=== PATIENT | female | born 1935 | race Caucasian/White ===

== ENCOUNTER → 2020-01-16 09:42 | Outpatient (BNVA) | payer MEDICARE, MEDICAID, SELFPAY | PROVIDERS: Visit Provider Internal Medicine Gastroenterology | DX: K74.60 Unspecified cirrhosis of liver (principal); R18.8 Other ascites; I85.00 Esophageal varices without bleeding; D69.6 Thrombocytopenia, unspecified; M06.9 Rheumatoid arthritis, unspecified; Z98.890 Other specified postprocedural states | CPT/HCPCS: 99213 ==

== ENCOUNTER 2020-01-20 11:39 | Observation (INO) | payer MEDICARE, MEDICAID, SELFPAY ==
[2020-01-20] VITALS (8 sets, daily range): BP systolic 120–180; BP diastolic 61–78; PULSE 53–73; RESP 18–20; TEMP 36.7–37.2; O2SAT 94–100; BMI 55.4
--- NOTE | 2020-01-20 | XR_ITS ---
EXAMINATION: XR KNEE, RIGHT CLINICAL INFORMATION: Right knee pain status post fall. COMPARISON: None TECHNIQUE: Four views of the right knee. FINDINGS: The femoral tibial joint spaces are unremarkable. A subcortical cyst is seen along the articular surface of the patella. There is no acute fracture or dislocation. No joint effusion is seen. The soft tissues are unremarkable. IMPRESSION: Probable degenerative subcortical cyst along the articular surface of the patella without other significant degenerative changes or acute abnormality.
--- NOTE | 2020-01-20 | CT_ITS ---
EXAMINATION: CT ANGIOGRAM NECK WITH CONTRAST CT ANGIOGRAM BRAIN WITH CONTRAST CLINICAL INFORMATION: Subarachnoid hemorrhage. COMPARISON: Head CT performed earlier the same day. TECHNIQUE: Test bolus sequences followed by intravenous administration 70 mL of Omnipaque 350. Helical imaging was performed in the axial plane from the thoracic inlet to the skull vertex. Delayed postcontrast imaging of the head was also performed. The data was processed at the senior medical technologist workstation for generation of MIP sequences. Angled MIPs and volume rendered reformatted images were also generated at an offline 3D workstation under concurrent supervision. Stenoses are assessed in accordance with NASCET criteria unless otherwise indicated. This CT examination was performed using dose optimization techniques as appropriate, variously including the following: *Automated exposure control *Adjustment of mA and/or kV according to patient size (this includes techniques or standardized protocols for targeted exams where dose is matched to indication/reason for exam; i.e. extremities or head) *Use of iterative reconstruction technique FINDINGS: BRAIN: Acute subarachnoid hemorrhage within multiple left greater than right cerebral sulci better demonstrated on the recent noncontrast CT of the head. There is no intracranial hemorrhage, hydrocephalus, extra-axial surface collection, midline shift, or other herniation pattern. Saunders to white matter differentiation is diffusely maintained without evidence of an evolved acute territorial infarct. The basilar cisterns are preserved. Near-complete opacification of the left maxillary sinus again noted. Prominent soft tissue density adjacent to the right hemimandible with adjacent reticulation, likely hematoma that should be correlated with direct visual inspection. No fractures. CERVICAL SOFT TISSUES AND LUNG APICES: Linear atelectasis versus scarring within the right upper lobe. Multilevel cervical spondylosis. NECK CTA: Left common carotid artery arises from the brachiocephalic artery, an anatomic variant. Proximal arch vessels are non-stenotic. The vertebral arteries are codominant. No significant ostial stenosis is visualized on either side. Both vertebral arteries are widely patent throughout their extracranial cervical course. Both common and internal carotid arteries are normal in course and caliber.] BRAIN CTA: [There is normal opacification of major intracranial arteries. No focal flow-limiting stenosis nor discrete proximal large artery occlusion. No aneurysm. Timing of the contrast bolus allows assessment of the major dural venous sinuses, which all opacify normally] IMPRESSION: - Acute subarachnoid hemorrhage within multiple left greater than right cerebral sulci better demonstrated on the recent noncontrast CT of the head. - No aneurysms and no high flow vascular malformations. No acute arterial occlusions and no significant arterial stenoses. - Prominent soft tissue density adjacent to the right hemimandible with adjacent reticulation, likely hematoma that should be correlated with direct visual inspection. No fractures. - Near-complete opacification of the left maxillary sinus central calcification again noted. Underlying mycetoma not excluded.
--- NOTE | 2020-01-20 | XR_ITS ---
EXAMINATION: CR X-RAY HAND AND WRIST LEFT CLINICAL INFORMATION: Left hand pain status post fall. COMPARISON: None TECHNIQUE: 4 views of the left hand and wrist were obtained. FINDINGS: There is generalized osteopenia. Mild radiocarpal degenerative joint changes are seen. A thinly corticated subcortical cyst is seen in the distal radial epiphysis measuring 0.8 cm. There is no acute fracture or dislocation. The carpal bones are normally aligned. The mild soft tissue swelling is seen in the second digit. IMPRESSION: 1. Mild radiocarpal degenerative joint changes. A subcortical cyst in the distal radius is nonspecific, but demonstrates benign features and may be degenerative in nature. 2. Mild soft tissue swelling in the second digit without acute underlying abnormality.
--- NOTE | 2020-01-20 | CT_ITS ---
EXAMINATION: CT HEAD WITHOUT CONTRAST CT CERVICAL SPINE WITHOUT CONTRAST CLINICAL INFORMATION: Status post fall. COMPARISON: Head CT report dated 01/15/2020. TECHNIQUE: Contiguous axial imaging was performed from the skullbase to vertex without intravenous administration of contrast. Multidetector helical imaging was performed through the cervical spine. Limited study with motion artifacts. This CT examination was performed using dose optimization techniques as appropriate, variously including the following: *Automated exposure control *Adjustment of mA and/or kV according to patient size (this includes techniques or standardized protocols for targeted exams where dose is matched to indication/reason for exam; i.e. extremities or head) *Use of iterative reconstruction technique DLP: 297.8, 632.6 mGy-cm. FINDINGS: HEAD: There are scattered mild amounts of subarachnoid hemorrhage in the cerebral sulci, more so on the left cerebral hemisphere. There is no evidence of acute territorial infarction. No abnormal mass effect or midline shift is seen. Saunders to white matter differentiation is well preserved. No extra-axial fluid collections are identified. The ventricles are normal in size. Mild chronic white matter microangiopathic changes. Mild right facial soft tissue swelling noted. The osseous structures are normal. Mild amount of fluid in the dependent right mastoid air cells. There is moderate mucosal thickening with areas of high density and calcification inferiorly in the left maxillary antrum. The remaining paranasal sinuses are aerated. CERVICAL SPINE: No acute fracture is identified in the cervical spine. There is significant disc space narrowing with mild endplate spurring and a retrosubluxation at C4-C5. Milder loss of disc height with degenerative endplate changes also visible at C6-C7. Multilevel facet arthropathy present, more severe on the right side at C5-C6. The atlantoaxial articulation is normally maintained. The paraspinal soft tissues are normal. There is scarring and bronchiectasis in the right upper lobe. The imaged left lung is clear. IMPRESSION: Limited study with motion artifacts. 1. Mild amount of scattered subarachnoid hemorrhage, more so on the left frontal sulci. 2. No evidence of acute cervical spine traumatic injury. Multilevel cervical spondylosis. 3. Moderate left maxillary sinus disease with calcific density in the dependent portion of the sinus. An underlying small mycetoma cannot be ruled out. Imaging findings discussed with ROBBY Earl at 2:06 PM on 01/20/2020.
--- NOTE | 2020-01-20 | XR_ITS ---
EXAMINATION: XR ELBOW, RIGHT CLINICAL INFORMATION: Right elbow pain status post fall. COMPARISON: None TECHNIQUE: AP, lateral, and oblique views of the right elbow. FINDINGS: The bones and soft tissues are normal. No fracture or joint effusion. Alignment is anatomic. Joint spaces are maintained. IMPRESSION: Unremarkable right elbow.
--- NOTE | 2020-01-20 | XR_ITS ---
EXAMINATION: CR X-RAY HAND AND WRIST RIGHT CLINICAL INFORMATION: Right hand and wrist pain. COMPARISON: None TECHNIQUE: 4 views of the right hand and wrist were obtained. FINDINGS: Mild radiocarpal degenerative joint changes are seen. The carpal bones are normally aligned. A tiny density seen distal to the ulnar styloid. The carpal bones are normally aligned. The soft tissues are unremarkable. IMPRESSION: 1. Mild radiocarpal degenerative joint changes. 2. Tiny density distal to the ulnar styloid is nonspecific, but does not appear acute and could be degenerative in nature or represent a nonunion ossification center.
--- NOTE | 2020-01-20 11:57 | PC.NURSE ---
SONS PHONE NUMBER AND NOTE OF CONCERN AURELIA MONROE [phone] CALLED, AND STATED THAT THE PATIENT HAS RECENTLY EXPERIENCED HEADACHES AND RECENTLY HAD A CT SCAN, HE JUST WANTED A PROVIDER TO KNOW OF THIS PRIOR TO TREATMENT.
--- NOTE | 2020-01-20 13:20 | PC.NURSE ---
PATIENT TRANSPORTED TO RADIOLOGY
--- NOTE | 2020-01-20 13:30 | ED.FALL ---
HPI - Fall General Chief Complaint: Fall Stated Complaint: LAC R EYE S/P TRIP&FALL @ [facility] Time Seen by Provider: 01/20/20 12:51 Source: patient Mode of arrival: EMS Limitations: language barrier (Malaysian Speaking) History of Present Illness HPI Narrative: 84yoF c PMHx of DM, HTN,breast cancer, thrombocytopenia, esophageal varices without bleeding and cirrhosis of liver with ascited presenting to the ED via EMS after she tripped and fell while walking out of [employer] witnessed by her Son c head injury no LOC reports being on aspirin otherwise no other blood thinner's c pain to R preorbital, eyebrow, chin, neck, R elbow, hand/wrist, L hand/wrist c abrasion, and R knee c abrasion. Unable to Clear C-spine due to c-spinal tenderness. Denies symptoms prior to the fall such as Dizziness, palpitations, CP/SOB or back pain. Related Data Home Medications Medication Instructions Recorded Confirmed blood sugar diagnostic #10 alycia 01/15/20 01/16/20 bumetanide 1 mg tablet 0.5 mg PO DAILY 01/15/20 01/20/20 cholecalciferol (vitamin D3) 50 50 mcg PO DAILY 01/15/20 01/20/20 mcg (2,000 unit) capsule ferrous sulfate 325 mg (65 mg 325 mg PO DAILY 01/15/20 01/20/20 iron) tablet lancets 28 gauge #100 01/15/20 01/16/20 lisinopril 5 mg tablet 5 mg PO DAILY 01/15/20 01/20/20 metformin 500 mg tablet 500 mg PO BID 01/15/20 01/20/20 oxycodone 5 mg tablet 5 mg PO BID 01/15/20 01/20/20 simvastatin 20 mg tablet 20 mg PO DAILY 01/15/20 01/20/20 syringe with needle 1 mL 27 x 1/2 #1 01/15/20 01/16/20 Allergies Allergy/AdvReac Type Severity Reaction Status Date / Time No Known Allergies* Allergy Uncoded 01/02/20 15:20 Review of Systems Review of Systems: Yes all other systems are reviewed and are negative Constitutional: Constitutional: Reports as per HPI, Denies frequent falls, Denies headache(s) and Denies weakness Eyes: Eyes: Reports as per HPI, Denies blurry vision, Denies change in vision, Denies loss of vision and Denies eye pain ENT: Reports as per HPI, Denies vertigo, Denies dizziness, Denies headache(s) and Denies disequilibrium Cardiovascular: Cardiovascular: Reports as per HPI, Denies chest pain, Denies Epigastric Pain, Denies syncope, Denies rapid heart rate, Denies pedal edema, Denies irregular heart rhythm, Denies lightheadedness, Denies radiating jaw, neck or arm pain, Denies palpitations, Denies dyspnea and Denies slow heart rate Respiratory: Respiratory: Denies dyspnea Gastrointestinal: Gastrointestinal: Denies diarrhea, Denies nausea and Denies vomiting Genitourinary: Genitourinary: Reports as per HPI Musculoskeletal: Musculoskeletal: Reports as per HPI, Denies abnormal gait, Denies back pain, Denies deformity, Denies limited range of motion, Denies numbness, Denies radiating pain into limb and Denies tingling Integumentary/Breasts: Skin/Breast: Reports as per HPI Neurologic: Reports as per HPI, Denies abnormal gait, Denies confusion, Denies vertigo, Denies dizziness, Denies syncope, Denies frequent falls, Denies headache(s), Denies lack of coordination, Denies focal weakness, Denies loss of vision, Denies memory loss, Denies numbness, Denies Sensory deficit (Neuro), Denies tingling, Denies paresthesias, Denies disequilibrium and Denies weakness Psychiatric: Psychiatric: Denies confusion and Denies memory loss Endocrine: Endocrine: Denies palpitations PMFSH Past Medical History Attestation statement: The following information was validated with the patient. 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 Osteoporosis Rheumatoid arthritis Thrombocytopenia Surgical History History of cholecystectomy (~2010) History of hemorrhoidectomy History of liver biopsy (~04/02/19) History of right mastectomy (~1985) Hx of colonoscopy Social History Social History Alcohol intake: never Smoking Status: Never smoker Use of substances other than those prescribed or required for medical reasons: No Advance Directives: No Advance Directives Information Provided: Yes Physical Exam Vital Signs and I&O and Narrative: Vital Signs and I&O: Vital Signs Temp 99.0 F 01/20/20 18:00 Pulse 66 01/20/20 18:00 Resp 18 01/20/20 18:00 BP 120/61 01/20/20 18:00 Pulse Ox 96 01/20/20 18:00 Intake & Output 01/20/20 01/20/20 01/21/20 06:59 18:59 06:59 Weight 128.7 kg Body Mass Index 55.4 Const: General: cooperative, healthy appearing, comfortable, no acute distress, well developed, alert, awake and Physically active; No confusion Orientation/consciousness: patient oriented x3 and No confusion Limitations: no limitations and language barrier (Malaysian Speaking) HENMT: Head: Yes normal to inspection, Yes No palpable skull fracture present, Yes normocephalic and Yes abrasion (above right eyebrow ) Ears: hearing grossly normal bilaterally and TM's normal bilaterally General nose exam: Normal external nose present, Normal nares present, No nasal polyps present, Normal nasal mucous membranes and turbinates present, Normal septum present, No nasal discharge present and Other nasal findings present (No septal hematoma noted ) Face and sinus: Yes normal facial exam, Yes face symmetric and Yes Facial tenderness on exam of face and sinuses (to right lower chin c contusion noted) Mouth: Normal oral and palatal mucosa present, lip normal, tongue normal, oropharynx normal and moist mucous membranes Teeth and gingiva: dentition normal, gingiva normal and other (No fractures noted to teeth or gingiva.) Throat: Yes posterior oropharynx normal, Yes tonsils normal and Yes uvula midline Eyes: General: appearance normal, both eyes and all related structures Visual Avalos: normal visual avalos by confrontation Alignment and Position: alignment normal Periorbital: periorbital findings normal Eyelids: Yes eyelids normal Conjunctivae: conjunctivae normal Sclerae: sclerae normal Corneas: corneas normal Pupils: Equal, round and reactive pupils present, Pupils normal by confrontation, Pupil accommodation reflex normal and Pupil size comments bilaterally 1 EOM: EOMs intact bilaterally Direct Ophthalmoscopy: normal light reflex, no photophobia, no papilledema, fundi normal bilaterally and anterior chamber normal Neck: Neck: Yes normal visual inspection, Yes trachea midline, Yes supple and No midline deformity Lymphatic: no lymphadenopathy noted Chest: Chest palpation & inspection: normal inspection of the chest and no tenderness Resp: Effort & Inspection: normal respiratory effort and able to speak in complete sentences Auscultation: clear to auscultation bilaterally, no crackles, no rales, no rhonchi and no wheezes Cardio: Rate: regular rate Rhythm: regular rhythm and abnormal rhythm Heart sounds: S1 normal heart sound present and S2 normal heart sound present Peripheral pulses: Peripheral pulses 2+ throughout GI: Inspection: Yes normal to inspection Palpation (GI): Soft to palpation, nontender, no guarding, not rigid and No hepatosplenomegaly present Percussion: Yes normal to percussion Auscultation: normal bowel sounds Back/Spine/Pelvis: Cervical Spine: normal cervical lordosis, cervical ROM normal, collar present, cervical muscular tenderness, Cervical spine tenderness (b/l paracervical muscular and mid-cervical) and No step off deformity Thoracic/Lumbar Spine: thoracic and lumbar spine normal to inspection, thoraco-lumbar ROM normal and straight leg raise negative bilaterally Pelvis: no pain with anterior-posterior compression Skin: General skin exam: no rashes or lesions noted, elasticity normal and turgor normal Neuro: General: patient oriented x3 and No confusion Cranial nerves: Yes CN's II-XII intact bilaterally, Yes Facial sensation intact/muscles of mastication intact, Yes Equal, round and reactive pupils present, Yes Normal accommodation reflex present, Yes Bilaterally intact EOM present, Yes Nystagmus not present, Yes Normal facial strength present, Yes Midline tongue present and Yes Normal gag reflex present Cognition (Neuro): normal cognition Motor exam (neuro): 5/5 motor strength present throughout Sensory Exam: Normal double simultaneous stimulation for sensation; No Sensory deficit (Neuro) Extrem: General: Yes normal to inspection, Yes full ROM, Yes capillary refill normal and Yes normal exam except as noted Right upper extremity: normal to inspection, full ROM, normal capillary refill, elbow/forearm Details: normal to inspection, tenderness, swelling, normal ROM, abrasion and distal pulses intact; no deformity and Extremity exam: right hand Details: normal to inspection, normal capillary refill, neuromotor exam normal, neurosensory exam normal, tendon exam normal, tenderness Location: of the palm and normal ROM of fingers Left upper extremity: normal to inspection, full ROM, normal capillary refill and hand Details: normal to inspection, normal capillary refill, neuromotor exam normal, neurosensory exam normal, tendon exam normal and tenderness Right lower extremity: normal to inspection, full ROM and normal capillary refill Left lower extremity: normal to inspection, full ROM, normal capillary refill and knee Details: normal to inspection, tenderness and abrasion Course Course Course Narrative: First evaluation of patient at 13:40PM. - 84yoF c PMHx of DM, HTN,breast cancer, thrombocytopenia, esophageal varices without bleeding and cirrhosis of liver with ascited presenting to the ED via EMS after she tripped and fell while walking out of [employer] witnessed by her Son c head injury no LOC reports being on aspirin otherwise no other blood thinner's c pain to R preorbital, eyebrow, chin, neck, R elbow, hand/wrist, L hand/wrist c abrasion, and R knee c abrasion. Unable to Clear C-spine due to c-spinal tenderness. Denies symptoms prior to the fall such as Dizziness, palpitations, CP/SOB or back pain. - Pt is A&OX3 not in any acute distress. Pt mildy Hypertensive at 180/78. All other vitals WNL. - Concern for SAH, fracture vs electrolyte abnormalities - Plan: Labs, CT scan of brain/cervical spine, Xray of r elbow, B/L hands/wrist, R knee. Provide Tylenol for pain then re-evaluate. Call received from [facility] at 14:08PM - Pt c mild SAH. Will provide 10mg of labetalol to attempt to lower the blood pressure to 140/80. Plan to Transfer at this time to [facility]. - Still awaiting labs. - Son updated at this time and now in room with Patient. Call received Back from [facility] I spoke to Neurologist at 14:50PM - I spoke to Dr. Neal at [facility] who recommends a CTA to be certain that the SAH did not occur prior to the fall or no prior aneurysms - CTA of head and neck ordered at this time. Consult c Dr. Stern who recommended CTA and if not prior aneurysm admit to our hospital for observation. - CTA head and neck revealed IMPRESSION: - Acute subarachnoid hemorrhage within multiple left greater than right cerebral sulci better demonstrated on the recent noncontrast CT of the head. - No aneurysms and no high flow vascular malformations. No acute arterial occlusions and no significant arterial stenoses. - Prominent soft tissue density adjacent to the right hemimandible with adjacent reticulation, likely hematoma that should be correlated with direct visual inspection. No fractures. - Near-complete opacification of the left maxillary sinus central calcification again noted. Underlying mycetoma not excluded. - I spoke to Dr. Stern the neurologist and he reported that she is able to be admitted here for further evaluation and treatment. Patient and son at bedside understand and agree with plan. Hospitalist understand agree plan as well. MDM - Fall Lab Data Result diagrams: 01/20/20 14:23 01/20/20 14:26 Labs: Lab Results 01/20/20 01/20/20 01/20/20 Range/Units 14:23 14:23 14:26 WBC 4.8 (4.8-10.8) X10*3/uL RBC 4.52 (4.20-5.50) X10*6/uL Hgb 12.5 (12.0-16.0) g/dl Hct 39.5 (37-47) % MCV 87.4 (80-98) fL MCH 27.7 (27.0-33.0) pg MCHC 31.6 (31.0-35.0) g/dl RDW 15.5 (11.0-16.0) % Plt Count 67 L (160-400) X10*3/uL MPV 13.9 H (9.4-12.3) fL Immature Gran % (Auto) 0.2 (0.0-0.4) % Neut % (Auto) 71.7 (45-73) % Lymph % (Auto) 21.6 (20-40) % [place] % (Auto) 5.9 (2-11) % Eos % (Auto) 0.4 (0-4) % Baso % (Auto) 0.2 (0-2) % Neut # (Auto) 3.4 (2.0-8.3) X10*3/uL Lymph # (Auto) 1.0 L (1.2-4.9) X10*3/uL [place] # (Auto) 0.3 (0.1-1.2) X10*3/uL Eos # (Auto) 0.0 (0.0-0.4) X10*3/uL Baso # (Auto) 0.0 (0.0-0.2) X10*3/uL Abs Immat Gran (auto) 0.01 (0.00-0.03) X10*3/uL Absolute Nucleated RBC 0.000 (0.0-0.012) X10*3/uL Nucleated RBC % (auto) 0.0 (0.0-0.2) /100WBC Hold Purple Top SEE NOTE Sodium 142 (135-145) mmol/L Potassium 4.5 (3.3-5.1) mmol/l Chloride 108 (96-108) mmol/L Carbon Dioxide 18 L (22-29) mmol/L Anion Gap 21 H (12-20) BUN 31 H (9-16) mg/dL Creatinine 1.05 (0.5-1.4) mg/dL Estim Creat Clear Calc 48.7 Estimated GFR 50 Random Glucose 114 (60-115) mg/dL Calcium 9.5 (8.4-10.2) mg/dL Critical Care Time Critical Care Time Critical Care Time: Yes Total Critical Care Time: 60 Attestation: I attestate my documentation Discharge Plan Discharge Clinical Impression: SAH (subarachnoid hemorrhage), Abrasion Fall Qualifiers: Encounter type: initial encounter Qualified Code(s): W19.XXXA - Unspecified fall, initial encounter Acute cervical sprain Qualifiers: Encounter type: initial encounter Qualified Code(s): S13.9XXA - Sprain of joints and ligaments of unspecified parts of neck, initial encounter Contusion Qualifiers: Encounter type: initial encounter Contusion area: head Elbow sprain Qualifiers: Encounter type: initial encounter Laterality: right Qualified Code(s): S53.401A - Unspecified sprain of right elbow, initial encounter Hand sprain Qualifiers: Encounter type: initial encounter Laterality: unspecified laterality Qualified Code(s): S63.90XA - Sprain of unspecified part of unspecified wrist and hand, initial encounter Sprain of wrist Qualifiers: Laterality: unspecified laterality Knee sprain Qualifiers: Encounter type: initial encounter Laterality: right Patient Disposition: Admitted As Inpatient Interventions: Admission Worksheet (ED) Last Done: 01/20/20 20:33 Discharge Date/Time: 01/20/20 20:34
[2020-01-20] MEDS: Acetaminophen 325 MG TABLET 650 MG PO (13:37)
--- NOTE | 2020-01-20 13:38 | PC.NURSE ---
pt return from ct scan, medicated per order
--- NOTE | 2020-01-20 14:25 | PC.NURSE ---
PT TX LINE CALLED [phone] @ [facility] REQUEST. RAKEL ANSWERS, TAKES PT INFO, CALL BACK NUMBER AND ASKS TO SPEAK WITH AMBREEN... AMBREEN TAKES OVER CALL RIGHT AWAY @ 14:14 01/20/2020
[2020-01-20] MEDS: Labetalol HCL 100 MG/20 ML VIAL 10 MG IVPUSH (14:28)
--- NOTE | 2020-01-20 14:37 | PC.NURSE ---
iv inserted, labs drawn, vehicle monitor technician applied- [id number], pt medicated per order, vss, son is at bedside per provider request, son also took patients necklace so it doesnt get lost per patient request, will continue to monitor.
[2020-01-20 14:39] LABS: Basophils Percent Auto 0.2 % (0-2); Imm Gran Abs Auto 0.01 X10*3/uL (0.00-0.03); Imm Gran Pct Auto 0.2 % (0.0-0.4); MANUAL DIFF FLAG SCAN; Monocytes Percent Auto 5.9 % (2-11); Red Cell Distribution Width 15.5 % (11.0-16.0); SCAN SMEAR FLAG 1
[2020-01-20 14:40] LABS: Eosinophils Percent Auto 0.4 % (0-4); Hematocrit 39.5 % (37-47); Hemoglobin 12.5 g/dl (12.0-16.0); Lymphocytes Percent Auto 21.6 % (20-40); Mean Corpuscular HGB Conc 31.6 g/dl (31.0-35.0); Mean Corpuscular Hemoglobin 27.7 pg (27.0-33.0); Mean Corpuscular Volume 87.4 fL (80-98); Mean Platelet Volume 13.9 fL (9.4-12.3); Monocytes Absolute Auto 0.3 X10*3/uL (0.1-1.2); Neutrophils Absolute Auto 3.4 X10*3/uL (2.0-8.3); Neutrophils Percent Auto 71.7 % (45-73); Red Blood Count 4.52 X10*6/uL (4.20-5.50); White Blood Count 4.8 X10*3/uL (4.8-10.8)
--- NOTE | 2020-01-20 14:41 | PC.NURSE ---
RETURN CALL FROM RAKEL OF THE [facility] PT TX LINE CALLS BACK TO SPEAK WITH AMBREEN CROOK TAKES CALL RIGHT AWAY @ 14:40
[2020-01-20 14:48] LABS: PLT ABN DIST 1; Platelet Count 67 X10*3/uL (160-400)
[2020-01-20 15:47] LABS: Anion Gap 21 (12-20); Blood Urea Nitrogen 31 mg/dL (9-16); Calcium 9.5 mg/dL (8.4-10.2); Carbon Dioxide 18 mmol/L (22-29); Chloride 108 mmol/L (96-108); Creatinine Clr Calc Pharmacy 48.7; Estimated Glomerular Filt Rate 50; Potassium 4.5 mmol/l (3.3-5.1); Sodium 142 mmol/L (135-145)
[2020-01-20 15:49] LABS: Glucose Random 114 mg/dL (60-115)
--- NOTE | 2020-01-20 16:10 | PC.NURSE ---
PATIENT REMAINS A&OX3, NSR 60S-70S ON JUICE WEIGHER, VSS, WILL CONTINUE TO MONITOR.
[2020-01-20] MEDS: iohexoL 350 MG/ML 100 ML INFUS..BTL IV (16:32)
--- NOTE | 2020-01-20 17:51 | PM.EVENT ---
Event Note Event Note: Admission note Patient seen and examined. Case discussed with Kathe Welsh NP. Agree with her history and physical. in brief, 84-year-old female who presented to hospital after mechanical fall. CT head showing small subarachnoid hemorrhage. Case discussed by the ER providers with Neurology who recommended observation at [facility] [place]. Remainder per H&P
--- NOTE | 2020-01-20 18:29 | PC.NURSE ---
patient a&ox3, cable tester nsr 60-70s, pt watching tv, ate dinner, vss, will continue to monitor.
--- NOTE | 2020-01-20 18:32 | PC.NURSE ---
called floor to give report, no answer by nurse when transferred
--- NOTE | 2020-01-20 18:42 | PM.IMHP ---
History of Present Illness Date of Service: 01/20/20 Chief Complaint: Fall 84-year-old Cook Islander-speaking woman presenting to the ER after a fall. Patient was accompanied by her son. Her son reported that they were at [employer] today and has never walking around the building he heard a Bang and turned around and noted that his mother had fallen. She reported that she had tripped on her foot and fell to the ground. According to the patient's son she had no loss of consciousness at any time. He called EMS immediately. Patient denies any headache, visual changes, loss of consciousness. No recent illness. She had no nausea or vomiting. She was noted to have multiple areas of bruising including to her right eyebrow. Brain CT did show subarachnoid hemorrhage to left cerebral hemisphere. No evidence of acute cervical spine injury. She also had a knee, hand, wrist and elbow x-ray all negative for any acute abnormality. Labs all within acceptable limits. Vital signs stable. In the ER, she received Tylenol, labetalol and Iohexol. She will be placed on observation for monitoring after subarachnoid hemorrhage. Review of Systems Constitutional: Constitutional: Denies frequent falls, Denies headache(s) and Denies weakness Eyes: Eyes: Denies loss of vision ENT: Denies vertigo, Denies dizziness, Denies headache(s) and Denies disequilibrium Cardiovascular: Cardiovascular: Denies syncope Respiratory: Respiratory: Reports no additional respiratory complaints Gastrointestinal: Gastrointestinal: Reports no additional gastrointestinal complaints Comments: Obese abdomen. Musculoskeletal: Musculoskeletal: Denies abnormal gait, Denies numbness and Denies tingling Neurologic: Reports as per HPI, Denies abnormal gait, Denies confusion, Denies vertigo, Denies dizziness, Denies syncope, Denies frequent falls, Denies headache(s), Denies lack of coordination, Denies focal weakness, Denies loss of vision, Denies memory loss, Denies numbness, Denies Sensory deficit (Neuro), Denies tingling, Denies paresthesias, Denies disequilibrium and Denies weakness Psychiatric: Psychiatric: Denies confusion and Denies memory loss [facility] 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 Surgical History History of cholecystectomy (~2010) History of hemorrhoidectomy History of liver biopsy (~04/02/19) History of right mastectomy (~1985) Hx of colonoscopy Social History Alcohol intake: never Smoking Status: Never smoker Use of substances other than those prescribed or required for medical reasons: No Advance Directives: No Advance Directives Information Provided: Yes Meds Allergies Allergy/AdvReac Type Severity Reaction Status Date / Time No Known Allergies* Allergy Uncoded 01/02/20 15:20 Home Medications Medication Instructions Recorded Confirmed Type blood sugar diagnostic #10 ea 01/15/20 01/16/20 History bumetanide 1 mg tablet 0.5 mg PO DAILY 01/15/20 01/20/20 History cholecalciferol (vitamin D3) 50 50 mcg PO DAILY 01/15/20 01/20/20 History mcg (2,000 unit) capsule ferrous sulfate 325 mg (65 mg 325 mg PO DAILY 01/15/20 01/20/20 History iron) tablet lancets 28 gauge #100 ea 01/15/20 01/16/20 History lisinopril 5 mg tablet 5 mg PO DAILY 01/15/20 01/20/20 History metformin 500 mg tablet 500 mg PO BID 01/15/20 01/20/20 History oxycodone 5 mg tablet 5 mg PO BID 01/15/20 01/20/20 History simvastatin 20 mg tablet 20 mg PO DAILY 01/15/20 01/20/20 History syringe with needle 1 mL 27 x 1/2 #1 ea 01/15/20 01/16/20 History Physical Exam Vital Signs and Narrative: Vital Signs: Last Vital Signs Temp 99.0 F 01/20/20 18:00 Pulse 66 01/20/20 18:00 Resp 18 01/20/20 18:00 BP 120/61 01/20/20 18:00 Pulse Ox 96 01/20/20 18:00 Body Mass Index 55.4 Appearing in no acute distress head is normocephalic , Bruise and skin tear to right eyebrow eyes pupils are PERRLA sclera is anicteric mouth throat mucous membranes are intact and moist neck is supple no lymphadenopathy, no JVD noted lung sounds are clear to auscultation heart regular rate rhythm, clear S1, S2 positive bowel sounds, abdomen is soft, nontender, obese from history of cirrhosis neuro patient is alert x3, no focal deficits Const: General: No confusion Orientation/consciousness: No confusion Neuro: General: No confusion Sensory Exam: No Sensory deficit (Neuro) Results Labs Labs: Laboratory Tests 01/20/20 01/20/20 01/20/20 14:23 14:23 14:26 WBC 4.8 RBC 4.52 Hgb 12.5 Hct 39.5 MCV 87.4 MCH 27.7 MCHC 31.6 RDW 15.5 Plt Count 67 L MPV 13.9 H Immature Gran % (Auto) 0.2 Neut % (Auto) 71.7 Lymph % (Auto) 21.6 Sioux % (Auto) 5.9 Eos % (Auto) 0.4 Baso % (Auto) 0.2 Neut # (Auto) 3.4 Lymph # (Auto) 1.0 L Sioux # (Auto) 0.3 Eos # (Auto) 0.0 Baso # (Auto) 0.0 Abs Immat Gran (auto) 0.01 Absolute Nucleated RBC 0.000 Nucleated RBC % (auto) 0.0 Hold Purple Top SEE NOTE Sodium 142 Potassium 4.5 Chloride 108 Carbon Dioxide 18 L Anion Gap 21 H BUN 31 H Creatinine 1.05 Estim Creat Clear Calc 48.7 Estimated GFR 50 Random Glucose 114 Calcium 9.5 Assessment and Plan (1) SAH (subarachnoid hemorrhage): Status: Acute (2) Fall: Qualifiers: Encounter type: initial encounter Qualified Code(s): W19.XXXA - Unspecified fall, initial encounter Status: Acute (3) Hypertension: Status: Acute (4) Diabetes mellitus: Status: Acute 84-year-old woman placed on observation after having a fall and sustaining a subarachnoid hemorrhage. She had no neuro deficits at any point in time. # Subarachnoid hemorrhage. Small area of bleed mainly to the left frontal lobe. No evidence of aneurysmal bleeding. [place] [facility] [place], neuro checks, neurology consultation, repeat brain CT in the morning. # Fall. History of frequent falls. Physical therapy consultation. Admitted with assist. # Hypertension. Stable blood pressure. Continue lisinopril, Bumex # diabetes mellitus. Sliding scale, ADA diet, continue metformin. # hyperlipidemia. Continue statin. #Anemia. Continue iron supplementation #DVT prophylaxis. No chemical prophylaxis due to subarachnoid hemorrhage. Discussed with Dr. Lam full code Quality VTE Deep Vein Thrombosis/Pulmonary Embolism Present on Admission: No Contraindication No VTE Prophylaxis: Contraindicated ( subarachnoid hemorrhage)
--- NOTE | 2020-01-20 18:54 | PC.NURSE ---
attempted to call floor to give report, special education secretary stated she would tiger text the nurse to call
--- NOTE | 2020-01-20 19:51 | PC.NURSE ---
report given to floor
[2020-01-20 21:43] LABS: Glucose, Whole Blood 109 mg/dL (60-115)
[2020-01-20] MEDS: oxyCODONE HCl Immed Release 5 MG TABLET PO (23:19)
[2020-01-21] VITALS (11 sets, daily range): BP systolic 110–134; BP diastolic 58–73; PULSE 55–66; RESP 18–20; TEMP 36.6–37.1; O2SAT 94–100
--- NOTE | 2020-01-21 | CT_ITS ---
EXAMINATION: CT HEAD WITHOUT CONTRAST CLINICAL INFORMATION: Follow-up hemorrhage COMPARISON: Previous head CT scan from yesterday TECHNIQUE: Contiguous axial imaging was performed from the skull base to vertex without intravenous administration of contrast. This CT examination was performed using dose optimization techniques as appropriate, variously including the following: *Automated exposure control *Adjustment of mA and/or kV according to patient size (this includes techniques or standardized protocols for targeted exams where dose is matched to indication/reason for exam; i.e. extremities or head) *Use of iterative reconstruction technique DLP: 696 mGy-cm FINDINGS: There is bilateral subarachnoid hemorrhage, left greater than right. Subarachnoid hemorrhage adjacent to the left frontal lobe appears increased from yesterday's exam. For example, largest area measures 1.3 x 2.3 cm axial image 56 series 4 compared to 1.1 x 1.2 cm on yesterday's exam. Small amount of subarachnoid hemorrhage in the right hemisphere appears decreased. The ventricles and extra-axial CSF spaces are slightly prominent suggestive of mild generalized atrophy. There is mild nonspecific periventricular white matter disease. No mass, mass effect or infarct is seen. There are chronic inflammatory changes in the left maxillary sinus and soft tissue opacification of the right mastoid air cells that appears unchanged. No skull fracture is seen. IMPRESSION: Slight interval increase in extra-axial subarachnoid hemorrhage adjacent to the left frontal lobe compared to yesterday's exam. Findings were communicated to Dr. Lam by telephone on 01/21/2020 at 4:45 PM.
[2020-01-21] MEDS: Ferrous Sulfate 324 MG TABLET.DR PO (08:52)
[2020-01-21] MEDS: oxyCODONE HCl Immed Release 5 MG TABLET PO ×2 (08:52→21:13)
[2020-01-21] MEDS: lisinopriL 5 MG TABLET PO (08:53)
[2020-01-21] MEDS: Atorvastatin Calcium 10 MG TABLET PO (08:53)
[2020-01-21] MEDS: metFORMIN HCl 500 MG TABLET PO ×2 (08:53→21:13)
[2020-01-21] MEDS: Bumetanide 1 MG TABLET 0.5 MG PO (08:53)
--- NOTE | 2020-01-21 13:19 | MHC.CM.PN ---
dc plan is mfor ,pt to mreturn home with her son when dcd dson would be agreeable to cvna if ordered by
--- NOTE | 2020-01-21 15:32 | PM.IMPN ---
Subjective Subjective Date of Service: 01/21/20 Interval History: seen and examined this AM with translator and interpreter services bedside pt reports some wrist and knee pain denies carrero denies n/v Review of Systems General - no fevers or chills Cardiovascular - no chest pain Respiratory - no shortness of breath or cough Abdominal- no abdominal pain, nausea, vomiting, diarrhea Physical Exam Vital Signs and I&O and Narrative: Vital Signs and I&O: Vital Signs Temp 97.9 F 01/21/20 14:00 Pulse 55 01/21/20 14:00 Resp 18 01/21/20 14:00 BP 110/58 L 01/21/20 14:00 Pulse Ox 98 01/21/20 14:00 Intake & Output 01/20/20 01/21/20 01/21/20 18:59 06:59 18:59 Intake Total 200 / 200 360 / 360 Output Total Balance 199 / 199 360 / 360 Urine Output (Aver age ml/kg/hr) 0.00 0.00 Weight 128.7 kg Intake: Intake, Oral Vani unt 200 / 200 360 / 360 Output: Output, Urine Am ount Other: Breakfast % Eate n 75% Lunch % Eaten 75% Number of Unmeas ured Voids 1 Urine Bathroom Bathroom Urine Color Summer Yellow Body Mass Index 55.4 General - no acute distress, appears comfortable Cardiovascular - regular rate and rhythm, S1-S2 Lungs - normal respiratory effort, clear to auscultation bilaterally, no wheezing Abdomen - soft, nontender, no rebound regarding Extremities - no edema bilaterally Neuro - awake and alert, no focal deficits Skin - bruising around the chin, R periorbital swelling Objective Data Current Medications Generic Name Dose Route Start Last Admin Trade Name Kevinq PRN Reason Stop Dose Admin Acetaminophen 650 mg 01/20/20 22:32 Acetaminophen 325 Mg Tablet PO Q6H PRN Fever Atorvastatin Calcium 10 mg 01/21/20 09:00 01/21/20 08:53 Atorvastatin Calcium 10 Mg Tablet PO 10 mg DAILY VY Administration Bumetanide 0.5 mg 01/21/20 09:00 01/21/20 08:53 Bumetanide 1 Mg Tablet PO 0.5 mg DAILY VY Administration Protocol Ferrous Sulfate 324 mg 01/21/20 09:00 01/21/20 08:52 Ferrous Sulfate 324 Mg Tablet. PO 324 mg DAILY VY Administration Lisinopril 5 mg 01/21/20 09:00 01/21/20 08:53 Lisinopril 5 Mg Tablet PO 5 mg DAILY VY Administration Protocol Metformin HCl 500 mg 01/20/20 22:32 01/21/20 08:53 Metformin Hcl 500 Mg Tablet PO 500 mg BID VY Administration Ondansetron HCl 4 mg 01/20/20 22:32 Ondansetron Hcl 4 Mg/2 Ml Vial IVPUSH Q8H PRN Nausea Oxycodone HCl 5 mg 01/20/20 22:32 01/21/20 08:52 Oxycodone Hcl Immed Release 5 Mg Tablet PO 5 mg BID VY Administration Pharmacy Consult 1 each 01/20/20 17:48 Consult Rx Perform Med Rec MISCELLANE ONCE PRN Consult order Vitamin D 50 mcg 01/21/20 09:00 01/21/20 08:53 Cholecalciferol (Vitamin D3) 25 Mcg Tablet PO Not Given DAILY [facility] Labs CBC & Chem 7: 01/20/20 14:23 01/20/20 14:26 Labs: Laboratory Results - last 24 hr 01/20/20 01/20/20 14:26 21:37 Anion Gap 21 H Estim Creat Clear Calc 48.7 Estimated GFR 50 POC Glucose 109 Random Glucose 114 Calcium 9.5 Progress Note: A&P (1) Fall: Status: Acute (2) SAH (subarachnoid hemorrhage): Status: Acute Assessment and Plan: This is a 84 yo F who had a mechanical fall and sustained a small SAH and is admitted for observation 1. Subarachnoid hemorrhage repeat ct order, pending neuro eval and input 2. Mechanical fall seen by PT -- home with PT 3. Hypertension BP stable continue meds 4. diabetes mellitus. ADA diet. Metformin. 5. HLD statin 6. Anemia. Continue iron supplementation mec. due to SAH Quality VTE Deep Vein Thrombosis/Pulmonary Embolism Present on Admission: No Contraindication No VTE Prophylaxis: Contraindicated ( subarachnoid hemorrhage)
[2020-01-22] VITALS (8 sets, daily range): BP systolic 102–141; BP diastolic 51–69; PULSE 58–72; RESP 16–20; TEMP 36.1–36.8; O2SAT 96–98
[2020-01-22 08:08] LABS: Glucose, Whole Blood 98 mg/dL (60-115)
[2020-01-22] MEDS: Atorvastatin Calcium 10 MG TABLET PO (10:00)
[2020-01-22] MEDS: Ferrous Sulfate 324 MG TABLET.DR PO (10:01)
[2020-01-22] MEDS: oxyCODONE HCl Immed Release 5 MG TABLET PO (10:01)
[2020-01-22] MEDS: metFORMIN HCl 500 MG TABLET PO (10:01)
[2020-01-22] MEDS: Cholecalciferol (Vitamin D3) 25 MCG TABLET 50 MCG PO (10:01)
[2020-01-22] MEDS: Bumetanide 1 MG TABLET 0.5 MG PO (10:03)
[2020-01-22 11:37] LABS: Glucose, Whole Blood 110 mg/dL (60-115)
--- NOTE | 2020-01-22 11:54 | MHC.CM.PN ---
per rounds pt likely to be dcd today with vna
--- NOTE | 2020-01-22 11:57 | P.DS_ITS ---
DS: Providers Provider Date of admission: 01/20/20 17:26 Primary care physician: Dom Maynard MD Consults: 01/20/20 22:32 Consult to Neurology Routine Consulting Provider: Radha Stern Reason for consultation: FALL, BLEED Has provider been notified: No DS: Diagnosis Discharge Diagnosis (1) Fall: Status: Acute (2) SAH (subarachnoid hemorrhage): Status: Acute DS: Summary Hospital Course Hospital Course: HPI from the admission H&P: 84-year-old Polish-speaking woman presenting to the ER after a fall. Patient was accompanied by her son. Her son reported that they were at [place] today and has never walking around the building he heard a Bang and turned around and noted that his mother had fallen. She reported that she had tripped on her foot and fell to the ground. According to the patient's son she had no loss of consciousness at any time. He called EMS immediately. Patient denies any headache, visual changes, loss of consciousness. No recent illness. She had no nausea or vomiting. She was noted to have multiple areas of bruising including to her right eyebrow. Brain CT did show subarachnoid hemorrhage to left cerebral hemisphere. No evidence of acute cervical spine injury. She also had a knee, hand, wrist and elbow x-ray all negative for any acute abnormality. Labs all within acceptable limits. Vital signs stable. In the ER, she receiv ed Tylenol, labetalol and Iohexol. She will be placed on observation for monitoring after subarachnoid hemorrhage. patient was observed in the hospital for 2 nights. She remained neurologically stable without any focal deficits. She underwent a repeat CT brain which showed slight increase in her subarachnoid hemorrhage. She was seen by neurology and cleared for discharge. There did recommend a repeat CT scan in about 4-[address] scan has been ordered 5 weeks from discharge. She and her son have been informed not to take any blood thinners until told to to do so by her [facility] doctors. For her fall, she was evaluated by Physical therapy who recommend home with PT at home. Time Spent with Patient Time attestation: Total time spent providing and/or coordinating discharge services: Quality: VTE Contraindication No VTE Prophylaxis: Contraindicated ( subarachnoid hemorrhage) Deep Vein Thrombosis/Pulmonary Embolism Present on Admission: No Physical Exam Vital Signs and I&O and Narrative: Vital Signs and I&O: Vital Signs Temp 98 F 01/22/20 10:00 Pulse 72 01/22/20 10:00 Resp 20 01/22/20 10:00 BP 102/66 01/22/20 11:18 Pulse Ox 97 01/22/20 10:00 Intake & Output 01/21/20 01/22/20 01/22/20 18:59 06:59 18:59 Intake Total 540 / 980 440 / 980 440 / 440 Output Total 300 / 300 Balance 540 / 680 140 / 680 439 / 439 Urine Output (Aver age ml/kg/hr) 0.19 0.00 Intake: Intake, Oral Vani unt 540 / 980 440 / 980 220 / 220 Intake, Oral Sup plement Amount 220 / 220 Output: Output, Urine Am ount 300 / 300 Other: Breakfast % Eate n 75% 100% Lunch % Eaten 75% Dinner % Eaten 75% Number of Unmeas ured Voids 1 1 150 Number of Bowel Movements 1 Urine Bathroom Bathroom Bathroom Urine Color Yellow Yellow Yellow Last Bowel Movem ent 01/22/20 Stool Bathroom Stool Color Brown Stool Consistenc y Pasty Body Mass Index 55.4 DS: Data Data Completed and Pending Labs on day of discharge: Labs from last 24 hours 01/22/20 01/22/20 11:28 08:05 POC Glucose 110 98 Discharge Plan Discharge Patient Disposition: Home Health Service Referrals: Dom Maynard MD [Primary Care Provider] - Discharge Medications: Continued oxycodone 5 mg tablet 5 mg PO BID RF: 0 lisinopril 5 mg tablet 5 mg PO DAILY RF: 0 ferrous sulfate 325 mg (65 mg iron) tablet 325 mg PO DAILY RF: 0 simvastatin 20 mg tablet 20 mg PO DAILY RF: 0 metformin 500 mg tablet 500 mg PO BID RF: 0 (DME) lancets 28 gauge misc See Rx Instructions ea Not Applicable DAILY Qty: 100 RF: 0 (DME) blood sugar diagnostic Strip See Rx Instructions ea Not Applicable DAILY Qty: 10 RF: 0 (DME) syringe with needle 1 mL 27 x 1/2 syringe See Rx Instructions ml subcut QWEEK Qty: 1 RF: 0 bumetanide 1 mg tablet 0.5 mg PO DAILY RF: 0 cholecalciferol (vitamin D3) [Vitamin D3] 50 mcg (2,000 unit) capsule 50 mcg PO DAILY RF: 0 Discharge Orders: Discharge Order (Routine); Ordered 01/22/20 Ordered By: Pelon Lam Diet: advance to your usual diet Activity on Discharge: As tolerated Other Ambulatory Orders: CT head/brain wo con (Routine) Timeframe: 5 Weeks Facility: [facility] - Location: CT Scan Ordered By: Pelon Lam Visit Report Forms: Patient Portal Discharge page Care Plan Goals: Do not take any blood thinners such as aspirin Follow-up with your primary care doctor Repeat a CT scan of the brain in about 5 weeks Health Concerns: Subarachnoid hemorrhage Plan of Treatment: no aspirin and repeat CT scan in about 5 weeks
--- NOTE | 2020-01-22 12:00 | W.MHC.F2F ---
Service Date Service Date: 01/22/20 Encounter Date of encounter: 01/22/20 Reasons for Services Signs and symptoms assessed: Neurological assessment Reason for nursing home: neurological assessment Reason for physical therapy: home safety and mobility and therapeutic exercises overseeing care: Dr. Be Homebound: Leaving the home is medically contraindicated at this time without the asist of a device and/or another person due th the listed conditions above and below. Certification: Based on the above findings, I certify that this patient is confined to the home and needs intermittent nursing home care, physical therapy and/or speech therapy, or continues to need occupational therapy. The patient is under my care, and I have initiated the establishment of the plan of care. The patient will be followed by a physician who will periodically review the plan of care.
--- NOTE | 2020-01-22 15:55 | CONS_ITS ---
DATE OF SERVICE: 01/21/2020 HISTORY OF PRESENT ILLNESS: This is an 84-year-old woman, who was at [place] yesterday and tripped and fell forward, landing on the right side of her face and her right wrist, which had badly bruised. There was no loss of consciousness. She generally has good balance and does not fall. She has no previous history of stroke or TIA. She has no dizziness or headache. She has had x-rays, which are apparently unremarkable. PHYSICAL EXAMINATION: On examination, she is alert and oriented with normal intellectual functions. Cranial nerves II through XII are normal. Muscle tone and strength are normal in all 4 extremities. Deep tendon reflex was symmetrical, 2+. Plantar responses are flexor. Large ecchymosis in the right lower jaw and the left wrist. Ct shows small traumatic SAH IMPRESSION: Head trauma after trip and fall injury. Traumatic subarachnoid hemorrhage. RECOMMENDATION: Observation. No further intervention is necessary. Thank you for allowing me to participate in her care. MD RADHA Durbin/TORIBIO / [phone] MTDGiuliano
== END 2020-01-22 13:49 | disposition home health service (06) ==
LOC: HO.ED 17:22 → HO.IMC 01-21 07:17
PROVIDERS: Physician Assistant Medical; Admitting Provider Nurse Practitioner Acute Care; Emergency Provider Internal Medicine; Visit Provider Family Medicine
DX: S06.6X0A Traumatic subarachnoid hemorrhage without loss of consciousness, initial encounter (principal); S05.31XA Ocular laceration without prolapse or loss of intraocular tissue, right eye, initial encounter; W01.0XXA Fall on same level from slipping, tripping and stumbling without subsequent striking against object, initial encounter; Y93.89 Activity, other specified; Y92.511 Restaurant or cafe as the place of occurrence of the external cause; Y99.8 Other external cause status; M25.561 Pain in right knee; M25.531 Pain in right wrist; M79.641 Pain in right hand; M79.642 Pain in left hand; M25.521 Pain in right elbow; E11.9 Type 2 diabetes mellitus without complications; I10 Essential (primary) hypertension; E78.5 Hyperlipidemia, unspecified; D64.9 Anemia, unspecified; K74.60 Unspecified cirrhosis of liver; I85.10 Secondary esophageal varices without bleeding; Z79.84 Long term (current) use of oral hypoglycemic drugs; Z79.899 Other long term (current) drug therapy
CPT/HCPCS: 36415; 70450; 70496; 70498; 72125; 73080; 73110; 73130; 73564; 80048; 82947; 85025; 96374; 96375; 97110; 97116; 97162; 99219; 99284; 99285; 99291

== ENCOUNTER 2020-01-26 09:39 | Emergency (ER) | payer MEDICARE, MEDICAID, SELFPAY ==
[2020-01-26 09:48] VITALS: BP 136/72; PULSE 64; PULSE 70; RESP 18; TEMP 37.1; O2SAT 100; O2SAT 98; BMI 30.2
--- NOTE | 2020-01-26 10:12 | CT_ITS ---
EXAMINATION: CT HEAD W/O IV CONTRAST CT CERVICAL SPINE W/O IV CONTRAST CLINICAL INFORMATION: History of fall and episode of right arm tremors. COMPARISON: Head CT from 01/20/2020 and 01/21/2020. TECHNIQUE: Head - Contiguous axial imaging of the head was performed from the skull base to the vertex without the administration of intravenous contrast, and axial images are reconstructed at 2 mm and 5 mm slice thickness. Cervical spine - A volumetric, helical CT acquisition of the cervical spine was obtained without contrast; in addition to the standard set of axial images, multiplanar reformatted images were provided in the coronal and sagittal imaging planes. This CT examination was performed using dose optimization techniques as appropriate, variously including the following: *Automated exposure control *Adjustment of mA and/or kV according to patient size (this includes techniques or standardized protocols for targeted exams where dose is matched to indication/reason for exam; i.e. extremities or head) *Use of iterative reconstruction technique DLP: 589 mGy-cm for the head 352 mGy-cm for the cervical spine FINDINGS: HEAD: Interval improvement compared to 01/21/2020 as manifest by significant decreased amount of hyperdense subarachnoid hemorrhage overlying the left frontal lobe. 1.7 x 1.3 x 1.4 cm focus of hyperdense intraparenchymal hemorrhage with surrounding vasogenic edema in the left frontal lobe is stable in size compared to 01/21/2020. No new sites of hemorrhage. No significant mass effect around the intraparenchymal hematoma. No midline shift or other herniation pattern. The ventricles have normal size and configuration; no hydrocephalus. The brainstem and cerebellar hemispheres are unremarkable. The cerebellar tonsils are in normal position. No evidence of calvarial fracture. Mucosal thickening of the partially visualized left maxillary sinus. No air-fluid levels within the visualized paranasal sinuses. Again noted is fluid/opacification of some of the right mastoid air cells. No mastoid fracture. No fracture or malalignment at either temporomandibular joint. Lenses are extracted from the globes of each orbit. CERVICAL SPINE: No acute abnormalities compared to 01/20/2020. The craniocervical junction is normal. The occipital condyles, dens and atlantodental articulation are intact. The vertebral body heights are normal. Again noted is discovertebral degenerative change and minimal retrolisthesis at C4-C5. Mild degenerative disc space narrowing at C6-C7. Multilevel facet osteoarthritis, worst on the right at C5-C6. Facet osteoarthritis at C7-T1 is associated with chronic, 0.2 cm subluxation of C7 on T1. No significant narrowing of the central spinal canal. No fractures in the anterior or posterior elements. No prevertebral soft tissue swelling. Thyroid gland is unremarkable. Again noted is linear opacity of scarring and traction bronchiectasis at right lung apex. No apical pneumothorax. IMPRESSION: * Interval improvement compared to 01/21/2020 as manifest by decreased amount of subarachnoid hemorrhage overlying the left frontal lobe. * A hyperdense intraparenchymal hematoma with surrounding vasogenic edema in the left frontal lobe is stable in size compared to 01/21/2020. No significant mass effect. No new sites of bleeding. * No fractures within the degenerated cervical spine.
--- NOTE | 2020-01-26 10:12 | XR_ITS ---
EXAMINATION: XR CHEST CLINICAL INFORMATION: Right chest wall pain after fall. COMPARISON: None TECHNIQUE: 2 views of the chest were obtained. FINDINGS: Lungs are well expanded and clear. No consolidation, pleural effusion or pneumothorax. Cardiac silhouette is normal in size. The descending thoracic aorta is tortuous. The hilar contours are normal. The visualized bones are intact. No rib fractures are identified on these standard 2 views of the chest. No pneumoperitoneum. IMPRESSION: No acute pulmonary disease.
[2020-01-26 10:28] VITALS: BP 123/61; PULSE 58; RESP 16; O2SAT 98
[2020-01-26 10:40] LABS: Basophils Percent Auto 0.4 % (0-2); Hemoglobin 10.9 g/dl (12.0-16.0); MANUAL DIFF FLAG SCAN; Mean Corpuscular Volume 86.7 fL (80-98); Monocytes Absolute Auto 0.5 X10*3/uL (0.1-1.2); PLT CLUMP 1; Red Cell Distribution Width 15.4 % (11.0-16.0); SCAN SMEAR FLAG 1
[2020-01-26 10:42] LABS: Eosinophils Percent Auto 0.4 % (0-4); Hematocrit 33.9 % (37-47); Imm Gran Abs Auto 0.02 X10*3/uL (0.00-0.03); Imm Gran Pct Auto 0.4 % (0.0-0.4); Lymphocytes Percent Auto 21.3 % (20-40); Mean Corpuscular HGB Conc 32.2 g/dl (31.0-35.0); Mean Corpuscular Hemoglobin 27.9 pg (27.0-33.0); Mean Platelet Volume 11.7 fL (9.4-12.3); Monocytes Percent Auto 9.7 % (2-11); Neutrophils Absolute Auto 3.1 X10*3/uL (2.0-8.3); Neutrophils Percent Auto 67.8 % (45-73); Red Blood Count 3.91 X10*6/uL (4.20-5.50); White Blood Count 4.6 X10*3/uL (4.8-10.8)
[2020-01-26 10:43] LABS: Platelet Count 86 X10*3/uL (160-400)
[2020-01-26 10:44] LABS: SLIDE REVIEW VERIFIED
[2020-01-26 10:48] LABS: INTERNATIONAL NORM RATIO 1.2 (0.9-1.1)
--- NOTE | 2020-01-26 10:54 | ED.GENADULT ---
HPI - General Adult General Chief complaint: General Medical Time Seen by Provider: 01/26/20 09:54 Source: patient, family and EMS Mode of arrival: EMS Limitations: no limitations History of Present Illness HPI narrative: patient brought to the ED for evaluation for resolved right arm tremor. Son noticed while patient was brushing her hair her right arm was tremulous for 5minutes. Patient also states similar story. Patient denies ever losing consciousness. 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 Patient states every episode, she did not lose any consciousness. Patient denies any urinary /bowel incontinence. patient also states right-sided chest pain since she fell last week. Related Data Home Medications Medication Instructions Recorded Confirmed blood sugar diagnostic #10 ea 01/15/20 01/21/20 bumetanide 1 mg tablet 0.5 mg PO DAILY 01/15/20 01/20/20 cholecalciferol (vitamin D3) 50 50 mcg PO DAILY 01/15/20 01/20/20 mcg (2,000 unit) capsule ferrous sulfate 325 mg (65 mg 325 mg PO DAILY 01/15/20 01/20/20 iron) tablet lancets 28 gauge #100 ea 01/15/20 01/21/20 lisinopril 5 mg tablet 5 mg PO DAILY 01/15/20 01/20/20 metformin 500 mg tablet 500 mg PO BID 01/15/20 01/20/20 oxycodone 5 mg tablet 5 mg PO BID 01/15/20 01/20/20 simvastatin 20 mg tablet 20 mg PO DAILY 01/15/20 01/20/20 syringe with needle 1 mL 27 x 1/2 #1 ea 01/15/20 01/21/20 Allergies Allergy/AdvReac Type Severity Reaction Status Date / Time No Known Allergies* Allergy Uncoded 01/02/20 15:20 Review of Systems Review of Systems: Yes all other systems are reviewed and are negative Eyes: Eyes: Reports as per HPI and Reports no additional eye complaints ENT: Reports system reviewed and no additional complaints, except as documented Cardiovascular: Cardiovascular: Reports as per HPI and Reports no additional cardiovascular complaints Respiratory: Respiratory: Reports as per HPI and Reports no additional respiratory complaints Gastrointestinal: Gastrointestinal: Reports as per HPI and Reports no additional gastrointestinal complaints Musculoskeletal: Musculoskeletal: Reports no additional musculoskeletal complaints and Reports as per HPI Neurologic: Reports system reviewed and no additional complaints, except as documented and Reports as per HPI Psychiatric: Psychiatric: Reports no additional psychiatric complaints and Reports as per HPI [facility] Past Medical History Medical History (Updated 01/26/20 @ 14:48 by ROBBY Chang) Abrasion Acute cervical sprain Breast cancer Cirrhosis of liver with ascites Contusion Diabetes mellitus Elbow sprain Esophageal varices without bleeding Hand sprain Hx of breast cancer Hx of hemorrhoids Hypercholesterolemia Hypertension Knee sprain 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 Osteoporosis Rheumatoid arthritis Sprain of wrist Thrombocytopenia Surgical History History of cholecystectomy (~2010) History of hemorrhoidectomy History of liver biopsy (~04/02/19) History of right mastectomy (~1985) Hx of colonoscopy Social History Social History Household Members: Children Alcohol intake: never Smoking Status: Never smoker Use of substances other than those prescribed or required for medical reasons: No Advance Directives: No Advance Directives Information Provided: No service: No Physical Exam Vital Signs: Vital Signs: Vital Signs Temp Pulse Resp BP Pulse Ox 01/26/20 15:10 71 16 132/71 100 01/26/20 12:58 98.3 F 64 18 123/72 01/26/20 10:28 58 16 123/61 98 01/26/20 09:48 98.8 F 64 18 100 Body Mass Index 30.2 Const: General: cooperative and healthy appearing Orientation/consciousness: oriented to person, oriented to place, oriented to time and patient oriented x3 Eyes: General: appearance normal, both eyes and all related structures Neck: Neck: Yes normal visual inspection and Yes full ROM Chest: Chest palpation & inspection: normal inspection of the chest and tenderness ( positive for right upper chest wall tenderness on palpation) Resp: Effort & Inspection: normal respiratory effort, able to speak in complete sentences, normal respiratory pattern, no audible wheezes and no cough Auscultation: clear to auscultation bilaterally Cardio: Jugular venous distension: no JVD Palpation: normal PMI Rhythm: regular rhythm Heart sounds: S1 normal heart sound present GI: Inspection: Yes normal to inspection, No abdominal wall ecchymosis, No Abdominal wall edema, No distended and No incision Palpation (GI): not firm, nontender, no guarding and not rigid Percussion: Yes normal to percussion Auscultation: normal bowel sounds : General: No CVA tenderness and Yes no CVA tenderness Back/Spine/Pelvis: Back: no CVA tenderness, No CVA tenderness, No ecchymosis and No back tenderness Skin: General skin exam: ecchymosis ( positive for ecchymosis of chest wall, right side of face, and jawline. ) Neuro: Other: motor, neuro, and vascular exam of all extremities are intact General: oriented to person, oriented to place, oriented to time, patient oriented x3, gait normal and CN's II-XI intact bilaterally Cranial nerves: Yes CN's II-XII intact bilaterally Extrem: General: Yes normal to inspection Psych: Appearance: grossly normal and well kempt Course Course Course Narrative: Patient to have basic labs including electrolytes such as magnesium and calcium to make sure does not cause of right upper extremity tremors. Patient will also have repeat head CT to make sure bleed has not worsened. Patient also have urine to rule out infection. Patient also have chest x-ray to make sure there is no rib fractures or pneumonia. Reevaluation(s) Reevaluation #1: Patient labs came back normal. Head CT shows improvement of brain bleed. Patient neuro exam is intact. Time: 14:35 Reevaluation #2: Spoke Dr. Faulkner of neurology for concerning of possible new partial seizure. he was informed of patient's history, physical exam, and diagnostics. He states probably patient might have partial seizure, but he recommend patient to be discharged and follow-up at his office for outpatient EEG. Presently he does not recommend any seizure medications. Time: 14:42 Medical Decision Making MDM Narrative Medical decision making narrative: possibly patient might have partial seizure, but as per neurology medication should not be started. Patient is safe for discharge. Patient labs are normal. Patient son Clair was informed of patient's history, physical exam, and diagnostics. He was informed of of the neurologists informing that his mother should follow up outpatient for EEG and presently no seizure meds indicated. Lab Data Result diagrams: 01/26/20 10:35 01/26/20 10:34 Labs: Lab Results 01/26/20 01/26/20 01/26/20 Range/Units 10:34 10:34 10:35 WBC 4.6 L (4.8-10.8) X10*3/uL RBC 3.91 L (4.20-5.50) X10*6/uL Hgb 10.9 L (12.0-16.0) g/dl Hct 33.9 L (37-47) % MCV 86.7 (80-98) fL MCH 27.9 (27.0-33.0) pg MCHC 32.2 (31.0-35.0) g/dl RDW 15.4 (11.0-16.0) % Plt Count 86 L D (160-400) X10*3/uL MPV 11.7 (9.4-12.3) fL Immature Gran % (Auto) 0.4 (0.0-0.4) % Neut % (Auto) 67.8 (45-73) % Lymph % (Auto) 21.3 (20-40) % [place] % (Auto) 9.7 (2-11) % Eos % (Auto) 0.4 (0-4) % Baso % (Auto) 0.4 (0-2) % Lymph # (Auto) 1.0 L (1.2-4.9) X10*3/uL [place] # (Auto) 0.5 (0.1-1.2) X10*3/uL Eos # (Auto) 0.0 (0.0-0.4) X10*3/uL Baso # (Auto) 0.0 (0.0-0.2) X10*3/uL Abs Immat Gran (auto) 0.02 (0.00-0.03) X10*3/uL Absolute Neuts (auto) 3.1 (2.0-8.3) X10*3/uL Absolute Nucleated RBC 0.000 (0.0-0.012) X10*3/uL Nucleated RBC % (auto) 0.0 (0.0-0.2) /100WBC Smear Tech's Comments VERIFIED PT 14.0 H (10.8-13.0) SEC INR 1.2 H (0.9-1.1) APTT 32.0 (24.1-38.0) SEC Sodium 141 (135-145) mmol/L Potassium 4.6 (3.3-5.1) mmol/l Chloride 108 (96-108) mmol/L Carbon Dioxide 24 (22-29) mmol/L Anion Gap 14 (12-20) BUN 28 H (9-16) mg/dL Creatinine 1.17 (0.5-1.4) mg/dL Estim Creat Clear Calc 21.9 Estimated GFR 44 Random Glucose 105 (60-115) mg/dL Calcium 8.8 (8.4-10.2) mg/dL Magnesium 2.0 (1.6-2.6) mg/dL Total Bilirubin 1.2 H (0.0-1.0) mg/dL AST 42 H (5-31) U/L ALT 42 H (0-31) U/L Alkaline Phosphatase 106 (39-117) U/L Total Protein 6.7 (6.5-8.0) g/dL Albumin 3.5 (3.5-5.0) g/dL Urine Color Urine Appearance Urine pH (5.0-8.0) Ur Specific [place] (1.005-1.025) Urine Protein (NEG-TRACE) MG/DL Urine Glucose (UA) (NEG) MG/DL Urine Ketones (NEG) MG/DL Urine Blood (NEG) Urine Nitrite (NEG) Ur Leukocyte Esterase (NEG) 01/26/20 Range/Units 11:05 WBC (4.8-10.8) X10*3/uL RBC (4.20-5.50) X10*6/uL Hgb (12.0-16.0) g/dl Hct (37-47) % MCV (80-98) fL MCH (27.0-33.0) pg MCHC (31.0-35.0) g/dl RDW (11.0-16.0) % Plt Count (160-400) X10*3/uL MPV (9.4-12.3) fL Immature Gran % (Auto) (0.0-0.4) % Neut % (Auto) (45-73) % Lymph % (Auto) (20-40) % [place] % (Auto) (2-11) % Eos % (Auto) (0-4) % Baso % (Auto) (0-2) % Lymph # (Auto) (1.2-4.9) X10*3/uL [place] # (Auto) (0.1-1.2) X10*3/uL Eos # (Auto) (0.0-0.4) X10*3/uL Baso # (Auto) (0.0-0.2) X10*3/uL Abs Immat Gran (auto) (0.00-0.03) X10*3/uL Absolute Neuts (auto) (2.0-8.3) X10*3/uL Absolute Nucleated RBC (0.0-0.012) X10*3/uL Nucleated RBC % (auto) (0.0-0.2) /100WBC Smear Tech's Comments PT (10.8-13.0) SEC INR (0.9-1.1) APTT (24.1-38.0) SEC Sodium (135-145) mmol/L Potassium (3.3-5.1) mmol/l Chloride (96-108) mmol/L Carbon Dioxide (22-29) mmol/L Anion Gap (12-20) BUN (9-16) mg/dL Creatinine (0.5-1.4) mg/dL Estim Creat Clear Calc Estimated GFR Random Glucose (60-115) mg/dL Calcium (8.4-10.2) mg/dL Magnesium (1.6-2.6) mg/dL Total Bilirubin (0.0-1.0) mg/dL AST (5-31) U/L ALT (0-31) U/L Alkaline Phosphatase (39-117) U/L Total Protein (6.5-8.0) g/dL Albumin (3.5-5.0) g/dL Urine Color YELLOW Urine Appearance CLEAR Urine pH 5.5 (5.0-8.0) Ur Specific [place] 1.015 (1.005-1.025) Urine Protein NEG (NEG-TRACE) MG/DL Urine Glucose (UA) NEG (NEG) MG/DL Urine Ketones NEG (NEG) MG/DL Urine Blood NEG (NEG) Urine Nitrite NEG (NEG) Ur Leukocyte Esterase NEG (NEG) Imaging Data CT scan - head: Attestation: I personally reviewed and interpreted this imaging study as follows: Radiologist's impression: FINDINGS: HEAD: Interval improvement compared to 01/21/2020 as manifest by significant decreased amount of hyperdense subarachnoid hemorrhage overlying the left frontal lobe. 1.7 x 1.3 x 1.4 cm focus of hyperdense intraparenchymal hemorrhage with surrounding vasogenic edema in the left frontal lobe is stable in size compared to 01/21/2020. No new sites of hemorrhage. No significant mass effect around the intraparenchymal hematoma. No midline shift or other herniation pattern. The ventricles have normal size and configuration; no hydrocephalus. The brainstem and cerebellar hemispheres are unremarkable. The cerebellar tonsils are in normal position. No evidence of calvarial fracture. Mucosal thickening of the partially visualized left maxillary sinus. No air-fluid levels within the visualized paranasal sinuses. Again noted is fluid/opacification of some of the right mastoid air cells. No mastoid fracture. No fracture or malalignment at either temporomandibular joint. Lenses are extracted from the globes of each orbit. CERVICAL SPINE: No acute abnormalities compared to 01/20/2020. The craniocervical junction is normal. The occipital condyles, dens and atlantodental articulation are intact. The vertebral body heights are normal. Again noted is discovertebral degenerative change and minimal retrolisthesis at C4-C5. Mild degenerative disc space narrowing at C6-C7. Multilevel facet osteoarthritis, worst on the right at C5-C6. Facet osteoarthritis at C7-T1 is associated with chronic, 0.2 cm subluxation of C7 on T1. No significant narrowing of the central spinal canal. No fractures in the anterior or posterior elements. No prevertebral soft tissue swelling. Thyroid gland is unremarkable. Again noted is linear opacity of scarring and traction bronchiectasis at right lung apex. No apical pneumothorax. IMPRESSION: * Interval improvement compared to 01/21/2020 as manifest by decreased amount of subarachnoid hemorrhage overlying the left frontal lobe. * A hyperdense intraparenchymal hematoma with surrounding vasogenic edema in the left frontal lobe is stable in size compared to 01/21/2020. No significant mass effect. No new sites of bleeding. * No fractures within the degenerated cervical spine. Chest x-ray: Attestation: I personally reviewed and interpreted this imaging study as follows: Radiologist's impression: FINDINGS: Lungs are well expanded and clear. No consolidation, pleural effusion or pneumothorax. Cardiac silhouette is normal in size. The descending thoracic aorta is tortuous. The hilar contours are normal. The visualized bones are intact. No rib fractures are identified on these standard 2 views of the chest. No pneumoperitoneum. IMPRESSION: No acute pulmonary disease. Discharge Plan Discharge Clinical Impression: Tremor of right hand, Partial seizure, Chest wall contusion Patient Disposition: Home, Self-Care Instructions: Contusion in Adults (ED), New-Onset Seizure in Adults (ED), Tremors (ED), Seizures After Traumatic Brain Injury (ED) Additional Instructions: return to the ED immediately for any altered mental status, for headache, dizziness, shaking of the whole body, urinary/ bowel incontinence, slurred speech, weakness, chest pain, shortness of breath, or any other concerning symptoms. Prescriptions: No Action oxycodone 5 mg tablet 5 mg PO BID RF: 0 lisinopril 5 mg tablet 5 mg PO DAILY RF: 0 ferrous sulfate 325 mg (65 mg iron) tablet 325 mg PO DAILY RF: 0 simvastatin 20 mg tablet 20 mg PO DAILY RF: 0 metformin 500 mg tablet 500 mg PO BID RF: 0 (DME) lancets 28 gauge misc See Rx Instructions ea Not Applicable DAILY Qty: 100 RF: 0 (DME) blood sugar diagnostic Strip See Rx Instructions ea Not Applicable DAILY Qty: 10 RF: 0 (DME) syringe with needle 1 mL 27 x 1/2 syringe See Rx Instructions ml subcut QWEEK Qty: 1 RF: 0 bumetanide 1 mg tablet 0.5 mg PO DAILY RF: 0 cholecalciferol (vitamin D3) [Vitamin D3] 50 mcg (2,000 unit) capsule 50 mcg PO DAILY RF: 0 Referrals: Julisa Faulkner MD [Physician] - 2 days ( right upper extremity tremors. Possible new onset partial seizure after traumatic brain injury that occurred a week ago) Interventions: ED Discharge Assessment Last Done: 01/26/20 15:04 Print Language: Sudanese
[2020-01-26 11:04] LABS: Alanine Aminotransferase 42 U/L (0-31); Albumin Level 3.5 g/dL (3.5-5.0); Alkaline Phosphatase 106 U/L (39-117); Anion Gap 14 (12-20); Aspartate Amino Transferase 42 U/L (5-31); Bilirubin Total 1.2 mg/dL (0.0-1.0); Blood Urea Nitrogen 28 mg/dL (9-16); Calcium 8.8 mg/dL (8.4-10.2); Carbon Dioxide 24 mmol/L (22-29); Chloride 108 mmol/L (96-108); Creatinine Clr Calc Pharmacy 21.9; Estimated Glomerular Filt Rate 44; Glucose Random 105 mg/dL (60-115); Potassium 4.6 mmol/l (3.3-5.1); Sodium 141 mmol/L (135-145); Total Protein 6.7 g/dL (6.5-8.0)
[2020-01-26 11:13] LABS: Glucose Urine UA NEG (NEG); Leukocyte Esterase Urine NEG (NEG); Nitrite Urine NEG (NEG); PH 5.5 (5.0-8.0); Specific Gravity - Urine 1.015 (1.005-1.025); Urine Blood NEG (NEG); Urine Ketones NEG (NEG); Urine Protein NEG (NEG-TRACE)
[2020-01-26 11:15] LABS: Appearance Urine CLEAR; Color Urine YELLOW
--- NOTE | 2020-01-26 12:47 | PC.NURSE ---
pt ambulated with steady gait to the bathroom
[2020-01-26 12:58] VITALS: BP 123/72; PULSE 64; RESP 18; TEMP 36.8
[2020-01-26 15:10] VITALS: BP 132/71; PULSE 71; RESP 16; O2SAT 100
== END 2020-01-26 15:15 | disposition home or self-care (01) ==
PROVIDERS: Physician Assistant; Emergency Provider Emergency Medicine
DX: S20.219A Contusion of unspecified front wall of thorax, initial encounter (principal); G40.109 Localization-related (focal) (partial) symptomatic epilepsy and epileptic syndromes with simple partial seizures, not intractable, without status epilepticus; R25.1 Tremor, unspecified; X58.XXXA Exposure to other specified factors, initial encounter; Y93.9 Activity, unspecified; Y92.9 Unspecified place or not applicable; Y99.9 Unspecified external cause status; Z79.899 Other long term (current) drug therapy
CPT/HCPCS: 36415; 70450; 71046; 72125; 80053; 81003; 83735; 85025; 85610; 85730; 99284

== ENCOUNTER 2020-01-27 22:46 | Inpatient (IN) | payer MEDICARE, MEDICAID, SELFPAY ==
[2020-01-27 22:52] VITALS: BP 136/86; BP 137/86; PULSE 65; PULSE 69; RESP 20; TEMP 36.9; O2SAT 99; BMI 22.6
--- NOTE | 2020-01-27 23:02 | CT_ITS ---
EXAMINATION: CT HEAD WITHOUT CONTRAST (STROKE PROTOCOL) CLINICAL INFORMATION: Stroke protocol. Slurred speech for 3 hours COMPARISON: None TECHNIQUE: Contiguous axial imaging was performed from the skull base to vertex without intravenous administration of contrast. This CT examination was performed using dose optimization techniques as appropriate, variously including the following: *Automated exposure control *Adjustment of mA and/or kV according to patient size (this includes techniques or standardized protocols for targeted exams where dose is matched to indication/reason for exam; i.e. extremities or head) *Use of iterative reconstruction technique DLP: 627 mGy-cm FINDINGS: There is a region of hyperattenuation consistent with acute intraparenchymal hemorrhage in the left frontal lobe measuring up to approximately 2.8 cm in diameter. There is a thin rim of surrounding edema, without significant mass effect or midline shift. No acute territorial infarct identified. No extra-axial collection is seen. The ventricles are normal in size without hydrocephalus. The yin-white matter differentiation appears symmetric. The calvarium appears intact. There is no pneumocephalus or orbital emphysema. The visualized sinuses and middle ears and mastoid air cells show no significant mucosal thickening. There are no air-fluid levels. IMPRESSION: Region of acute intraparenchymal hemorrhage in the left frontal lobe measuring up to approximately 2.8 cm, with a thin rim of surrounding edema. Underlying mass may be present, and this would be better assessed with MRI. This critical result was discussed with Dr. Easley on 01/27/2020 11:19 PM, and it was ascertained that the content and urgency of the report was understood at the time of direct communication.
--- NOTE | 2020-01-27 23:02 | PC.NURSE ---
Assessment during triage. Pt has deep bruising at neck, right side of face, left wrist, right shoulder. states she tripped and fell 1 month ago. pt is unsure if she's on thinners speech is clear. no unilat neuro deficits noted during triage.
--- NOTE | 2020-01-27 23:13 | ECG_ITS ---
Test Reason : WEAKNESS Blood Pressure : / mmHG Vent. Rate : 063 BPM Atrial Rate : 063 BPM P-R Int : 130 ms QRS Dur : 076 ms QT Int : 442 ms P-R-T Axes : 046 064 124 degrees QTc Int : 452 ms Normal sinus rhythm ST & T wave abnormality, consider anterolateral ischemia Abnormal ECG When compared with ECG of 25-FEB-2019 10:11, T wave inversion less evident in Lateral leads Referred By: Mariah Capellan Electronically Signed By:PHIL CERDA MD
[2020-01-27 23:26] LABS: Prothrombin Time Whole Bld POC 13.5 sec (11.1-13.5); ~PT, ~INR - Anti Coag Clinic 1.1 (0.9-1.1)
[2020-01-27 23:26] LABS: Glucose, Whole Blood 98 mg/dL (60-115)
[2020-01-27 23:29] LABS: MANUAL DIFF FLAG NO
[2020-01-27 23:30] LABS: Basophils Percent Auto 0.3 % (0-2); Eosinophils Absolute Auto 0.1 X10*3/uL (0.0-0.4); Hematocrit 34.5 % (37-47); Imm Gran Abs Auto 0.02 X10*3/uL (0.00-0.03); Imm Gran Pct Auto 0.3 % (0.0-0.4); Lymphocytes Absolute Auto 1.2 X10*3/uL (1.2-4.9); Lymphocytes Percent Auto 20.4 % (20-40); Mean Corpuscular HGB Conc 31.9 g/dl (31.0-35.0); Mean Corpuscular Hemoglobin 27.6 pg (27.0-33.0); Mean Corpuscular Volume 86.7 fL (80-98); Mean Platelet Volume 12.4 fL (9.4-12.3); Monocytes Absolute Auto 0.6 X10*3/uL (0.1-1.2); Monocytes Percent Auto 10.2 % (2-11); Neutrophils Percent Auto 67.8 % (45-73); Platelet Count 111 X10*3/uL (160-400); Red Blood Count 3.98 X10*6/uL (4.20-5.50); Red Cell Distribution Width 15.1 % (11.0-16.0)
[2020-01-27 23:35] LABS: INTERNATIONAL NORM RATIO 1.1 (0.9-1.1); Prothrombin Time 13.6 SEC (10.8-13.0)
[2020-01-27 23:57] LABS: Anion Gap 16 (12-20); Blood Urea Nitrogen 29 mg/dL (9-16); Calcium 8.7 mg/dL (8.4-10.2); Carbon Dioxide 24 mmol/L (22-29); Chloride 104 mmol/L (96-108); Creatinine Clr Calc Pharmacy 33.2; Estimated Glomerular Filt Rate 49; Glucose Random 106 mg/dL (60-115); Potassium 4.5 mmol/l (3.3-5.1); Sodium 139 mmol/L (135-145)
[2020-01-28] VITALS (13 sets, daily range): BP systolic 109–146; BP diastolic 54–74; PULSE 52–64; RESP 12–20; TEMP 35.9–37; O2SAT 96–100
--- NOTE | 2020-01-28 | MR_ITS ---
EXAMINATION: MR BRAIN WITHOUT AND WITH CONTRAST CLINICAL INFORMATION: Transient ischemic attack. Subarachnoid hemorrhage. COMPARISON: CT head from 01/27/2020 and 01/26/2020. CTA head from 01/20/2020. TECHNIQUE: MRI of the brain was obtained using routine sequences without and with contrast following the administration of 6 mL of Gadavist intravenous contrast. FINDINGS: There is inherently T1 shortening an susceptibility artifact associated with a 1.7 cm region of intraparenchymal hemorrhagic products in the high left frontal lobe. Similarly, there is a small volume of subarachnoid hemorrhagic products largely demonstrated along the left frontal lobe but also to a lesser extent along the left occipitotemporal lobes. Small left hemispheric subdural hematoma along the left occipital parietal lobes, measuring up to 0.2 cm in depth. Associated mild smooth left hemispheric pachymeningeal thickening/enhancement. No definitively demonstrated masslike enhancement. No focal restricted diffusion is demonstrated to suggest acute or subacute cerebral ischemia. Mild vasogenic edema surrounding the intraparenchymal hemorrhagic products in the left frontal lobe. Otherwise, scattered periventricular and deep white matter T2 FLAIR hyperintensities consistent with mild underlying microangiopathy. The ventricles are normal in morphology and size. No transtentorial/uncal herniation. No midline shift. Normal appearance of the pituitary gland. No abnormalities of the posterior fossa with normal appearance of the brainstem and cerebellum. Normal arterial and venous vascular flow voids are present. No abnormal contrast enhancement. Normal, homogeneous marrow signal. The previously demonstrated soft tissue edema along the right hemimandible has largely resolved. Bilateral lens extractions. Moderate mucosal thickening of the paranasal sinuses. Moderate right-sided mastoid effusion. No signal abnormalities within the left-sided mastoid. IMPRESSION: Redemonstrated left frontal lobe intraparenchymal hemorrhage, small volume subarachnoid hemorrhage, and small volume left hemispheric subdural hematoma. Inherent T1 shortening of the intraparenchymal hemorrhagic products partially limits evaluation; however, there is no demonstrated evidence of masslike enhancement in this region to strongly suggest an underlying lesion. No additional abnormal intracranial enhancement.
--- NOTE | 2020-01-28 00:03 | ED.NEUROSD ---
HPI - Neuro Symptoms/Deficit General Chief Complaint: Weakness Stated Complaint: SLURRED SPEECH Time Seen by Provider: 01/27/20 23:01 Source: patient, family ( son son) and EMS Mode of arrival: EMS Limitations: language barrier History of Present Illness HPI Narrative: patient comes to the emergency room complaining of slurry speech and weakness in her right upper extremity. Patient states that this moment she has full strength in her extremities, and her speech is much better than earlier today. I spoke with the patient's son, patient was seen here on December 20 for a fall, she was diagnosed with a subarachnoid hemorrhage, she was in the hospital for 3 days and then discharged home. Yesterday, patient was brought back to the emergency room because she was having trouble brushing her hair, had weakness in her right hand her right leg and had trouble walking, symptoms resolved patient was discharged home. Today Around 20:00, patient had the same symptoms in yesterday. Patient states she feels well, denies headache, no shortness of breath no chest pain, states her speech feels a bit heavy but is much better than earlier today. Onset (ago): hour(s) Time: 20:00 Last Observed Normal: 20:00 Timing confirmed by: family member Location: other ( slurry speech) History of same: Yes Severity: moderate Quality: weak and intermittent On Anticoagulants: No Associated symptoms: denies other symptoms Treatments Prior to Arrival: none Related Data Home Medications Medication Instructions Recorded Confirmed cholecalciferol (vitamin D3) 50 50 mcg PO DAILY 01/15/20 01/28/20 mcg (2,000 unit) capsule ferrous sulfate 325 mg (65 mg 325 mg PO DAILY 01/15/20 01/28/20 iron) tablet lisinopril 5 mg tablet 5 mg PO DAILY 01/15/20 01/28/20 metformin 500 mg tablet 500 mg PO BID 01/15/20 01/28/20 oxycodone 5 mg tablet 5 mg PO BID 01/15/20 01/28/20 simvastatin 20 mg tablet 20 mg PO DAILY 01/15/20 01/28/20 alendronate 35 mg PO QWEEK 01/28/20 01/28/20 [id number]-[id number] 1 tab PO Q6H PRN 01/28/20 01/28/20 folic acid 1 mg PO DAILY 01/28/20 01/28/20 Allergies Allergy/AdvReac Type Severity Reaction Status Date / Time No Known Allergies Allergy Verified 01/28/20 00:35 Review of Systems Review of Systems: Constitutional: No Weight loss, No Fever, No Chills, No Night Sweats, No Fatigue, No Malaise ENT/Mouth: No Hearing loss, No Ear Pain, No Nasal Congestion, No Sinus Pain, No Hoarseness, No sore throat, No Rhinorrhea, No Swallowing Difficulty Eyes: No Eye Pain, No Swelling, No Redness, No Foreign Body, No Discharge, No Vision Changes Cardiovascular: No Chest Pain, No SOB, No Dyspnea on Exertion, No Orthopnea, No Edema, No Palpitations Respiratory: No Cough, No Sputum, No Wheezing, No Smoke Exposure, No Dyspnea Gastrointestinal: No Nausea, No Vomiting, No Diarrhea, No Constipation, No abdominal Pain, No Hematochezia, No Melena Genitourinary: no irregular bleeding, No Dysuria, No Urinary Frequency, No Hematuria, No Urinary Incontinence, No Urgency, No Flank Pain, No Urinary Flow Changes, No Hesitancy Musculoskeletal: No joint pain, No Myalgias, No Joint Swelling Skin: No Skin Lesions, No rash Neuro: early today weakness in right upper extremity and slurry speech which has improved,No Paresthesias, No Loss of Consciousness, No Dizziness, No Headache Psych: No Anxiety/Panic, No Depression, No SI/HI/AH/VH, No Social Issues, Heme/Lymph: No Bruising, No Bleeding,No Lymphadenopathy Endocrine: No Polyuria, No Polydipsia, No Temperature Intolerance PMFSH Past Medical History Medical History Abrasion Acute cervical sprain Breast cancer Cirrhosis of liver with ascites Contusion Diabetes mellitus Elbow sprain Esophageal varices without bleeding Hand sprain Hx of breast cancer Hx of hemorrhoids Hypercholesterolemia Hypertension Knee sprain 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 Osteoporosis Rheumatoid arthritis Sprain of wrist Thrombocytopenia Surgical History History of cholecystectomy (~2010) History of hemorrhoidectomy History of liver biopsy (~04/02/19) History of right mastectomy (~1985) Hx of colonoscopy Social History Social History Household Members: Children Alcohol intake: never Smoking Status: Never smoker Use of substances other than those prescribed or required for medical reasons: No Advance Directives: No Advance Directives Information Provided: No service: No Physical Exam Vital Signs: Vital Signs: Vital Signs Temp Pulse Resp BP Pulse Ox 01/28/20 00:00 98.6 F 64 16 133/61 99 01/27/20 22:52 98.4 F 69 20 137/86 99 Body Mass Index 22.6 Appearance: Alert. Oriented X3. No acute distress. Eyes: Pupils equal, round and reactive to light. ENT: Pharynx normal. Neck: Normal inspection. Neck supple. No lymph nodes noted. No crepitus CVS: Normal heart rate and rhythm. Pulses normal. Normal S1 and S2 Respiratory: No respiratory distress. Breath sounds normal. No Wheezing. No rales Abdomen: Soft and nontender. No rigidity. No distention. good BS x4 Skin: Skin warm and dry. patient has multiple ecchymoses in face, neck, chest, right upper extremity, consistent with a fall from approximately 1 week Extremities: No lower extremity edema. No lower extremity edema. No Lacerations. No Rash Neuro: Oriented X 3. patient speaking in full sentences, no slurred speech noted, however patient states it is slurred, NIH score of 1 for mild slurry speech. Course Reevaluation(s) Reevaluation #1: patient remains stable, no changes since patient arrived, patient able to speak in full sentences, states her speech is improved since she got to the emergency room re-evaluation #2 Done at 01:19. Patient states she feels much better, states her strength is within normal limits, her speech returned to normal. Patient was asked to walk without a walker as she does at home, patient was able to do so at baseline. Time: 00:15 MDM - Neuro Symptoms/Deficit MDM Narrative Medical decision making narrative: Patient's CT scan did not show any new changes, the subarachnoid hemorrhage is stable. Patient's symptoms resolved. However, this is the 2nd day in a row that patient has intermittent TIA like symptoms. Patient will be admitted. Discussed the above-mentioned with the patient's son Differential Diagnosis Differential diagnosis: Likely subarachnoid hemorrhage, cerebrovascular accident and transient cerebral ischemia Medical Records Attestation: I reviewed the patient's medical records. Lab Data Attestation: I reviewed the patient's lab results. Result diagrams: 01/27/20 23:24 01/27/20 23:24 Labs: Lab Results 01/27/20 01/27/20 01/27/20 Range/Units 23:22 23:23 23:24 WBC 6.0 (4.8-10.8) X10*3/uL RBC 3.98 L (4.20-5.50) X10*6/uL Hgb 11.0 L (12.0-16.0) g/dl Hct 34.5 L (37-47) % MCV 86.7 (80-98) fL MCH 27.6 (27.0-33.0) pg MCHC 31.9 (31.0-35.0) g/dl RDW 15.1 (11.0-16.0) % Plt Count 111 L (160-400) X10*3/uL MPV 12.4 H (9.4-12.3) fL Immature Gran % (Auto) 0.3 (0.0-0.4) % Neut % (Auto) 67.8 (45-73) % Lymph % (Auto) 20.4 (20-40) % [place] % (Auto) 10.2 (2-11) % Eos % (Auto) 1.0 (0-4) % Baso % (Auto) 0.3 (0-2) % Lymph # (Auto) 1.2 (1.2-4.9) X10*3/uL [place] # (Auto) 0.6 (0.1-1.2) X10*3/uL Eos # (Auto) 0.1 (0.0-0.4) X10*3/uL Baso # (Auto) 0.0 (0.0-0.2) X10*3/uL Abs Immat Gran (auto) 0.02 (0.00-0.03) X10*3/uL Absolute Neuts (auto) 4.0 (2.0-8.3) X10*3/uL Absolute Nucleated RBC 0.000 (0.0-0.012) X10*3/uL Nucleated RBC % (auto) 0.0 (0.0-0.2) /100WBC PT (10.8-13.0) SEC Whole Blood PT 13.5 (11.1-13.5) sec INR (0.9-1.1) Whole Blood INR 1.1 (0.9-1.1) Sodium (135-145) mmol/L Potassium (3.3-5.1) mmol/l Chloride (96-108) mmol/L Carbon Dioxide (22-29) mmol/L Anion Gap (12-20) BUN (9-16) mg/dL Creatinine (0.5-1.4) mg/dL Estim Creat Clear Calc Estimated GFR POC Glucose 98 (60-115) mg/dL Random Glucose (60-115) mg/dL Calcium (8.4-10.2) mg/dL Urine Color Urine Appearance Urine pH (5.0-8.0) Ur Specific [place] (1.005-1.025) Urine Protein (NEG-TRACE) MG/DL Urine Glucose (UA) (NEG) MG/DL Urine Ketones (NEG) MG/DL Urine Blood (NEG) Urine Nitrite (NEG) Ur Leukocyte Esterase (NEG) Urine RBC (0) /HPF Urine WBC (0-4) /HPF Ur Squamous Epith Cells /LPF Urine Bacteria /LPF Urine Mucus /LPF 01/27/20 01/27/20 01/28/20 Range/Units 23:24 23:24 00:30 WBC (4.8-10.8) X10*3/uL RBC (4.20-5.50) X10*6/uL Hgb (12.0-16.0) g/dl Hct (37-47) % MCV (80-98) fL MCH (27.0-33.0) pg MCHC (31.0-35.0) g/dl RDW (11.0-16.0) % Plt Count (160-400) X10*3/uL MPV (9.4-12.3) fL Immature Gran % (Auto) (0.0-0.4) % Neut % (Auto) (45-73) % Lymph % (Auto) (20-40) % [place] % (Auto) (2-11) % Eos % (Auto) (0-4) % Baso % (Auto) (0-2) % Lymph # (Auto) (1.2-4.9) X10*3/uL [place] # (Auto) (0.1-1.2) X10*3/uL Eos # (Auto) (0.0-0.4) X10*3/uL Baso # (Auto) (0.0-0.2) X10*3/uL Abs Immat Gran (auto) (0.00-0.03) X10*3/uL Absolute Neuts (auto) (2.0-8.3) X10*3/uL Absolute Nucleated RBC (0.0-0.012) X10*3/uL Nucleated RBC % (auto) (0.0-0.2) /100WBC PT 13.6 H (10.8-13.0) SEC Whole Blood PT (11.1-13.5) sec INR 1.1 (0.9-1.1) Whole Blood INR (0.9-1.1) Sodium 139 (135-145) mmol/L Potassium 4.5 (3.3-5.1) mmol/l Chloride 104 (96-108) mmol/L Carbon Dioxide 24 (22-29) mmol/L Anion Gap 16 (12-20) BUN 29 H (9-16) mg/dL Creatinine 1.07 (0.5-1.4) mg/dL Estim Creat Clear Calc 33.2 Estimated GFR 49 POC Glucose (60-115) mg/dL Random Glucose 106 (60-115) mg/dL Calcium 8.7 (8.4-10.2) mg/dL Urine Color YELLOW Urine Appearance CLEAR Urine pH 5.5 (5.0-8.0) Ur Specific [place] 1.010 (1.005-1.025) Urine Protein NEG (NEG-TRACE) MG/DL Urine Glucose (UA) NEG (NEG) MG/DL Urine Ketones NEG (NEG) MG/DL Urine Blood NEG (NEG) Urine Nitrite NEG (NEG) Ur Leukocyte Esterase 1+ H (NEG) Urine RBC 0 (0) /HPF Urine WBC 1-4 (0-4) /HPF Ur Squamous Epith Cells 2+ /LPF Urine Bacteria NONE /LPF Urine Mucus 1+ /LPF ECG Data Attestation: I personally reviewed and interpreted this ECG as follows: ( heart rate 63, QTC 452, sinus rhythm, old T-wave inversions V2 through V6, no EKG changes since February 2019) ECG interpretation date: 01/28/20 ECG interpretation time: 00:28 Prior ECG tracings: available for review Ischemic changes: non-specific ST-T wave changes and t wave inversions NIH Stroke Scale Internal: Initial- Upon Arrival Level of Consciousness: Alert Level of Consciousness Questions: Answers both questions correctly Level of Consciousness Commands: Performs both tasks correctly Best Gaze: Normal Visual: No visual loss Facial Palsy: Normal Motor Arm (Right): No drift Motor Arm (Left): No drift Motor Leg (Right): No drift Motor Leg (Left): No drift Limb Ataxia: Absent Sensory: Normal Dysarthia: Mild to moderate dysarthria Extinction and Inattention: No abnormality Discharge Plan Discharge Clinical Impression: SAH (subarachnoid hemorrhage), Brain TIA Patient Disposition: Admitted As Inpatient Prescriptions: No Action folic acid 1 mg tablet 1 mg PO DAILY RF: 0 wrlhidalgs-ndnnouvmzhtxq-cybh 50-325-40 mg tablet 1 tab PO Q6H PRN (Reason: Headache) RF: 0 alendronate 35 mg tablet 35 mg PO QWEEK RF: 0 oxycodone 5 mg tablet 5 mg PO BID RF: 0 lisinopril 5 mg tablet 5 mg PO DAILY RF: 0 ferrous sulfate 325 mg (65 mg iron) tablet 325 mg PO DAILY RF: 0 simvastatin 20 mg tablet 20 mg PO DAILY RF: 0 metformin 500 mg tablet 500 mg PO BID RF: 0 cholecalciferol (vitamin D3) [Vitamin D3] 50 mcg (2,000 unit) capsule 50 mcg PO DAILY RF: 0
[2020-01-28 00:40] LABS: Glucose Urine UA NEG (NEG); Leukocyte Esterase Urine 1+ (NEG); Nitrite Urine NEG (NEG); PH 5.5 (5.0-8.0); Urine Blood NEG (NEG); Urine Ketones NEG (NEG); Urine Protein NEG (NEG-TRACE)
[2020-01-28 00:46] LABS: Appearance Urine CLEAR; Color Urine YELLOW
[2020-01-28 00:58] LABS: Mucus Urine 1+ /LPF; RBC Urine 0 /HPF (0); Squamous Epithelial Cell Urine 2+ /LPF
[2020-01-28 03:35] LABS: Glucose, Whole Blood 87 mg/dL (60-115)
--- NOTE | 2020-01-28 03:44 | PM.IMHP ---
History of Present Illness Date of Service: 01/28/20 Chief Complaint: right sided weakness, numbness and slurred speech This is a Korean-speaking 84-year-old female with extensive past medical history who presents to the hospital with complaints of right upper extremity numbness and tingling in lower extremity weakness as well as slurred speech. Of note patient developed a subarachnoid hemorrhage following a mechanical fall on December 30. at that time no intervention was recommended, she also presented to the hospital on and with complaints of right upper extremity tremors, thought to possibly secondary to seizures, after consultation within the and she patient was sent home. She returns today stating that her right upper extremity is numb and tingling. her son also noted that she had difficulty ambulating with her walker. But had no fall. She otherwise denies any change in her vision, no blurred or double vision, no headache, and by the time she arrived to the ED patient was back to her baseline. She has no chest pain, shortness of breath, abdominal pain, nausea vomiting no diarrhea constipation, no urinary symptoms and no lower extremity edema on arrival to the ED patient hemodynamically stable with no significant abnormal vitals labs with no significant abnormality CT of the head shows region of acute intraparenchymal hemorrhage in the left frontal lobe measuring up to approximately 2.8 cm with a thin rim of surrounding edema patient will be admitted for TIA workup Review of Systems Review of Systems: Yes all other systems are reviewed and are negative [facility] Medical History Abrasion Acute cervical sprain Breast cancer Cirrhosis of liver with ascites Contusion Diabetes mellitus Elbow sprain Esophageal varices without bleeding Hand sprain Hx of breast cancer Hx of hemorrhoids Hypercholesterolemia Hypertension Knee sprain 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 Osteoporosis Rheumatoid arthritis Sprain of wrist Thrombocytopenia Surgical History History of cholecystectomy (~2010) History of hemorrhoidectomy History of liver biopsy (~04/02/19) History of right mastectomy (~1985) Hx of colonoscopy Social History Household Members: Children Alcohol intake: never Smoking Status: Never smoker Use of substances other than those prescribed or required for medical reasons: No Currently Displaying Signs/Symptoms of Drug Intoxication Withdrawal: No Advance Directives: No Advance Directives Information Provided: No Do you have thoughts of harming others: None service: No Meds Allergies Allergy/AdvReac Type Severity Reaction Status Date / Time No Known Allergies Allergy Verified 01/28/20 00:35 Home Medications Medication Instructions Recorded Confirmed Type cholecalciferol (vitamin D3) 50 50 mcg PO DAILY 01/15/20 01/28/20 History mcg (2,000 unit) capsule ferrous sulfate 325 mg (65 mg 325 mg PO DAILY 01/15/20 01/28/20 History iron) tablet lisinopril 5 mg tablet 5 mg PO DAILY 01/15/20 01/28/20 History metformin 500 mg tablet 500 mg PO BID 01/15/20 01/28/20 History oxycodone 5 mg tablet 5 mg PO BID 01/15/20 01/28/20 History simvastatin 20 mg tablet 20 mg PO DAILY 01/15/20 01/28/20 History alendronate 35 mg PO QWEEK 01/28/20 01/28/20 History petjmlszlv-oshuvcimjutrs-ewgj 1 tab PO Q6H PRN 01/28/20 01/28/20 History folic acid 1 mg PO DAILY 01/28/20 01/28/20 History Physical Exam Vital Signs and Narrative: Vital Signs: Last Vital Signs Temp 97.4 F 01/28/20 03:33 Pulse 64 01/28/20 03:33 Resp 16 01/28/20 03:33 BP 146/68 H 01/28/20 03:33 Pulse Ox 99 01/28/20 03:33 Body Mass Index 22.6 Appearance: Alert. Oriented X3. No acute distress. Eyes: Pupils equal, round and reactive to light. ENT: Pharynx normal. Neck: Normal inspection. Neck supple. No lymph nodes noted. No crepitus CVS: Normal heart rate and rhythm. Pulses normal. Normal S1 and S2 Respiratory: No respiratory distress. Breath sounds normal. No Wheezing. No rales Abdomen: Soft and nontender. No rigidity. No distention. good BS x4 Skin: Skin warm and dry. patient has multiple ecchymoses in face, neck, chest, right upper extremity, consistent with a fall from approximately 1 week Extremities: No lower extremity edema. No lower extremity edema. No Lacerations. No Rash Neuro: Oriented X 3. patient speaking in full sentences, no slurred speech noted Results Labs Labs: Laboratory Tests 01/27/20 01/27/20 01/27/20 23:22 23:23 23:24 WBC 6.0 RBC 3.98 L Hgb 11.0 L Hct 34.5 L MCV 86.7 MCH 27.6 MCHC 31.9 RDW 15.1 Plt Count 111 L MPV 12.4 H Immature Gran % (Auto) 0.3 Neut % (Auto) 67.8 Lymph % (Auto) 20.4 [place] % (Auto) 10.2 Eos % (Auto) 1.0 Baso % (Auto) 0.3 Lymph # (Auto) 1.2 [place] # (Auto) 0.6 Eos # (Auto) 0.1 Baso # (Auto) 0.0 Abs Immat Gran (auto) 0.02 Absolute Neuts (auto) 4.0 Absolute Nucleated RBC 0.000 Nucleated RBC % (auto) 0.0 PT Whole Blood PT 13.5 INR Whole Blood INR 1.1 Sodium Potassium Chloride Carbon Dioxide Anion Gap BUN Creatinine Estim Creat Clear Calc Estimated GFR POC Glucose 98 Random Glucose Calcium Urine Color Urine Appearance Urine pH Ur Specific [place] Urine Protein Urine Glucose (UA) Urine Ketones Urine Blood Urine Nitrite Ur Leukocyte Esterase Urine RBC Urine WBC Ur Squamous Epith Cells Urine Bacteria Urine Mucus 01/27/20 01/27/20 01/28/20 23:24 23:24 00:30 WBC RBC Hgb Hct MCV MCH MCHC RDW Plt Count MPV Immature Gran % (Auto) Neut % (Auto) Lymph % (Auto) [place] % (Auto) Eos % (Auto) Baso % (Auto) Lymph # (Auto) [place] # (Auto) Eos # (Auto) Baso # (Auto) Abs Immat Gran (auto) Absolute Neuts (auto) Absolute Nucleated RBC Nucleated RBC % (auto) PT 13.6 H Whole Blood PT INR 1.1 Whole Blood INR Sodium 139 Potassium 4.5 Chloride 104 Carbon Dioxide 24 Anion Gap 16 BUN 29 H Creatinine 1.07 Estim Creat Clear Calc 33.2 Estimated GFR 49 POC Glucose Random Glucose 106 Calcium 8.7 Urine Color YELLOW Urine Appearance CLEAR Urine pH 5.5 Ur Specific [place] 1.010 Urine Protein NEG Urine Glucose (UA) NEG Urine Ketones NEG Urine Blood NEG Urine Nitrite NEG Ur Leukocyte Esterase 1+ H Urine RBC 0 Urine WBC 1-4 Ur Squamous Epith Cells 2+ Urine Bacteria NONE Urine Mucus 1+ 01/28/20 03:31 WBC RBC Hgb Hct MCV MCH MCHC RDW Plt Count MPV Immature Gran % (Auto) Neut % (Auto) Lymph % (Auto) [place] % (Auto) Eos % (Auto) Baso % (Auto) Lymph # (Auto) [place] # (Auto) Eos # (Auto) Baso # (Auto) Abs Immat Gran (auto) Absolute Neuts (auto) Absolute Nucleated RBC Nucleated RBC % (auto) PT Whole Blood PT INR Whole Blood INR Sodium Potassium Chloride Carbon Dioxide Anion Gap BUN Creatinine Estim Creat Clear Calc Estimated GFR POC Glucose 87 Random Glucose Calcium Urine Color Urine Appearance Urine pH Ur Specific [place] Urine Protein Urine Glucose (UA) Urine Ketones Urine Blood Urine Nitrite Ur Leukocyte Esterase Urine RBC Urine WBC Ur Squamous Epith Cells Urine Bacteria Urine Mucus Imaging CT scan - head: Radiologist's impression: Region of acute intraparenchymal hemorrhage in the left frontal lobe measuring up to approximately 2.8 cm, with a thin rim of surrounding edema. Underlying mass may be present, and this would be better assessed with MRI. This critical result was discussed with Dr. Easley on 01/27/2020 11:19 PM, and it was ascertained that the content and urgency of the report was understood at the time of direct communication. Assessment and Plan (1) Brain TIA: Status: Acute (2) SAH (subarachnoid hemorrhage): Status: Acute (3) Cirrhosis of liver with ascites: Qualifiers: Hepatic cirrhosis type: unspecified hepatic cirrhosis Qualified Code(s): K74.60 - Unspecified cirrhosis of liver; R18.8 - Other ascites Status: Acute (4) Esophageal varices without bleeding: Status: Acute (5) Thrombocytopenia: Status: Acute this is a an 84-year-old female with past medical history of SAH who presents to the hospital with TIA like symptoms # TIA - right-sided weakness numbness and slurred speech noted by her family as well - patient with recent subarachnoid hemorrhage, CT is showing acute subarachnoid hemorrhage with surrounding edema similar in size to previous CT images plan: - MRI of the brain - echocardiogram - consult neurology # subarachnoid hemorrhage - CT images as above - neurology consult - MRI # hypertension - stable - continue lisinopril and Bumex # diabetes - low-dose sliding scale is - diabetic diet # hyperlipidemia - continue high-dose statin # chronic anemia DVT prophylaxis: SCDs date of service 01/28/2020
[2020-01-28 05:50] LABS: MANUAL DIFF FLAG NO
[2020-01-28 05:57] LABS: Basophils Percent Auto 0.5 % (0-2); Eosinophils Absolute Auto 0.1 X10*3/uL (0.0-0.4); Eosinophils Percent Auto 1.2 % (0-4); Hematocrit 31.8 % (37-47); Imm Gran Abs Auto 0.01 X10*3/uL (0.00-0.03); Imm Gran Pct Auto 0.2 % (0.0-0.4); Lymphocytes Absolute Auto 0.9 X10*3/uL (1.2-4.9); Lymphocytes Percent Auto 21.7 % (20-40); Mean Corpuscular HGB Conc 31.4 g/dl (31.0-35.0); Mean Corpuscular Hemoglobin 27.6 pg (27.0-33.0); Mean Corpuscular Volume 87.8 fL (80-98); Mean Platelet Volume 12.3 fL (9.4-12.3); Monocytes Absolute Auto 0.4 X10*3/uL (0.1-1.2); Monocytes Percent Auto 9.7 % (2-11); Neutrophils Absolute Auto 2.7 X10*3/uL (2.0-8.3); Neutrophils Percent Auto 66.7 % (45-73); Platelet Count 103 X10*3/uL (160-400); Red Blood Count 3.62 X10*6/uL (4.20-5.50); Red Cell Distribution Width 15.4 % (11.0-16.0); White Blood Count 4.1 X10*3/uL (4.8-10.8)
[2020-01-28 06:34] LABS: Anion Gap 12 (12-20); Blood Urea Nitrogen 26 mg/dL (9-16); Calcium 8.3 mg/dL (8.4-10.2); Carbon Dioxide 26 mmol/L (22-29); Chloride 105 mmol/L (96-108); Creatinine Clr Calc Pharmacy 30.9; Estimated Glomerular Filt Rate 45; Glucose Random 188 mg/dL (60-115); Potassium 3.7 mmol/l (3.3-5.1); Sodium 139 mmol/L (135-145)
[2020-01-28 07:30] LABS: Glucose, Whole Blood 76 mg/dL (60-115)
[2020-01-28 09:48] LABS: INTERNATIONAL NORM RATIO 1.1 (0.9-1.1); Prothrombin Time 13.6 SEC (10.8-13.0)
[2020-01-28] MEDS: Cholecalciferol (Vitamin D3) 25 MCG TABLET 50 MCG PO (09:52)
[2020-01-28] MEDS: lisinopriL 5 MG TABLET PO (09:52)
[2020-01-28] MEDS: oxyCODONE HCl Immed Release 5 MG TABLET PO ×2 (09:53→22:06)
[2020-01-28] MEDS: Atorvastatin Calcium 80 MG TABLET PO (09:53)
[2020-01-28] MEDS: Folic Acid 1 MG TABLET PO (09:56)
[2020-01-28 11:47] LABS: Glucose, Whole Blood 126 mg/dL (60-115)
--- NOTE | 2020-01-28 12:02 | MHC.CM.PN ---
talked with pts son norma who will transport pt home when dcd he is also a caregiver for pt pt has vna servceis thru ne
--- NOTE | 2020-01-28 15:35 | PM.IMPN ---
Subjective Subjective Date of Service: 01/28/20 Interval History: [Patient interviewed in [place]. Son also present.] No further speech difficulties. No further RUE weakness/numbness. No tremors though legs are restless. Constitutional Constitutional: Denies headache(s) and Denies weakness ENT Ears, Nose, Mouth, and Throat: Denies headache(s) Cardiovascular Cardiovascular: Denies chest pain Musculoskeletal Musculoskeletal: Denies tingling Neurologic Neurologic: Denies Abnormal speech present, Denies headache(s), Denies seizure-like activity, Denies tingling and Denies weakness Physical Exam Vital Signs: Vital Signs: Vital Signs Temp Pulse Resp BP Pulse Ox 01/28/20 14:00 96.9 F 56 18 121/63 99 01/28/20 11:34 97.4 F 55 18 131/74 99 01/28/20 09:52 64 138/61 01/28/20 09:50 96.7 F L 16 138/61 96 01/28/20 09:24 62 125/62 99 01/28/20 07:11 97.7 F 62 18 125/62 99 01/28/20 03:33 97.4 F 64 16 146/68 H 99 01/28/20 01:38 58 12 109/57 L 98 01/28/20 00:00 98.6 F 64 16 133/61 99 01/27/20 22:52 98.4 F 69 20 137/86 99 Body Mass Index 22.6 Const: General: no acute distress Eyes: Pupils: Equal, round and reactive pupils present Resp: Effort & Inspection: normal respiratory effort Auscultation: clear to auscultation bilaterally Cardio: Rate: regular rate Rhythm: regular rhythm Neuro: General: moves all extremities Cranial nerves: Yes Equal, round and reactive pupils present Speech: No Abnormal speech present Motor exam (neuro): 5/5 motor strength present throughout and Motor abnormalites present (restless legs) Psych: Appearance: grossly normal Objective Data Current Medications Generic Name Dose Route Start Last Admin Trade Name Freq PRN Reason Stop Dose Admin Acetaminophen/Butalbital/Caffeine 1 tab 01/28/20 03:06 Butalb/Acetamin/Caff 50/325/40 1 Tab Tablet PO Q6H PRN Headache Atorvastatin Calcium 80 mg 01/28/20 09:00 01/28/20 09:53 Atorvastatin Calcium 80 Mg Tablet PO 80 mg DAILY VY Administration Docusate Sodium 100 mg 01/28/20 03:06 Docusate Sodium 100 Mg Capsule PO DAILY PRN Constipation Folic Acid 1 mg 01/28/20 09:00 01/28/20 09:56 Folic Acid 1 Mg Tablet PO 1 mg DAILY VY Administration Insulin Human Lispro 0 unit 01/28/20 07:30 01/28/20 12:13 Insulin Lispro 100 Unit/Ml 3 Ml Vial SUBCUT Not Given QIDACHS [facility] Protocol Lisinopril 5 mg 01/28/20 09:00 01/28/20 09:52 Lisinopril 5 Mg Tablet PO 5 mg DAILY VY Administration Protocol Ondansetron HCl 4 mg 01/28/20 03:06 Ondansetron Hcl 4 Mg/2 Ml Vial IVPUSH Q8H PRN Nausea and Vomiting Oxycodone HCl 5 mg 01/28/20 09:00 01/28/20 09:53 Oxycodone Hcl Immed Release 5 Mg Tablet PO 5 mg BID VY Administration Vitamin D 50 mcg 01/28/20 09:00 01/28/20 09:52 Cholecalciferol (Vitamin D3) 25 Mcg Tablet PO 50 mcg DAILY VY Administration Labs CBC & Chem 7: 01/28/20 04:37 01/28/20 04:37 Labs: Laboratory Results - last 24 hr 01/27/20 01/27/20 01/27/20 23:22 23:23 23:24 MCV 86.7 MCH 27.6 MCHC 31.9 RDW 15.1 Plt Count 111 L MPV 12.4 H Immature Gran % (Auto) 0.3 Neut % (Auto) 67.8 Lymph % (Auto) 20.4 [place] % (Auto) 10.2 Eos % (Auto) 1.0 Baso % (Auto) 0.3 Lymph # (Auto) 1.2 [place] # (Auto) 0.6 Eos # (Auto) 0.1 Baso # (Auto) 0.0 Abs Immat Gran (auto) 0.02 Absolute Neuts (auto) 4.0 Absolute Nucleated RBC 0.000 Nucleated RBC % (auto) 0.0 PT Whole Blood PT 13.5 INR Whole Blood INR 1.1 Anion Gap Estim Creat Clear Calc Estimated GFR POC Glucose 98 Random Glucose Calcium Urine Color Urine Appearance Urine pH Ur Specific [place] Urine Protein Urine Glucose (UA) Urine Ketones Urine Blood Urine Nitrite Ur Leukocyte Esterase Urine RBC Urine WBC Ur Squamous Epith Cells Urine Bacteria Urine Mucus 01/27/20 01/27/20 01/28/20 23:24 23:24 00:30 MCV MCH MCHC RDW Plt Count MPV Immature Gran % (Auto) Neut % (Auto) Lymph % (Auto) [place] % (Auto) Eos % (Auto) Baso % (Auto) Lymph # (Auto) [place] # (Auto) Eos # (Auto) Baso # (Auto) Abs Immat Gran (auto) Absolute Neuts (auto) Absolute Nucleated RBC Nucleated RBC % (auto) PT 13.6 H Whole Blood PT INR 1.1 Whole Blood INR Anion Gap 16 Estim Creat Clear Calc 33.2 Estimated GFR 49 POC Glucose Random Glucose 106 Calcium 8.7 Urine Color YELLOW Urine Appearance CLEAR Urine pH 5.5 Ur Specific [place] 1.010 Urine Protein NEG Urine Glucose (UA) NEG Urine Ketones NEG Urine Blood NEG Urine Nitrite NEG Ur Leukocyte Esterase 1+ H Urine RBC 0 Urine WBC 1-4 Ur Squamous Epith Cells 2+ Urine Bacteria NONE Urine Mucus 1+ 01/28/20 01/28/20 01/28/20 03:31 04:37 04:37 MCV 87.8 MCH 27.6 MCHC 31.4 RDW 15.4 Plt Count 103 L MPV 12.3 Immature Gran % (Auto) 0.2 Neut % (Auto) 66.7 Lymph % (Auto) 21.7 [place] % (Auto) 9.7 Eos % (Auto) 1.2 Baso % (Auto) 0.5 Lymph # (Auto) 0.9 L [place] # (Auto) 0.4 Eos # (Auto) 0.1 Baso # (Auto) 0.0 Abs Immat Gran (auto) 0.01 Absolute Neuts (auto) 2.7 Absolute Nucleated RBC 0.000 Nucleated RBC % (auto) 0.0 PT Whole Blood PT INR Whole Blood INR Anion Gap 12 Estim Creat Clear Calc 30.9 Estimated GFR 45 POC Glucose 87 Random Glucose 188 H D Calcium 8.3 L Urine Color Urine Appearance Urine pH Ur Specific [place] Urine Protein Urine Glucose (UA) Urine Ketones Urine Blood Urine Nitrite Ur Leukocyte Esterase Urine RBC Urine WBC Ur Squamous Epith Cells Urine Bacteria Urine Mucus 01/28/20 01/28/20 01/28/20 07:26 09:08 11:31 MCV MCH MCHC RDW Plt Count MPV Immature Gran % (Auto) Neut % (Auto) Lymph % (Auto) [place] % (Auto) Eos % (Auto) Baso % (Auto) Lymph # (Auto) [place] # (Auto) Eos # (Auto) Baso # (Auto) Abs Immat Gran (auto) Absolute Neuts (auto) Absolute Nucleated RBC Nucleated RBC % (auto) PT 13.6 H Whole Blood PT INR 1.1 Whole Blood INR Anion Gap Estim Creat Clear Calc Estimated GFR POC Glucose 76 126 H Random Glucose Calcium Urine Color Urine Appearance Urine pH Ur Specific [place] Urine Protein Urine Glucose (UA) Urine Ketones Urine Blood Urine Nitrite Ur Leukocyte Esterase Urine RBC Urine WBC Ur Squamous Epith Cells Urine Bacteria Urine Mucus MRI brain W/WO contrast: Redemonstrated left frontal lobe intraparenchymal hemorrhage, small volume subarachnoid hemorrhage, and small volume left hemispheric subdural hematoma. Inherent T1 shortening of the intraparenchymal hemorrhagic products partially limits evaluation; however, there is no demonstrated evidence of masslike enhancement in this region to strongly suggest an underlying lesion. No additional abnormal intracranial enhancement. Progress Note: A&P (1) Intracranial hemorrhage: Status: Acute Assessment and Plan: hospital d#1 84yo F who developed small SAH after fall 01/20/20, admitted here 01/19-01/22/20 presented with slurred speech + RUE weakness/numbness which have resolved 1. TIA 2. subarachnoid hemorrhage 3. subdural hematoma 4. intraparenchymal hemorrhage - Neurology consultation - avoid ASA + heparin 5. cirrhosis with history esophageal varices - monitor for GI bleeding 6. 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 HTN - continue lisinopril 8. dyslipidemia - continue statin 9. DM2 - A1c only 5.8 on 08/27/19 10. VTE ppx - SCDs
[2020-01-28 16:16] LABS: Glucose, Whole Blood 138 mg/dL (60-115)
--- NOTE | 2020-01-28 17:40 | PM.NEUROCN ---
History of Present Illness Data of Consult Primary Care Provider: Dom Maynard MD HPI Reason for consult: Speech problem, transient right-sided numbness and one episode of shaking This is a 84-year-old woman who fell a couple weeks ago sustaining large area of ecchymosis in her wrist and right jaw and a CT scan showing predominantly a left sub-subarachnoid hemorrhage in the frontal region with a small amount of intraparenchymal blood. She was discharged in good condition and presented to the ER on the with a transient episode of shaking of the right hand that sounded like a focal seizure. Followup CAT scan showed no significant change and she was discharged and she now comes in because of an episode of trouble speaking and some right-sided numbness. CAT scan and MRI show that there is a intraparenchymal hematoma in the left frontal region and the subarachnoid blood is still present. There is a slight increase in size of the intraparenchymal hemorrhage. The patient remains fairly stable at this time does not have any headache and her speech is back to normal and she is using her right hand normally. Review of Systems Constitutional: Constitutional: Denies headache(s) and Denies weakness Eyes: Eyes: Reports no additional eye complaints ENT: Reports Normal hearing present and Denies headache(s) Cardiovascular: Cardiovascular: Reports no additional cardiovascular complaints Respiratory: Respiratory: Reports no additional respiratory complaints Gastrointestinal: Gastrointestinal: Reports no additional gastrointestinal complaints Musculoskeletal: Musculoskeletal: Denies tingling Integumentary/Breasts: Skin/Breast: Reports system reviewed and no additional complaints, except as docu Neurologic: Reports Normal hearing present, Denies Abnormal speech present, Denies headache(s), Denies seizure-like activity, Denies tingling and Denies weakness Psychiatric: Psychiatric: Reports as per HPI Endocrine: Endocrine: Reports no additional endocrine complaints Hematologic/Lymphatic: Hematologic/Lymphatic: Reports no additional hematologic/lymphatic complaints Allergic/Immunologic: Allergic/Immunologic: Reports no additional allergic/immunologic complaints [facility] Past Medical History Medical History (Updated 01/28/20 @ 17:42 by Julisa Faulkner MD) Abrasion Acute cervical sprain Breast cancer Cirrhosis of liver with ascites Contusion Diabetes mellitus Elbow sprain Esophageal varices without bleeding Hand sprain Hx of breast cancer Hx of hemorrhoids Hypercholesterolemia Hypertension Intracranial hemorrhage Knee sprain 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 Osteoporosis Rheumatoid arthritis Sprain of wrist Thrombocytopenia Surgical History Surgical History (System 01/28/20 @ 14:57 by Bryce Hernandez) History of cholecystectomy (~2010) History of hemorrhoidectomy History of liver biopsy (~04/02/19) History of right mastectomy (~1985) Hx of colonoscopy Social History Social History (System 01/28/20 @ 14:57 by Bryce Hernandez) Household Members: Children Housing: Unknown / Unable to assess Do you presently have visiting nurse or other home services: No Alcohol intake: never Smoking Status: Never smoker Smoked in Last 30 Days: No Patient Interested in Nicotine Replacement: No Patient Given Instructions on How to Stop Smoking: No Second Hand Smoke Exposure: No Use of substances other than those prescribed or required for medical reasons: No Currently Displaying Signs/Symptoms of Drug Intoxication Withdrawal: No Have you been hit, kicked, punched, or otherwise hurt by someone within the past year? If so, by whom?: No Do you feel safe in your current relationship?: No Is there a partner from a previous relationship who is making you feel unsafe now?: No Are you made to feel afraid or neglected: No Advance Directives: No Advance Directives Information Provided: No Do you have thoughts of harming others: None Do you have a plan to hurt others: No Plan Recently lost weight without trying: No service: No Meds Allergies Allergy/AdvReac Type Severity Reaction Status Date / Time No Known Allergies Allergy Verified 01/28/20 14:57 Home Medications Medication Instructions Recorded Confirmed Type cholecalciferol (vitamin D3) 50 50 mcg PO DAILY 01/15/20 01/28/20 History mcg (2,000 unit) capsule ferrous sulfate 325 mg (65 mg 325 mg PO DAILY 01/15/20 01/28/20 History iron) tablet lisinopril 5 mg tablet 5 mg PO DAILY 01/15/20 01/28/20 History metformin 500 mg tablet 500 mg PO BID 01/15/20 01/28/20 History oxycodone 5 mg tablet 5 mg PO BID 01/15/20 01/28/20 History simvastatin 20 mg tablet 20 mg PO DAILY 01/15/20 01/28/20 History alendronate 35 mg PO QWEEK 01/28/20 01/28/20 History [id number] 1 tab PO Q6H PRN 01/28/20 01/28/20 History folic acid 1 mg PO DAILY 01/28/20 01/28/20 History Physical Exam Vital Signs: Vital Signs: Vital Signs Temp Pulse Resp BP Pulse Ox 01/28/20 16:00 97 F 59 18 111/57 L 100 01/28/20 14:00 96.9 F 56 18 121/63 99 01/28/20 11:34 97.4 F 55 18 131/74 99 01/28/20 09:52 64 138/61 01/28/20 09:50 96.7 F L 16 138/61 96 01/28/20 09:24 62 125/62 99 01/28/20 07:11 97.7 F 62 18 125/62 99 01/28/20 03:33 97.4 F 64 16 146/68 H 99 01/28/20 01:38 58 12 109/57 L 98 01/28/20 00:00 98.6 F 64 16 133/61 99 01/27/20 22:52 98.4 F 69 20 137/86 99 Body Mass Index 22.6 Const: General: cooperative, comfortable, no acute distress, well developed, alert and awake Nutritional Appearance: well nourished Orientation/consciousness: oriented to person, oriented to place and oriented to time Limitations: no limitations HENMT: Head: Yes normal to inspection, Yes normocephalic and Yes atraumatic Ears: hearing grossly normal bilaterally General nose exam: Normal external nose present Face and sinus: Yes normal facial exam Mouth: Normal oral and palatal mucosa present Eyes: General: appearance normal, both eyes and all related structures Visual Avalos: normal visual avalos by confrontation Alignment and Position: alignment normal Periorbital: periorbital findings normal Eyelids: Yes eyelids normal Conjunctivae: conjunctivae normal Sclerae: sclerae normal Corneas: corneas normal Pupils: Equal, round and reactive pupils present and Pupil accommodation reflex normal EOM: EOMs intact bilaterally Direct Ophthalmoscopy: normal light reflex Neck: Neck: Yes normal visual inspection, Yes full ROM and Yes no meningeal signs Thyroid: Thyroid normal Carotids: normal carotid upstroke and bounding pulses Chest: Chest palpation & inspection: normal inspection of the chest Resp: Effort & Inspection: normal respiratory effort Auscultation: clear to auscultation bilaterally Cardio: Rate: regular rate Rhythm: regular rhythm Heart sounds: S1 normal heart sound present and S2 normal heart sound present Peripheral pulses: Peripheral pulses 2+ throughout GI: Inspection: Yes normal to inspection Percussion: Yes normal to percussion Auscultation: normal bowel sounds Rectal Exam - Female: deferred Back/Spine/Pelvis: Cervical Spine: normal cervical lordosis and cervical ROM normal Thoracic/Lumbar Spine: thoracic and lumbar spine normal to inspection Skin: General skin exam: no rashes or lesions noted Neuro: General: oriented to person, oriented to place, oriented to time, gait normal, tone normal, moves all extremities, Normal light touch and pain sensation, no meningeal signs, no focal motor deficits, CN's II-XI intact bilaterally, normal sensation to monofilament and deep tendon reflexes 2+ bilaterally Cranial nerves: Yes CN's II-XII intact bilaterally, Yes Equal, round and reactive pupils present, Yes Bilaterally intact EOM present, Yes Nystagmus not present, Yes Normal facial strength present, Yes Midline tongue present, Yes Normal gag reflex present, Yes Symmetric palate elevation present, Yes Normal hearing present and Yes Ability to bilaterally rotate head present Cognition (Neuro): normal cognition Speech: No Abnormal speech present Gait exam (Neuro): Normal gait present Motor exam (neuro): 5/5 motor strength present throughout, Pronator motor function not present, no tremor noted, no asterixis, Motor fasciculations not present, Normal motor muscle tone present throughout and Motor abnormalities not present Sensory Exam: Bilaterally intact graphesthesia Deep tendon reflexes (DTR's): Right triceps reflex intensity grade: 2+, Left triceps reflex intensity grade: 2+, Rt Biceps (C5, C6): 2+, Left biceps reflex intensity grade: 2+, Right brachioradialis reflex intensity grade: 2+, Left brachioradialis reflex intensity grade: 2+, Right patellar reflex intensity grade: 2+, Left patellar reflex intensity grade: 2+, Right ankle reflex intensity grade: 2+ and Left ankle reflex intensity grade: 2+ Plantar Reflex Responses: downgoing: right, left and bilateral Coordination: [id number] test normal, [id number] test normal, tandem gait normal and Romberg test negative Pupils: Normal pupillary reactivity/response: bilateral Extrem: General: Yes normal to inspection, Yes normal exam except as noted and Yes no pedal edema Psych: Appearance: grossly normal Mental Status: mental status grossly normal Speech and movement: Normal speech and movement present and Clear speech present Affect: normal affect Attitude: cooperative Thought process: Normal thought process present Results Labs CBC & Chem 7: 01/28/20 04:37 01/28/20 04:37 Labs: Short CBC 01/27/20 01/28/20 Range/Units 23:24 04:37 WBC 6.0 4.1 L (4.8-10.8) X10*3/uL Hgb 11.0 L 10.0 L (12.0-16.0) g/dl Hct 34.5 L 31.8 L (37-47) % Plt Count 111 L 103 L (160-400) X10*3/uL BMP 01/27/20 01/28/20 23:24 04:37 Sodium 139 139 Potassium 4.5 3.7 Chloride 104 105 Carbon Dioxide 24 26 BUN 29 H 26 H Creatinine 1.07 1.15 Calcium 8.7 8.3 L Urine 01/28/20 Range/Units 00:30 Urine Color YELLOW Urine Appearance CLEAR Urine pH 5.5 (5.0-8.0) Ur Specific [place] 1.010 (1.005-1.025) Urine Protein NEG (NEG-TRACE) MG/DL Urine Glucose (UA) NEG (NEG) MG/DL Assessment and Plan (1) Intracranial hemorrhage: Problem details: Traumatic left frontal intracerebral hemorrhage along with subarachnoid hemorrhage adjacent area Status: Acute Conservative management. No surgical intervention indicated. Expect the blood to resorb by itself over the next 8 weeks. (2) SAH (subarachnoid hemorrhage): Status: Acute Will resolve spontaneously over the next couple of weeks. There is potential for seizures and therefore I recommend starting her on Keppra 500 mg twice a day (3) Cirrhosis of liver with ascites: Qualifiers: Hepatic cirrhosis type: unspecified hepatic cirrhosis Qualified Code(s): K74.60 - Unspecified cirrhosis of liver; R18.8 - Other ascites Status: Acute (4) Esophageal varices without bleeding: Status: Acute (5) Thrombocytopenia: Status: Acute
[2020-01-28 21:25] LABS: Glucose, Whole Blood 121 mg/dL (60-115)
[2020-01-28] MEDS: levETIRAcetam 500 MG TABLET PO (22:06)
[2020-01-29 03:39] VITALS: BP 112/56; PULSE 55; RESP 18; TEMP 36.7; O2SAT 99
[2020-01-29 06:51] LABS: Basophils Percent Auto 0.5 % (0-2); Hematocrit 31.1 % (37-47); Imm Gran Abs Auto 0.01 X10*3/uL (0.00-0.03); Imm Gran Pct Auto 0.3 % (0.0-0.4); Monocytes Absolute Auto 0.4 X10*3/uL (0.1-1.2)
[2020-01-29 06:53] LABS: Eosinophils Absolute Auto 0.1 X10*3/uL (0.0-0.4); Eosinophils Percent Auto 1.3 % (0-4); Hemoglobin 9.9 g/dl (12.0-16.0); Lymphocytes Percent Auto 24.8 % (20-40); Mean Corpuscular HGB Conc 31.8 g/dl (31.0-35.0); Mean Corpuscular Hemoglobin 27.8 pg (27.0-33.0); Mean Corpuscular Volume 87.4 fL (80-98); Mean Platelet Volume 11.8 fL (9.4-12.3); Monocytes Percent Auto 9.8 % (2-11); Neutrophils Absolute Auto 2.5 X10*3/uL (2.0-8.3); Neutrophils Percent Auto 63.3 % (45-73); Red Blood Count 3.56 X10*6/uL (4.20-5.50); Red Cell Distribution Width 15.1 % (11.0-16.0); White Blood Count 3.9 X10*3/uL (4.8-10.8)
[2020-01-29 06:55] LABS: Platelet Count 97 X10*3/uL (160-400)
[2020-01-29 06:56] LABS: MANUAL DIFF FLAG MP; PLT CLUMP MP
[2020-01-29 07:01] LABS: INTERNATIONAL NORM RATIO 1.2 (0.9-1.1); Prothrombin Time 14.6 SEC (10.8-13.0)
[2020-01-29 07:06] VITALS: BP 139/63; PULSE 61; RESP 18; TEMP 36.3; O2SAT 99
[2020-01-29 07:10] LABS: Anion Gap 10 (12-20); Blood Urea Nitrogen 24 mg/dL (9-16); Calcium 8.1 mg/dL (8.4-10.2); Carbon Dioxide 26 mmol/L (22-29); Chloride 109 mmol/L (96-108); Creatinine Clr Calc Pharmacy 34.8; Estimated Glomerular Filt Rate 52; Glucose Random 103 mg/dL (60-115); Potassium 3.9 mmol/l (3.3-5.1); Sodium 141 mmol/L (135-145)
[2020-01-29 07:25] LABS: Glucose, Whole Blood 96 mg/dL (60-115)
[2020-01-29] MEDS: Cholecalciferol (Vitamin D3) 25 MCG TABLET 50 MCG PO (09:00)
[2020-01-29] MEDS: levETIRAcetam 500 MG TABLET PO (09:00)
[2020-01-29 09:01] VITALS: BP 139/63; PULSE 61
[2020-01-29] MEDS: lisinopriL 5 MG TABLET PO (09:01)
[2020-01-29] MEDS: Atorvastatin Calcium 80 MG TABLET PO (09:01)
[2020-01-29] MEDS: Folic Acid 1 MG TABLET PO (09:01)
[2020-01-29] MEDS: oxyCODONE HCl Immed Release 5 MG TABLET PO (09:01)
[2020-01-29 10:33] VITALS: BP 139/63; PULSE 61
--- NOTE | 2020-01-29 11:00 | CA_ITS ---
Transthoracic Echocardiogram Patient (Last, First, Middle): Duyen Matos L Gender: Female Date of : 1935 Age: 84 Procedure Date: 01/29/2020 Procedure Type: Transthoracic Echocardiogram [place] [facility] [place]: 162.56 cm Weight: 60.33 kg BSA: 1.64 m2 Heart Rate: bpm BP: 137 / 63 mmHg Quarantine Inspector: DSG Referring MD: Malathi Mccann MD Symptoms: TIA like symptoms Study Quality: Fair ECG Rhythm: Sinus Conclusions: - The left ventricular systolic function is normal. The visually estimated ejection fraction is between 55-60%. - Possible hypokinesis in the basal inferior and inferolateral views. - No obvious valvular pathology seen on this study. Findings Left Ventricle Normal left ventricular cavity size. There is normal left ventricular wall thickness. The left ventricular systolic function is normal. The visually estimated ejection fraction is between 55-60%. E/E prime ratio is between 8 and 15 consistent with indeterminate filling pressures. Evidence suggests grade I (mild) diastolic dysfunction. Possible hypokinesis in the basal inferior and inferolateral views. Right Ventricle Normal right ventricular cavity size. There is low normal right ventricular systolic function. Atria The left atrium is normal in size. The right atrium is normal in size. Aortic Valve There is a normal trileaflet aortic valve. There is mild calcification of the aortic valve. There is no aortic valve stenosis. There is no aortic valve regurgitation. Mitral Valve The mitral valve appears normal. There is mild mitral annular calcification. There is trace mitral valve regurgitation. There is no mitral valve stenosis. Pulmonic Valve The pulmonic valve was not well visualized. Tricuspid Valve Normal tricuspid valve structure. There is trace tricuspid valve regurgitation. The pulmonary artery systolic pressure is normal. Great Vessels The aortic annulus, sinuses of valsalva, and asc aorta are normal in size. Venous The inferior vena cava is normal in size and collapses greater than 50% with inspiration. Pericardium/Pleural There is no evidence of pericardial effusion. Prior Study Comparison No significant change compared to prior study dated: 04/03/2018. Recommendations, Care & Conclusions No obvious valvular pathology seen on this study. Measurements 2D Linear Measurements IVSd: 1.09 0.6-0.9/0.6-1.0 cm LVIDd: 4.30 3.9-5.3/4.2-5.9 cm LVIDs: 2.72 2.0-3.6 cm LVPWd: 0.75 0.7-1.1 cm Ao Root: 2.82 2.1-3.5 cm LV Mass: 158.09 67-162/88-224 g LVOT Diam: 1.78 3.0+(-)1.3 cm Mitral Valve MV Pk E: 0.56 MV PK A: 1.18 MV Decel Time: 262.57 E/A: 0.48 Decel [place]: 2.15 Aortic Valve AoV Pk Antonio: 1.42 AoV Pk Grad: 8.10 LVOT LVOT Pk Antonio: 1.34 LVOT Mn Antonio: 0.79 LVOT VTI: 0.32 LVOT Pk Grad: 7.19 LVOT Mn Grad: 3.25 LVOT Diam: 1.78 LVOT Area: 2.49 Diastolic Function MV Pk E: 0.56 MV Pk A: 1.18 E/A: 0.48 Tricuspid Valve TR Pk Antonio: 2.31 TR Pk Grad: 21.27 RA Press: 3.00 RVSP: 24.00 Great Vessels Aorta Ao Root-2D: 2.82 2.0-3.7 cm Ao Asc: 3.27 2.1-3.4 cm Updated in Other Vendor System with Status of Final Ulices Mcclendon MD electronically signed on 01/29/2020 4:29:18 PM with status of Final
[2020-01-29 11:11] VITALS: BP 118/58; PULSE 56; RESP 18; TEMP 36.3; O2SAT 100
[2020-01-29 11:36] LABS: Glucose, Whole Blood 165 mg/dL (60-115)
--- NOTE | 2020-01-29 12:53 | MHC.CM.PN ---
per rounds pt expected to be dcd today
--- NOTE | 2020-01-29 14:46 | P.F2F_ITS ---
Service Date Service Date: 01/29/20 Reasons for Services overseeing care: Dom Maynard MD Homebound: Leaving the home is medically contraindicated at this time without the asist of a device and/or another person due th the listed conditions above and below. Certification: Based on the above findings, I certify that this patient is confined to the home and needs intermittent group home care, physical therapy and/or speech therapy, or continues to need occupational therapy. The patient is under my care, and I have initiated the establishment of the plan of care. The patient will be followed by a physician who will periodically review the plan of care.
--- NOTE | 2020-01-29 14:53 | P.DS_ITS ---
DS: Providers Provider Date of admission: 01/28/20 09:00 Primary care physician: Dom Maynard MD Consults: 01/28/20 03:06 Consult to Neurology Routine Consulting Provider: Radha Stern Reason for consultation: TIA like sysmptos post post subarachnoid hemorrhage DS: Diagnosis Discharge Diagnosis (1) Intracranial hemorrhage: Status: Acute Problem details: Traumatic left frontal intracerebral hemorrhage along with subarachnoid h emorrhage adjacent area (2) SAH (subarachnoid hemorrhage): Status: Acute (3) Cirrhosis of liver with ascites: Status: Acute (4) Esophageal varices without bleeding: Status: Acute (5) Thrombocytopenia: Status: Acute DS: Summary Hospital Course Hospital Course: From the admission history and physical by hospitalist Malathi Mccann, 01/28/20: This is a Mosotho-speaking 84-year-old female with extensive past medical history who presents to the hospital with complaints of right upper extremity numbness and tingling in lower extremity weakness as well as slurred speech. Of note patient developed a subarachnoid hemorrhage following a mechanical fall on December 30. at that time no intervention was recommended, she also presented to the hospital on and with complaints of right upper extremity tremors, thought to possibly secondary to seizures, after consultation within the and she patient was sent home. She returns today stating that her right upper extremity is numb and tingling. her son also noted that she had difficulty ambulating with her walker. But had no fall. She otherwise denies any change in her vision, no blurred or double vision, no headache, and by the time she arrived to the ED patient was back to her baseline. She has no chest pain, shortness of breath, abdominal pain, nausea vomiting no diarrhea constipation, no urinary symptoms and no lower extremity edema on arrival to the ED patient hemodynamically stable with no significant abnormal vitals labs with no significant abnormality CT of the head shows region of acute intraparenchymal hemorrhage in the left frontal lobe measuring up to approximately 2.8 cm with a thin rim of surrounding edema patient will be admitted for TIA workup The patient was admitted to the [facility]. Right-sided numbness and tingling resolved and she had no motor deficit. MRI demonstrated stability of the left fontral lobe intraparenchymal and subarachnoid hemorrhage along with a small volume left hemispheric subdural hematoma. Neurology was consulted and recommended starting the patient on levetiracetam 500 mg bid for prevention of seizures. Repeat CT of the head in 3 weeks will be performed and she will follow up with Neurology in 4 weeks. She was discharged home with visiting nurse services. Time Spent with Patient Time attestation: Total time spent providing and/or coordinating discharge services: Physical Exam Vital Signs: Vital Signs: Vital Signs Temp Pulse Resp BP Pulse Ox 01/29/20 11:11 97.3 F 56 18 118/58 L 100 01/29/20 10:33 61 139/63 01/29/20 09:01 61 139/63 01/29/20 07:06 97.4 F 61 18 139/63 99 01/29/20 03:39 98.0 F 55 18 112/56 L 99 01/28/20 23:36 98.6 F 57 20 112/54 L 99 01/28/20 19:56 96.9 F 52 18 135/62 97 01/28/20 18:00 98.0 F 61 18 123/58 L 100 01/28/20 16:00 97 F 59 18 111/57 L 100 Body Mass Index 22.6 Const: General: no acute distress Orientation/consciousness: patient oriented x3 Eyes: Pupils: Equal, round and reactive pupils present Neck: Neck: Yes supple Chest: Chest palpation & inspection: normal inspection of the chest Resp: Effort & Inspection: normal respiratory effort and able to speak in complete sentences Auscultation: clear to auscultation bilaterally Cardio: Rate: regular rate Rhythm: regular rhythm Heart sounds: Murmur heart sound present GI: Inspection: Yes normal to inspection Palpation (GI): Soft to palpation and nontender Neuro: General: patient oriented x3 and CN's II-XI intact bilaterally Cranial nerves: Yes Equal, round and reactive pupils present Motor exam (neuro): 5/5 motor strength present throughout DS: Data Data Completed and Pending Labs on day of discharge: Laboratory Results - last 72 hr 01/27/20 01/27/20 01/27/20 23:22 23:23 23:24 WBC 6.0 RBC 3.98 L Hgb 11.0 L Hct 34.5 L MCV 86.7 MCH 27.6 MCHC 31.9 RDW 15.1 Plt Count 111 L MPV 12.4 H Immature Gran % (Auto) 0.3 Neut % (Auto) 67.8 Lymph % (Auto) 20.4 [place] % (Auto) 10.2 Eos % (Auto) 1.0 Baso % (Auto) 0.3 Lymph # (Auto) 1.2 [place] # (Auto) 0.6 Eos # (Auto) 0.1 Baso # (Auto) 0.0 Abs Immat Gran (auto) 0.02 Absolute Neuts (auto) 4.0 Absolute Nucleated RBC 0.000 Nucleated RBC % (auto) 0.0 PT Whole Blood PT 13.5 INR Whole Blood INR 1.1 Sodium Potassium Chloride Carbon Dioxide Anion Gap BUN Creatinine Estim Creat Clear Calc Estimated GFR POC Glucose 98 Random Glucose Calcium Urine Color Urine Appearance Urine pH Ur Specific [place] Urine Protein Urine Glucose (UA) Urine Ketones Urine Blood Urine Nitrite Ur Leukocyte Esterase Urine RBC Urine WBC Ur Squamous Epith Cells Urine Bacteria Urine Mucus 01/27/20 01/27/20 01/28/20 23:24 23:24 00:30 WBC RBC Hgb Hct MCV MCH MCHC RDW Plt Count MPV Immature Gran % (Auto) Neut % (Auto) Lymph % (Auto) [place] % (Auto) Eos % (Auto) Baso % (Auto) Lymph # (Auto) [place] # (Auto) Eos # (Auto) Baso # (Auto) Abs Immat Gran (auto) Absolute Neuts (auto) Absolute Nucleated RBC Nucleated RBC % (auto) PT 13.6 H Whole Blood PT INR 1.1 Whole Blood INR Sodium 139 Potassium 4.5 Chloride 104 Carbon Dioxide 24 Anion Gap 16 BUN 29 H Creatinine 1.07 Estim Creat Clear Calc 33.2 Estimated GFR 49 POC Glucose Random Glucose 106 Calcium 8.7 Urine Color YELLOW Urine Appearance CLEAR Urine pH 5.5 Ur Specific [place] 1.010 Urine Protein NEG Urine Glucose (UA) NEG Urine Ketones NEG Urine Blood NEG Urine Nitrite NEG Ur Leukocyte Esterase 1+ H Urine RBC 0 Urine WBC 1-4 Ur Squamous Epith Cells 2+ Urine Bacteria NONE Urine Mucus 1+ 01/28/20 01/28/20 01/28/20 03:31 04:37 04:37 WBC 4.1 L RBC 3.62 L Hgb 10.0 L Hct 31.8 L MCV 87.8 MCH 27.6 MCHC 31.4 RDW 15.4 Plt Count 103 L MPV 12.3 Immature Gran % (Auto) 0.2 Neut % (Auto) 66.7 Lymph % (Auto) 21.7 [place] % (Auto) 9.7 Eos % (Auto) 1.2 Baso % (Auto) 0.5 Lymph # (Auto) 0.9 L [place] # (Auto) 0.4 Eos # (Auto) 0.1 Baso # (Auto) 0.0 Abs Immat Gran (auto) 0.01 Absolute Neuts (auto) 2.7 Absolute Nucleated RBC 0.000 Nucleated RBC % (auto) 0.0 PT Whole Blood PT INR Whole Blood INR Sodium 139 Potassium 3.7 Chloride 105 Carbon Dioxide 26 Anion Gap 12 BUN 26 H Creatinine 1.15 Estim Creat Clear Calc 30.9 Estimated GFR 45 POC Glucose 87 Random Glucose 188 H D Calcium 8.3 L Urine Color Urine Appearance Urine pH Ur Specific [place] Urine Protein Urine Glucose (UA) Urine Ketones Urine Blood Urine Nitrite Ur Leukocyte Esterase Urine RBC Urine WBC Ur Squamous Epith Cells Urine Bacteria Urine Mucus 01/28/20 01/28/20 01/28/20 07:26 09:08 11:31 WBC RBC Hgb Hct MCV MCH MCHC RDW Plt Count MPV Immature Gran % (Auto) Neut % (Auto) Lymph % (Auto) [place] % (Auto) Eos % (Auto) Baso % (Auto) Lymph # (Auto) [place] # (Auto) Eos # (Auto) Baso # (Auto) Abs Immat Gran (auto) Absolute Neuts (auto) Absolute Nucleated RBC Nucleated RBC % (auto) PT 13.6 H Whole Blood PT INR 1.1 Whole Blood INR Sodium Potassium Chloride Carbon Dioxide Anion Gap BUN Creatinine Estim Creat Clear Calc Estimated GFR POC Glucose 76 126 H Random Glucose Calcium Urine Color Urine Appearance Urine pH Ur Specific [place] Urine Protein Urine Glucose (UA) Urine Ketones Urine Blood Urine Nitrite Ur Leukocyte Esterase Urine RBC Urine WBC Ur Squamous Epith Cells Urine Bacteria Urine Mucus 01/28/20 01/28/20 01/29/20 16:11 21:21 05:40 WBC 3.9 L RBC 3.56 L Hgb 9.9 L Hct 31.1 L MCV 87.4 MCH 27.8 MCHC 31.8 RDW 15.1 Plt Count 97 L MPV 11.8 Immature Gran % (Auto) 0.3 Neut % (Auto) 63.3 Lymph % (Auto) 24.8 [place] % (Auto) 9.8 Eos % (Auto) 1.3 Baso % (Auto) 0.5 Lymph # (Auto) 1.0 L [place] # (Auto) 0.4 Eos # (Auto) 0.1 Baso # (Auto) 0.0 Abs Immat Gran (auto) 0.01 Absolute Neuts (auto) 2.5 Absolute Nucleated RBC 0.000 Nucleated RBC % (auto) 0.0 PT Whole Blood PT INR Whole Blood INR Sodium Potassium Chloride Carbon Dioxide Anion Gap BUN Creatinine Estim Creat Clear Calc Estimated GFR POC Glucose 138 H 121 H Random Glucose Calcium Urine Color Urine Appearance Urine pH Ur Specific [place] Urine Protein Urine Glucose (UA) Urine Ketones Urine Blood Urine Nitrite Ur Leukocyte Esterase Urine RBC Urine WBC Ur Squamous Epith Cells Urine Bacteria Urine Mucus 01/29/20 01/29/20 01/29/20 05:40 05:40 07:13 WBC RBC Hgb Hct MCV MCH MCHC RDW Plt Count MPV Immature Gran % (Auto) Neut % (Auto) Lymph % (Auto) [place] % (Auto) Eos % (Auto) Baso % (Auto) Lymph # (Auto) [place] # (Auto) Eos # (Auto) Baso # (Auto) Abs Immat Gran (auto) Absolute Neuts (auto) Absolute Nucleated RBC Nucleated RBC % (auto) PT 14.6 H Whole Blood PT INR 1.2 H Whole Blood INR Sodium 141 Potassium 3.9 Chloride 109 H Carbon Dioxide 26 Anion Gap 10 L BUN 24 H Creatinine 1.02 Estim Creat Clear Calc 34.8 Estimated GFR 52 POC Glucose 96 Random Glucose 103 D Calcium 8.1 L Urine Color Urine Appearance Urine pH Ur Specific [place] Urine Protein Urine Glucose (UA) Urine Ketones Urine Blood Urine Nitrite Ur Leukocyte Esterase Urine RBC Urine WBC Ur Squamous Epith Cells Urine Bacteria Urine Mucus 01/29/20 11:17 WBC RBC Hgb Hct MCV MCH MCHC RDW Plt Count MPV Immature Gran % (Auto) Neut % (Auto) Lymph % (Auto) [place] % (Auto) Eos % (Auto) Baso % (Auto) Lymph # (Auto) [place] # (Auto) Eos # (Auto) Baso # (Auto) Abs Immat Gran (auto) Absolute Neuts (auto) Absolute Nucleated RBC Nucleated RBC % (auto) PT Whole Blood PT INR Whole Blood INR Sodium Potassium Chloride Carbon Dioxide Anion Gap BUN Creatinine Estim Creat Clear Calc Estimated GFR POC Glucose 165 H Random Glucose Calcium Urine Color Urine Appearance Urine pH Ur Specific [place] Urine Protein Urine Glucose (UA) Urine Ketones Urine Blood Urine Nitrite Ur Leukocyte Esterase Urine RBC Urine WBC Ur Squamous Epith Cells Urine Bacteria Urine Mucus CT head 01/27/20 Region of acute intraparenchymal hemorrhage in the left frontal lobe measuring up to approximately 2.8 cm, with a thin rim of surrounding edema. Underlying mass may be present, and this would be better assessed with MRI. MRI brain 01/28/20 Redemonstrated left frontal lobe intraparenchymal hemorrhage, small volume subarachnoid hemorrhage, and small volume left hemispheric subdural hematoma. Inherent T1 shortening of the intraparenchymal hemorrhagic products partially limits evaluation; however, there is no demonstrated evidence of masslike enhancement in this region to strongly suggest an underlying lesion. No additional abnormal intracranial enhancement. Discharge Plan Discharge Patient Disposition: Home Health Service Referrals: Julisa Faulkner MD [Physician] - 4 Weeks Dom Maynard MD [Primary Care Provider] - Discharge Medications: New levetiracetam 500 mg Tablet 500 mg PO BID Qty: 60 RF: 0 Continued folic acid 1 mg tablet 1 mg PO DAILY RF: 0 wdexbixxtc-dwtvdmhvnuhua-hlqo 50-325-40 mg tablet 1 tab PO Q6H PRN (Reason: Headache) RF: 0 alendronate 35 mg tablet 35 mg PO QWEEK RF: 0 oxycodone 5 mg tablet 5 mg PO BID RF: 0 lisinopril 5 mg tablet 5 mg PO DAILY RF: 0 ferrous sulfate 325 mg (65 mg iron) tablet 325 mg PO DAILY RF: 0 simvastatin 20 mg tablet 20 mg PO DAILY RF: 0 metformin 500 mg tablet 500 mg PO BID RF: 0 cholecalciferol (vitamin D3) [Vitamin D3] 50 mcg (2,000 unit) capsule 50 mcg PO DAILY RF: 0 Discharge Orders: Discharge Order (Routine); Ordered 01/29/20 Ordered By: Mariah Capellan Diet: advance to your usual diet Activity on Discharge: As tolerated Patient Instructions: Subarachnoid Hemorrhage (DC) Other Ambulatory Orders: CT head/brain wo con (Routine) Timeframe: 3 Weeks Facility: [facility] - Location: CT Scan Ordered By: Mariah Capellan Visit Report Forms: Patient Portal Discharge page Care Plan Goals: see Plan of Treatment Health Concerns: see Plan of Treatment Plan of Treatment: Take Keppra [levetiracetam] 500 mg twice daily to prevent seizures Repeat CT of the brain in 3 weeks Follow up with Neurology in 4 weeks
== END 2020-01-29 15:45 | disposition home health service (06) | DRG 86 ==
LOC: HO.ED 01-28 02:16 → HO.IMC 01-28 03:06
PROVIDERS: Admitting Provider Internal Medicine; Emergency Provider Emergency Medicine; Visit Provider Family Medicine
DX: S06.6X0A Traumatic subarachnoid hemorrhage without loss of consciousness, initial encounter (principal); I85.10 Secondary esophageal varices without bleeding; R18.8 Other ascites; I10 Essential (primary) hypertension; E78.5 Hyperlipidemia, unspecified; E11.9 Type 2 diabetes mellitus without complications; K74.60 Unspecified cirrhosis of liver; D69.6 Thrombocytopenia, unspecified; R47.81 Slurred speech; D64.9 Anemia, unspecified; W19.XXXA Unspecified fall, initial encounter; Y93.9 Activity, unspecified; Y92.009 Unspecified place in unspecified non-institutional (private) residence as the place of occurrence of the external cause; Y99.9 Unspecified external cause status; Z79.84 Long term (current) use of oral hypoglycemic drugs; Z79.891 Long term (current) use of opiate analgesic; Z79.899 Other long term (current) drug therapy
CPT/HCPCS: 36415; 70450; 70553; 71046; 72125; 80048; 80053; 81001; 81003; 82947; 83735; 85025; 85610; 85730; 93005; 93306; 97110; 97116; 97162; 97166; 97535; 99219; 99223; 99284; 99285

== ENCOUNTER 2020-02-06 10:12 | Emergency (ER) | payer MEDICARE, MEDICAID, SELFPAY ==
[2020-02-06 10:28] VITALS: BP 125/56; PULSE 55; RESP 18; TEMP 37; O2SAT 99; BMI 21.9
--- NOTE | 2020-02-06 10:49 | ED.GENADULT ---
HPI - General Adult General Chief complaint: General Medical Stated complaint: LOW BLOOD PRESSURE Time Seen by Provider: 02/06/20 10:46 Source: patient Mode of arrival: ambulatory History of Present Illness HPI narrative: 84-year-old female with a past medical history of breast CA, liver cirrhosis with ascites, DM, hyperlipidemia, HTN, ICH s/p head trauma, thrombocytopenia presenting to ED complaining of low BP at home yesterday morning noted 88/53, and then 102/56 yesterday evening. Per son this morning was 101/57, patient remained asymptomatic throughout all BP readings. Son reports held her to 2.5mg Lisinopril this a.m. patient denies symptoms at present including CP, SOB, abdominal pain, nausea / vomiting, headache/vision changes, lightheadedness /dizziness, numbness /tingling. Onset (ago): day(s) Related Data Home Medications Medication Instructions Recorded Confirmed cholecalciferol (vitamin D3) 50 50 mcg PO DAILY 01/15/20 01/28/20 mcg (2,000 unit) capsule ferrous sulfate 325 mg (65 mg 325 mg PO DAILY 01/15/20 01/28/20 iron) tablet lisinopril 5 mg tablet 5 mg PO DAILY 01/15/20 01/28/20 metformin 500 mg tablet 500 mg PO BID 01/15/20 01/28/20 oxycodone 5 mg tablet 5 mg PO BID 01/15/20 01/28/20 simvastatin 20 mg tablet 20 mg PO DAILY 01/15/20 01/28/20 alendronate 35 mg PO QWEEK 01/28/20 01/28/20 gxjcypbiqu-gawjfcvmozeev-rvgs 1 tab PO Q6H PRN 01/28/20 01/28/20 folic acid 1 mg PO DAILY 01/28/20 01/28/20 Previous Rx's Medication Instructions Recorded levetiracetam 500 mg PO BID #60 tab 01/29/20 Allergies Allergy/AdvReac Type Severity Reaction Status Date / Time No Known Allergies Allergy Verified 01/28/20 14:57 Review of Systems Review of Systems: Constitutional: No Weight loss, No Fever, No Chills, No Night Sweats, No Fatigue, No Malaise ENT/Mouth: No sore throat, No Rhinorrhea Eyes: No Eye Pain, No Vision Changes Cardiovascular: No Chest Pain, No SOB, No Dyspnea on Exertion, No Edema, No Palpitations Respiratory: No Cough, No Sputum, No Wheezing, No Dyspnea Gastrointestinal: No Nausea, No Vomiting, No Diarrhea, No Constipation, No Abdominal pain Genitourinary: No Dysuria, No Urinary Frequency, No Hematuria Musculoskeletal: No joint pain, No Myalgias, No Joint Swelling Skin: No Skin Lesions, No rash Neuro: No Weakness, No Numbness, No Paresthesias, No Loss of Consciousness, No Dizziness, No Headache Yes all other systems are reviewed and are negative Neurologic: Denies Sensory deficit (Neuro) [facility] Past Medical History Attestation statement: The following information was validated with the patient. Medical History (Updated 02/06/20 @ 12:39 by ROBBY Kern) Abrasion Acute cervical sprain Breast cancer Cirrhosis of liver with ascites Contusion Diabetes mellitus Elbow sprain Esophageal varices without bleeding Hand sprain Hx of breast cancer Hx of hemorrhoids Hypercholesterolemia Hypertension Intracranial hemorrhage Knee sprain 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 Osteoporosis Rheumatoid arthritis Sprain of wrist Thrombocytopenia Surgical History (System 01/28/20 @ 14:57 by Bryce Hernandez) History of cholecystectomy (~2010) History of hemorrhoidectomy History of liver biopsy (~04/02/19) History of right mastectomy (~1985) Hx of colonoscopy Social History Social History (System 01/28/20 @ 14:57 by Bryce Hernandez) Household Members: Children Housing: Unknown / Unable to assess Alcohol intake: never Smoking Status: Never smoker Second Hand Smoke Exposure: No Use of substances other than those prescribed or required for medical reasons: No Advance Directives: No Advance Directives Information Provided: Yes service: No Physical Exam Vital Signs: Vital Signs: Vital Signs Temp Pulse Resp BP Pulse Ox 02/06/20 11:03 65 120/54 L 02/06/20 11:01 59 114/62 02/06/20 10:28 98.6 F 55 18 125/56 L 99 Body Mass Index 21.9 Const: General: cooperative and healthy appearing Limitations: no limitations HENMT: Head: Yes normal to inspection Ears: hearing grossly normal bilaterally General nose exam: Normal external nose present Face and sinus: Yes normal facial exam Eyes: General: appearance normal, both eyes and all related structures Pupils: Equal, round and reactive pupils present EOM: EOMs intact bilaterally Neck: Neck: Yes normal visual inspection and Yes no meningeal signs Resp: Effort & Inspection: normal respiratory effort Auscultation: clear to auscultation bilaterally, no crackles, no rales and no rhonchi Cardio: Rate: regular rate Heart sounds: S1 normal heart sound present and S2 normal heart sound present GI: Inspection: Yes normal to inspection Palpation (GI): Soft to palpation, nontender, no guarding and not rigid Skin: Rashes: no rashes Wounds: no wounds Neuro: General: tone normal, moves all extremities, no meningeal signs, no focal motor deficits and CN's II-XI intact bilaterally Cranial nerves: Yes Equal, round and reactive pupils present Gait exam (Neuro): Normal gait present Sensory Exam: No Sensory deficit (Neuro) Extrem: General: Yes normal to inspection and No edema Course Course Course Narrative: - orthostatic vital signs negative. POC glucose 110 with applied computer science professor discussed worrisome signs and symptoms and strict return precautions. Patient is to follow-up with her PCP. She verbalized understanding feel safe for discharge. Remained asymptomatic and normotensive through ED stay Medical Decision Making MDM Narrative Medical decision making narrative: 84-year-old female with a past medical history of breast CA, liver cirrhosis with ascites, DM, hyperlipidemia, HTN, ICH s/p head trauma, thrombocytopenia presenting to ED complaining of low BP at home yesterday morning noted 88/53. Patient asymptomatic. On exam BP in the ED 125/56, exam benign, no focal neuro deficits. Low concern for electrolyte /metabolic or infectious etiology. Low concern for ACS Plan: Orthostatics, POC glucose, anticipated DC home with PCP follow-up Lab Data Labs: Lab Results 02/06/20 Range/Units 10:59 POC Glucose 110 (60-115) mg/dL Discharge Plan Discharge Clinical Impression: Well adult health check Patient Disposition: Home, Self-Care Instructions: Hypotension (ED) Additional Instructions: your blood pressure was normal today in the ED. It is important that you follow-up with your primary care doctor Make sure your staying hydrated/eating properly at home If her blood pressure is running low hold your lisinopril for the day Continue to check it daily If it is persistently low, or you becomes symptomatic, you have headache, lightheadedness, dizziness, chest pain, or shortness of breath return to the ED Prescriptions: No Action folic acid 1 mg tablet 1 mg PO DAILY RF: 0 buqoqizbbl-szdqblkjpjjfk-lydm 50-325-40 mg tablet 1 tab PO Q6H PRN (Reason: Headache) RF: 0 alendronate 35 mg tablet 35 mg PO QWEEK RF: 0 levetiracetam 500 mg Tablet 500 mg PO BID Qty: 60 RF: 0 oxycodone 5 mg tablet 5 mg PO BID RF: 0 lisinopril 5 mg tablet 5 mg PO DAILY RF: 0 ferrous sulfate 325 mg (65 mg iron) tablet 325 mg PO DAILY RF: 0 simvastatin 20 mg tablet 20 mg PO DAILY RF: 0 metformin 500 mg tablet 500 mg PO BID RF: 0 cholecalciferol (vitamin D3) [Vitamin D3] 50 mcg (2,000 unit) capsule 50 mcg PO DAILY RF: 0 Referrals: Dom Maynard MD [Primary Care Provider] - 1 week ( as needed) ED Physician,Maddi [Emergency Provider] - 2 days ( your primary care doctor) Print Language: Romansh
[2020-02-06 11:01] VITALS: BP 109/57; BP 114/62; PULSE 55; PULSE 59
[2020-02-06 11:03] VITALS: BP 120/54; PULSE 65
[2020-02-06 11:03] LABS: Glucose, Whole Blood 110 mg/dL (60-115)
== END 2020-02-06 12:55 | disposition home or self-care (01) ==
PROVIDERS: Emergency Provider Emergency Medicine
DX: R03.1 Nonspecific low blood-pressure reading (principal); I10 Essential (primary) hypertension; E11.9 Type 2 diabetes mellitus without complications; Z79.899 Other long term (current) drug therapy
CPT/HCPCS: 82947; 99283; 99284

== ENCOUNTER 2020-03-03 08:21 | Outpatient (REF) | payer MEDICARE, MEDICAID, SELFPAY ==
--- NOTE | 2020-03-03 08:25 | US_ITS ---
EXAMINATION: US ABDOMEN LIMITED CLINICAL INFORMATION: Cirrhosis of liver. Ascites check. COMPARISON: 12/02/2019 TECHNIQUE: Real-time imaging of the abdomen FINDINGS: There is a large volume of ascites seen throughout the abdomen, greatest in the lower abdomen. US/US abdomen limited IMPRESSION: Large volume ascites.
[2020-03-03 11:25] LABS: Basophils Percent Auto 0.4 % (0-2); Hemoglobin 11.9 g/dl (12.0-16.0); MANUAL DIFF FLAG SCAN; Red Cell Distribution Width 15.9 % (11.0-16.0); SCAN SMEAR FLAG 1
[2020-03-03 11:27] LABS: Eosinophils Absolute Auto 0.1 X10*3/uL (0.0-0.4); Hematocrit 37.8 % (37-47); Imm Gran Abs Auto 0.01 X10*3/uL (0.00-0.03); Imm Gran Pct Auto 0.2 % (0.0-0.4); Lymphocytes Absolute Auto 1.1 X10*3/uL (1.2-4.9); Mean Corpuscular HGB Conc 31.5 g/dl (31.0-35.0); Mean Corpuscular Volume 85.9 fL (80-98); Mean Platelet Volume 12.8 fL (9.4-12.3); Monocytes Absolute Auto 0.4 X10*3/uL (0.1-1.2); Monocytes Percent Auto 8.7 % (2-11); Neutrophils Absolute Auto 3.4 X10*3/uL (2.0-8.3); Neutrophils Percent Auto 66.7 % (45-73); PLT CLUMP 1
[2020-03-03 11:35] LABS: PLT ABN DIST 1
[2020-03-03 11:47] LABS: Alanine Aminotransferase 26 U/L (0-31); Albumin Level 3.4 g/dL (3.5-5.0); Alkaline Phosphatase 105 U/L (39-117); Anion Gap 13 (12-20); Aspartate Amino Transferase 36 U/L (5-31); Bilirubin Total 1.2 mg/dL (0.0-1.0); Blood Urea Nitrogen 20 mg/dL (9-16); Calcium 8.9 mg/dL (8.4-10.2); Carbon Dioxide 28 mmol/L (22-29); Chloride 106 mmol/L (96-108); Estimated Glomerular Filt Rate 55; Glucose Fasting 110 mg/dL (60-99); Potassium 3.8 mmol/l (3.3-5.1); Sodium 143 mmol/L (135-145); Total Protein 6.7 g/dL (6.5-8.0)
[2020-03-03 12:04] LABS: Anion Gap 13 (12-20); Blood Urea Nitrogen 19 mg/dL (9-16); Calcium 8.8 mg/dL (8.4-10.2); Carbon Dioxide 26 mmol/L (22-29); Chloride 107 mmol/L (96-108); Estimated Glomerular Filt Rate 55; Potassium 3.7 mmol/l (3.3-5.1); Sodium 142 mmol/L (135-145)
[2020-03-03 12:50] LABS: Platelet Count 98 X10*3/uL (160-400); SLIDE REVIEW VERIFIED; White Blood Count 5.1 X10*3/uL (4.8-10.8)
[2020-03-03 12:56] LABS: Erythrocyte Sedimentation Rate 37 MM/HR (0-20)
[2020-03-04 11:21] LABS: Alpha Fetoprotein 20.2 ng/mL
== END 2020-03-03 08:22 | disposition home or self-care (01) ==
LOC: HO.HMGCX 08:21
PROVIDERS: Internal Medicine Hypertension Specialist; Absent Provider Internal Medicine Rheumatology; Visit Provider Internal Medicine Gastroenterology
DX: M05.79 Rheumatoid arthritis with rheumatoid factor of multiple sites without organ or systems involvement (principal); I12.9 Hypertensive chronic kidney disease with stage 1 through stage 4 chronic kidney disease, or unspecified chronic kidney disease; N18.30 Chronic kidney disease, stage 3 unspecified; R18.8 Other ascites; K74.60 Unspecified cirrhosis of liver
CPT/HCPCS: 36415; 76705; 80051; 80053; 82105; 82310; 82565; 84520; 85025; 85652; 86140

== ENCOUNTER 2020-03-04 12:04 | Outpatient (REF) | payer MEDICARE, MEDICAID, SELFPAY ==
[2020-03-04 14:27] LABS: Creatinine Urine 32.17 mg/dL; Microalbumin Urine < 5.0 mg/L
== END 2020-03-04 12:05 | disposition home or self-care (01) ==
LOC: HO.LNP 12:04
PROVIDERS: Visit Provider Internal Medicine Hypertension Specialist
DX: I12.9 Hypertensive chronic kidney disease with stage 1 through stage 4 chronic kidney disease, or unspecified chronic kidney disease (principal); N18.30 Chronic kidney disease, stage 3 unspecified
CPT/HCPCS: 82043

== ENCOUNTER 2020-03-09 15:38 | Outpatient (REF) | payer MEDICARE, MEDICAID, SELFPAY ==
--- NOTE | 2020-03-09 15:44 | MM_ITS ---
EXAMINATION: MM SCREENING DIGITAL BREAST TOMOSYNTHESIS, LEFT CLINICAL INFORMATION: Prior history right mastectomy for breast cancer . Due for yearly. COMPARISON: Mammography: 10/09/2018, 09/28/2017, 09/09/2016, 09/05/2016 TECHNIQUE: Digital breast tomosynthesis is performed in both the craniocaudal and mediolateral oblique views along with computer-aided detection (CAD). Synthesized 2D images are generated from the tomosynthesis. Additional exaggerated CC view is provided. FINDINGS: The breasts are heterogeneously dense, which may obscure small masses (ACR BI-RADS breast composition Category c). There are no significant masses, abnormal calcifications, or other abnormalities. The skin contours are smooth. No significant changes. MM/MM tomosynthesis screening LT IMPRESSION: No mammographic evidence of malignancy. ASSESSMENT: BI-RADS 1: Negative RECOMMENDATION: Routine annual mammography screening. This patient's information was entered into a reminder system with a target due date for their next mammogram.
== END 2020-03-09 15:39 | disposition home or self-care (01) ==
LOC: HO.MAMMO 15:38
DX: Z12.31 Encounter for screening mammogram for malignant neoplasm of breast (principal)
CPT/HCPCS: 77067

== ENCOUNTER 2020-03-11 16:41 | Outpatient (REF) | payer MEDICARE, MEDICAID, SELFPAY ==
--- NOTE | 2020-03-11 16:44 | MR_ITS ---
EXAMINATION: MR ABDOMEN WITHOUT AND WITH CONTRAST CLINICAL INFORMATION: Cirrhosis of the liver COMPARISON: Ultrasound from 12/02/2019. Multiple prior CTs, most recently 02/25/2019. TECHNIQUE: MR abdomen was performed without and with use of 10 mL intravenous Gadavist gadolinium contrast. Postcontrast images are performed in multiphase dynamic sequences. Imaging was performed in 3 planes. FINDINGS: LUNG BASES: The visualized lung bases are unremarkable. LIVER, GALLBLADDER, AND BILIARY TREE: Small liver with nodular Contour consistent with the history of cirrhosis. There is a heterogeneously T2 bright lesion centered in segment 8 of the liver. This is low in signal on T1-weighted imaging. The mass measures 5.6 x 5.1 x 5.8 cm. On postcontrast imaging this is heterogeneously arterially enhancing. There is subsequent early washout of the lesion on the more delayed phase. There is an additional area of vague arterial enhancement in the caudate lobe which blends with the surrounding liver on the more delayed imaging. Gallbladder is absent. The hepatic veins are patent. The portal vein is patent. PANCREAS: Unremarkable. SPLEEN: Normal. ADRENAL GLANDS: Normal. KIDNEYS AND URETERS: The kidneys are normal in size, shape, and enhance symmetrically. No hydronephrosis. No perinephric stranding. Multiple bilateral renal cysts. GASTROINTESTINAL TRACT: No bowel obstruction. No ascites or fluid collection. ABDOMINAL WALL: No significant hernia is appreciated. LYMPH NODES: No lymphadenopathy. VASCULAR: Normal caliber aorta. Small varices in the upper abdomen. OSSEOUS STRUCTURES: Marrow signal normal. MR/MR abdomen wo/w con IMPRESSION: Cirrhotic liver. Mass centered in segment 8 of the liver may correspond to the previously seen growing lesion on ultrasound. This is consistent with hepatocellular carcinoma.
== END 2020-03-11 16:42 | disposition home or self-care (01) ==
LOC: HO.MRI 16:41
PROVIDERS: Visit Provider Internal Medicine Gastroenterology
DX: K74.60 Unspecified cirrhosis of liver (principal)
CPT/HCPCS: 74183; A9585

== ENCOUNTER → 2020-03-17 11:38 | Outpatient (BNVA) | payer MEDICARE, MEDICAID, SELFPAY | PROVIDERS: Visit Provider Surgery | DX: Z85.3 Personal history of malignant neoplasm of breast (principal) | CPT/HCPCS: Q3014 ==

== ENCOUNTER 2020-03-25 09:05 | Outpatient (REF) | payer MEDICARE, MEDICAID, SELFPAY ==
[2020-03-25 10:23] LABS: Hemoglobin 11.3 g/dl (12.0-16.0); Mean Corpuscular HGB Conc 31.4 g/dl (31.0-35.0); Mean Corpuscular Hemoglobin 26.4 pg (27.0-33.0); Mean Corpuscular Volume 84.1 fL (80-98); Mean Platelet Volume 12.2 fL (9.4-12.3); Platelet Count 146 X10*3/uL (160-400); Red Blood Count 4.28 X10*6/uL (4.20-5.50); Red Cell Distribution Width 15.6 % (11.0-16.0); White Blood Count 4.9 X10*3/uL (4.8-10.8)
[2020-03-25 10:53] LABS: Alanine Aminotransferase 22 U/L (0-31); Albumin Level 3.3 g/dL (3.5-5.0); Alkaline Phosphatase 116 U/L (39-117); Anion Gap 13 (12-20); Aspartate Amino Transferase 34 U/L (5-31); Bilirubin Total 0.8 mg/dL (0.0-1.0); Blood Urea Nitrogen 25 mg/dL (9-16); C Reactive Protein 6.15 mg/dL (< or = 0.50); Calcium 8.5 mg/dL (8.4-10.2); Carbon Dioxide 27 mmol/L (22-29); Chloride 102 mmol/L (96-108); Estimated Glomerular Filt Rate 52; Glucose Random 103 mg/dL (60-115); Magnesium 2.1 mg/dL (1.6-2.6); Phosphorus 2.9 mg/dL (2.7-4.5); Potassium 4.2 mmol/l (3.3-5.1); Sodium 138 mmol/L (135-145); Total Protein 6.5 g/dL (6.5-8.0)
[2020-03-25 11:45] LABS: Erythrocyte Sedimentation Rate 36 MM/HR (0-20)
[2020-03-30 12:47] LABS: Alpha Fetoprotein 19.8 ng/mL
== END 2020-03-25 09:06 | disposition home or self-care (01) ==
LOC: HO.LAB 09:05
PROVIDERS: Internal Medicine Gastroenterology; Absent Provider Internal Medicine Rheumatology; Visit Provider Internal Medicine Hypertension Specialist
DX: I12.9 Hypertensive chronic kidney disease with stage 1 through stage 4 chronic kidney disease, or unspecified chronic kidney disease (principal); N18.30 Chronic kidney disease, stage 3 unspecified; M05.79 Rheumatoid arthritis with rheumatoid factor of multiple sites without organ or systems involvement
CPT/HCPCS: 36415; 80053; 82105; 83735; 84100; 85027; 85652; 86140

== ENCOUNTER 2020-03-26 08:59 | Outpatient (REF) | payer MEDICARE, MEDICAID, SELFPAY | END 2020-03-26 09:00 | disposition home or self-care (01) | LOC: HO.LAB 08:59 | PROVIDERS: Referring Provider Internal Medicine; Visit Provider Internal Medicine Gastroenterology | DX: Z20.828 Contact with and (suspected) exposure to other viral communicable diseases (principal); K74.60 Unspecified cirrhosis of liver; R18.8 Other ascites; C22.0 Liver cell carcinoma; I85.10 Secondary esophageal varices without bleeding | CPT/HCPCS: C9803; Q3014; U0003 ==

== ENCOUNTER 2020-04-11 07:54 | Outpatient (REF) | payer MEDICARE, MEDICAID, SELFPAY ==
[2020-04-11 08:26] LABS: MANUAL DIFF FLAG NO
[2020-04-11 08:34] LABS: Basophils Percent Auto 0.4 % (0-2); Eosinophils Absolute Auto 0.1 X10*3/uL (0.0-0.4); Eosinophils Percent Auto 1.3 % (0-4); Hematocrit 37.2 % (37-47); Hemoglobin 11.7 g/dl (12.0-16.0); Imm Gran Abs Auto 0.02 X10*3/uL (0.00-0.03); Imm Gran Pct Auto 0.4 % (0.0-0.4); Lymphocytes Absolute Auto 1.4 X10*3/uL (1.2-4.9); Lymphocytes Percent Auto 24.8 % (20-40); Mean Corpuscular HGB Conc 31.5 g/dl (31.0-35.0); Mean Corpuscular Hemoglobin 25.9 pg (27.0-33.0); Mean Corpuscular Volume 82.3 fL (80-98); Mean Platelet Volume 12.1 fL (9.4-12.3); Monocytes Absolute Auto 0.5 X10*3/uL (0.1-1.2); Monocytes Percent Auto 8.3 % (2-11); Neutrophils Absolute Auto 3.5 X10*3/uL (2.0-8.3); Neutrophils Percent Auto 64.8 % (45-73); Platelet Count 142 X10*3/uL (160-400); Red Blood Count 4.52 X10*6/uL (4.20-5.50); Red Cell Distribution Width 15.9 % (11.0-16.0); White Blood Count 5.5 X10*3/uL (4.8-10.8)
[2020-04-11 08:50] LABS: Alanine Aminotransferase 34 U/L (0-31); Albumin Level 3.4 g/dL (3.5-5.0); Alkaline Phosphatase 136 U/L (39-117); Anion Gap 13 (12-20); Aspartate Amino Transferase 45 U/L (5-31); Blood Urea Nitrogen 31 mg/dL (9-16); Carbon Dioxide 28 mmol/L (22-29); Chloride 103 mmol/L (96-108); Estimated Glomerular Filt Rate 46; Glucose Random 121 mg/dL (60-115); Potassium 4.3 mmol/l (3.3-5.1); Sodium 140 mmol/L (135-145); Total Protein 6.9 g/dL (6.5-8.0)
== END 2020-04-11 07:55 | disposition home or self-care (01) ==
LOC: HO.LAB 07:54
PROVIDERS: Visit Provider Internal Medicine Medical Oncology
DX: C22.0 Liver cell carcinoma (principal)
CPT/HCPCS: 36415; 80053; 85025

== ENCOUNTER → 2020-04-20 13:11 | Outpatient (BNVA) | payer MEDICARE, MEDICAID, SELFPAY | PROVIDERS: Visit Provider Internal Medicine Gastroenterology | DX: Z13.89 Encounter for screening for other disorder (principal) | CPT/HCPCS: Q3014 ==

== ENCOUNTER 2020-04-24 | Outpatient (REF) | payer MEDICARE, MEDICAID, SELFPAY ==
[2020-04-30 14:58] LABS: OBS1 NEG (NEG); OBS2 NEG (NEG); OBS3 NEG (NEG)
[2020-04-30 14:59] LABS: OBS Int Ctl Valid YES
== END 2020-04-24 00:01 | disposition home or self-care (01) ==
LOC: HO.LNP
PROVIDERS: Visit Provider Nurse Practitioner Family
DX: D64.9 Anemia, unspecified (principal)
CPT/HCPCS: 82270

== ENCOUNTER 2020-05-25 09:59 | Day surgery (SDC) | payer MEDICARE, MEDICAID, SELFPAY ==
[2020-05-18 18:49] VITALS: BMI 24.0
--- NOTE | 2020-05-22 11:50 | HO.ANESPROP2 ---
Documented by User: Tracy Johnson 05/22/20 11:56 HPI - Anesthesia Eval Consult details Narrative: 84yo F for Upper Endoscopy with banding s/p EGD with banding 12/2019 with MAC: Prop 180, Lido 60 +opioids PMFSH Past Medical History Medical History (Updated 05/22/20 @ 11:56 by Tracy oJhnson) Abrasion Acute cervical sprain Breast cancer Cirrhosis of liver with ascites Contusion Diabetes mellitus Elbow sprain Esophageal varices without bleeding Hand sprain HCC (hepatocellular carcinoma) History of right breast cancer Hx of breast cancer Hx of hemorrhoids Hypercholesterolemia Hypertension Intracranial hemorrhage Knee sprain Osteoporosis Rheumatoid arthritis Seizure disorder Sprain of wrist Thrombocytopenia Family History Family History (Updated 03/26/20 @ 09:03 by Olga Rocha CMA) Father No problems noted. Mother History of heart attack Surgical History Surgical History History of cholecystectomy (~2010) History of hemorrhoidectomy History of liver biopsy (~04/02/19) History of right mastectomy (~1985) Hx of colonoscopy Hx of endoscopy Social History Social History (Updated 04/20/20 @ 13:13 by Olga Rocha CMA) Household Members: Children Housing: Unknown / Unable to assess Alcohol intake: never Smoking Status: Never smoker Second Hand Smoke Exposure: No Use of substances other than those prescribed or required for medical reasons: No Have you been hit, kicked, punched, or otherwise hurt by someone within the past year? If so, by whom?: No Advance Directives: Yes Advance Directives Information Provided: Yes Advance Directives on File: Yes Advance Directives Date on File: 05/19/14 service: No Meds Allergies Allergy/AdvReac Type Severity Reaction Status Date / Time No Known Allergies Allergy Verified 05/25/20 10:40 Home Medications Medication Instructions Recorded Confirmed Type cholecalciferol (vitamin D3) 50 50 mcg PO DAILY 01/15/20 05/18/20 History mcg (2,000 unit) capsule ferrous sulfate 325 mg (65 mg 325 mg PO DAILY 01/15/20 05/18/20 History iron) tablet metformin 500 mg tablet 500 mg PO BID 01/15/20 05/18/20 History oxycodone 5 mg tablet 5 mg PO BID 01/15/20 05/18/20 History simvastatin 20 mg tablet 20 mg PO DAILY 01/15/20 05/18/20 History alendronate 35 mg PO QWEEK 01/28/20 05/18/20 History folic acid 1 mg PO DAILY 01/28/20 05/18/20 History sorafenib [Nexavar] 200 mg PO BID 04/13/20 05/18/20 History bumetanide 1 mg PO DAILY 05/11/20 05/18/20 History Exam Exam Date and Time: May 22, 2020 1150 Height,Weight and Vital Signs: Height 4 ft 11 in Weight 53.977 kg Assessment and Plan Assessment Anesthesia Assessment: Chart Reviewed Documented by User: Mariaa Bustamante 05/25/20 10:41 [facility] Past Medical History Medical History (Updated 05/22/20 @ 11:56 by Tracy Johnson) Abrasion Acute cervical sprain Breast cancer Cirrhosis of liver with ascites Contusion Diabetes mellitus Elbow sprain Esophageal varices without bleeding Hand sprain HCC (hepatocellular carcinoma) History of right breast cancer Hx of breast cancer Hx of hemorrhoids Hypercholesterolemia Hypertension Intracranial hemorrhage Knee sprain Osteoporosis Rheumatoid arthritis Seizure disorder Sprain of wrist Thrombocytopenia Family History Family History (Updated 03/26/20 @ 09:03 by Olga Rocha CMA) Father No problems noted. Mother History of heart attack Surgical History Surgical History History of cholecystectomy (~2010) History of hemorrhoidectomy History of liver biopsy (~04/02/19) History of right mastectomy (~1985) Hx of colonoscopy Hx of endoscopy Social History Social History (Updated 04/20/20 @ 13:13 by Olga Rocha CMA) Household Members: Children Housing: Unknown / Unable to assess Alcohol intake: never Smoking Status: Never smoker Second Hand Smoke Exposure: No Use of substances other than those prescribed or required for medical reasons: No Have you been hit, kicked, punched, or otherwise hurt by someone within the past year? If so, by whom?: No Advance Directives: Yes Advance Directives Information Provided: Yes Advance Directives on File: Yes Advance Directives Date on File: 05/19/14 service: No Meds Allergies Allergy/AdvReac Type Severity Reaction Status Date / Time No Known Allergies Allergy Verified 05/25/20 10:40 Home Medications Medication Instructions Recorded Confirmed Type cholecalciferol (vitamin D3) 50 50 mcg PO DAILY 01/15/20 05/18/20 History mcg (2,000 unit) capsule ferrous sulfate 325 mg (65 mg 325 mg PO DAILY 01/15/20 05/18/20 History iron) tablet metformin 500 mg tablet 500 mg PO BID 01/15/20 05/18/20 History oxycodone 5 mg tablet 5 mg PO BID 01/15/20 05/18/20 History simvastatin 20 mg tablet 20 mg PO DAILY 01/15/20 05/18/20 History alendronate 35 mg PO QWEEK 01/28/20 05/18/20 History folic acid 1 mg PO DAILY 01/28/20 05/18/20 History sorafenib [Nexavar] 200 mg PO BID 04/13/20 05/18/20 History bumetanide 1 mg PO DAILY 05/11/20 05/18/20 History Exam Airway Mallampati Class: II TM Dist: >3cm Heart: RRR Lungs: CTA BL Assessment and Plan Assessment Anesthesia Assessment: Anesthesia Plan Discussed and Chart Reviewed Final Anesthetic Review NPO: Yes (Sip water with unknown meds) ASA Class: III Final Preanesthetic Review: Meds/Allgs Chart Reviewed and Consent Obtained/Reviewed Patient Risk: Intermediate Procedure Risk: Intermediate Anesthetic Plan Anesthetic Plan: MAC: Disposition: Standard PACU
[2020-05-25 10:23] VITALS: BP 129/69; PULSE 68; RESP 18; TEMP 35.7; O2SAT 99
--- NOTE | 2020-05-25 10:31 | P.HPSUR_ITS ---
Pre-Procedural Eval Section A The patient is an INPATIENT: No The History & Physical has been completed within 30 days and I have reviewed it.: No Section B Chief Complaint: esophageal varices without bleeding Details of Present Illness: FU of esophageal varices Relevant Family History (Specify if Yes): No Relevant Social History: None Present Medications: see Short Stay Collaborative assessment Medical History: Significant History (Breast cancer Cirrhosis of liver with ascites Contusion Diabetes mellitus Elbow sprain Esophageal varices without blee ding Hand sprain History of right breast cancer Hx of breast cancer Hx of hemorrhoids Hypercholesterolemia Hypertension Intracranial hemorrhage Knee sprain Liver cirrhosis secondary ) History of Previous Operations: Relevant previous surgery/procedure and date(s) (History of cholecystectomy (~2010) History of hemorrhoidectomy History of liver biopsy (~04/02/19) History of right mastectomy (~1985) Hx of colonoscopy Hx of endoscopy) Allergies: Allergies Allergy/AdvReac Type Severity Reaction Status Date / Time No Known Allergies Allergy Verified 05/18/20 18:49 Review of Systems Sugical H&P ROS: Negative: Constitution, Cardiovascular and Respiratory and Yes, Specify: Gastrointestinal (ascites) Exam Surgical H&P Exam: Normal: Heart, Normal: Lungs and Normal: Extremities and Significant Findings: Abdomen (distended due to ascites) Plan Diagnosis/Plan: Unchanged I have reviewed the history and physical and performed a pertinent physical examination on my patient. No changes have occurred unless specified.
--- NOTE | 2020-05-25 10:31 | PM.OP ---
Brief Operative Note Date of Service: 05/25/20 Pre-op diagnosis: Fu esophageal varices Post-op diagnosis: same Procedure: FLEXIBLE TRANSORAL UPPER GASTROINTESTINAL ENDOSCOPY WITH BAND LIGATION OF ESOPHAGEAL VARICES Consent: Indications for the procedure and potential complications of bleeding, perforation, reaction to medications and missed diagnosis were discussed with the patient with the help of a brokerage purchase and sale clerk and informed consent was obtained. Instrument: Olympus GIF H 190 mid size upper endoscope Monitoring: Vital signs and clinical assessment, continuous EKG monitoring, Pulse oximetry, Carbon Dioxide monitoring and blood pressure monitoring were done throughout the procedure. Procedure: The patient was placed in the left lateral decubitis position and pre-procedure medications were administered and a bite block was placed. The endoscope was inserted into the mouth and advanced under direct vision to the third part of duodenum. A careful inspection was made as the upper endoscope was withdrawn including a retroflexed examination of the proximal stomach; Findings and interventions are described below. Findings: Esophagus: Grade 2-3 four column varices from 30 to 36 cms. GE junction at 36 cms. No esophagitis or Michelle?s. Status post Band ligation x 3. Stomach: Moderate portal hypertensive gastropathy. No gastric varices noted and grade 2 flap valve on retroflexed examination of the cardia. Duodenum: Normal bulb and descending duodenum Intervention: Endoscope was removed and loaded with Convertigo View Super 7 and band ligation x 3 was performed with flattening of varices. Impression and Post Procedure Diagnosis: Endoscopy Findings: ESOPHAGUS: Grade 2-3 four column varices from 30 to 36 cms. GE junction at 36 cms. No esophagitis or Michelle?s. Status post Band ligation x 3. STOMACH: Moderate portal gastropathy Plan: Patient has an appointment on 06/08/20 in the GI Clinic with Vargas Zhou M.D. Consider repeat endoscopy in 6 months if patient remains in stable health Above findings were reviewed with the patient with the help of a brokerage purchase and sale clerk. Surgeon: Vargas Zhou MD Anesthesia: MAC (DR Castellon) Estimated blood loss (mL): 0 Pathology: none sent Condition: stable Disposition: PACU
[2020-05-25] MEDS: Lactated Ringers 1,000 ML 20 ML IVCONT (10:39)
[2020-05-25 10:41] LABS: Glucose, Whole Blood 82 mg/dL (60-115)
[2020-05-25 11:08] VITALS: BP 96/54; PULSE 65; RESP 14; TEMP 36.2; O2SAT 97
[2020-05-25 11:23] VITALS: BP 95/57; PULSE 66; RESP 18; O2SAT 98
[2020-05-25 11:38] VITALS: BP 128/66; PULSE 60; RESP 18; O2SAT 100
--- NOTE | 2020-05-25 11:49 | PC.NURSE ---
1130 START PO SWALLOWS WITHOUT ISSUES DR NYE RETUN TO BS WITH INTERPRETTOR TO DISCUSS EXAM
[2020-05-25 11:53] VITALS: BP 129/78; PULSE 61; RESP 18; O2SAT 99
--- NOTE | 2020-05-25 12:35 | HO.POSTANES ---
Post Anesthesia Evaluation Post Anesthesia Evaluation Vital Signs: Vital Signs Temp Pulse Resp BP Pulse Ox 05/25/20 11:53 97.2 F 61 18 129/78 99 05/25/20 11:38 60 18 128/66 100 05/25/20 11:23 66 18 95/57 L 98 05/25/20 11:08 97.2 F 65 14 96/54 L 97 05/25/20 10:23 96.2 F L 68 18 129/69 99 Anesthesia: Monitored Mental Status: Awake Pain Control: Satisfactory Nausea/Vomiting: None Hydration: Adequate Anesthesia-Related Issues: No Anes. Related Issues
== END 2020-05-25 13:00 | disposition home or self-care (01) ==
PROVIDERS: Visit Provider Internal Medicine Gastroenterology
PROC: 0DJ08ZZ Inspection of Upper Intestinal Tract, Via Natural or Artificial Opening Endoscopic (ICD-10-PCS; CPT 43235; principal; 2020-05-25 11:00)
DX: I85.00 Esophageal varices without bleeding (principal); K76.6 Portal hypertension; K31.89 Other diseases of stomach and duodenum; E11.9 Type 2 diabetes mellitus without complications; I10 Essential (primary) hypertension; Z79.84 Long term (current) use of oral hypoglycemic drugs; Z79.899 Other long term (current) drug therapy
CPT/HCPCS: 43244; 82947

== ENCOUNTER → 2020-06-08 09:31 | Outpatient (BNVA) | payer MEDICARE, MEDICAID, SELFPAY | PROVIDERS: Visit Provider Internal Medicine Gastroenterology | CPT/HCPCS: Q3014 ==

== ENCOUNTER 2020-06-16 15:40 | Outpatient (RCR) | payer MEDICARE, MEDICAID, SELFPAY ==
[2020-03-27 13:05] VITALS: BMI 26.2
[2020-03-27 13:08] VITALS: BP 139/63; PULSE 63; RESP 18; TEMP 36.1; O2SAT 97
--- NOTE | 2020-03-27 14:39 | MHC.HEMONC ---
IR CONSULT w Dr. Copeland - Per Dr. Amato she spoke w Dr. Copeland via text. Pt is scheduled w him for Monday at 9am. The pt's family member was informed by Dr. Amato of the address and appt. time appt. She states the family member took a picture of her text message with Dr. Copeland re; appt information, address, and time. All pertinent info was faxed to the number Dr. Copeland provided - [phone] and another fax # [phone]. For reference, Dr. Copeland's phone # [phone]. The pt will be seeing him at [address] [facility], [address] (as mentioned above, the pt's family member was notified by Dr. Amato herself and was all set).
--- NOTE | 2020-03-27 14:56 | MHC.HEMONCSW ---
PT IS AN 84 YEAR OLD RESIDING WITH SON, HEALTH [employer]ARE [employer]. SHE IS INDEPENDENT, ABLE TO MAKE NEEDS KNOWN IN [place]. DIAGNOSIS IS HEPATIC CARCINOMA. BEING REFERRED TO A SPECIALIST. HRIS SPECIALIST WAS PRESENT, PATIENT VERBALIZED UNDERSTANDING OF MEETING. SHE RECEIVED A PERSONAL CARE HOMEMAKER THRU [facility] TWICE PER WEEK. HOBBIES INCLUDE CROSSWORD PUZZLES, TO KEEP HER MIND SHARP DENIES PAST/PRESENT SUBSTANCE ABUSE AND MENTAL ILLNESS. AMBULATES WITH A WHEELED WALKER. REPORTS COPING FAIRLY WELL BUT CONCERNED ABOUT WHAT, IF ANY, TREATMENTS ARE AVAILABLE. RESOURCES, GUIDANCE, EDUCATION AND SUPPORT PROVIDED. SHE IS AWARE OF MY AVAILABILITY..
--- NOTE | 2020-03-27 16:53 | PM.HEMONCCN ---
Subjective - Subjective Chief complaint: Consult for HCC. Patient: new to practice Consult date: 03/27/20 Requesting Physician: MAY NYE Primary Care Provider: Dom Maynard MD Medical Summary: DIAGNOSIS: HCC. 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 She denies history of alcohol nor hepatitis. She has had abdominal distension for about 4 months now. Her weight has gone up. On December she fell and hit her head. She developed an extra-axial hemorrhage. She then had an episode of aphasia. That resolved. She had seizures and was started on Keppra. She then developed lower extremity edema that has resolved with diuretics. Ultrasound of the abdomen on 03/03 revealed: Ascites. MRI of the abdomen revealed: Cirrhotic liver. Mass centered in segment 8 of the liver may correspond to the previously seen growing lesion on ultrasound. This is consistent with hepatocellular carcinoma. AFP 11/19: 8.2. AFP 03/25: 19.8. Review of Systems - Constitutional Reports system reviewed and no additional complaints, except as documented, Reports anorexia, Reports fatigue, Reports lack of energy, Reports malaise, Reports weight gain - Eyes Reports system reviewed and no additional complaints, except as documented, Denies blurry vision - ENT Reports system reviewed and no additional complaints, except as documented - Cardiovascular Reports system reviewed and no additional complaints, except as documented, Denies chest pain at rest - Respiratory Reports no additional respiratory complaints, Denies chest congestion - Gastrointestinal Reports system reviewed and no additional complaints, except as documented, Reports abdominal pain, Reports belching, Reports bloating, Reports change in bowel habits, Reports constipation, Reports feeling full early, Reports nausea - Genitourinary Reports no additional female genitourinary complaints, Denies abnormal periods - Musculoskeletal Reports system reviewed and no additional complaints, except as documented, Reports abnormal walking - Integumentary/Breasts Skin/Breast: Reports no additional skin complaints, Denies bleeding lesions - Neurologic Reports system reviewed and no additional complaints, except as documented - Psychiatric Reports system reviewed and no additional complaints, except as documented, Reports anxiety - Endocrine Reports no additional endocrine complaints, Reports cold intolerance - Hematologic/Lymphatic Reports system reviewed and no additional complaints, except as documented, Reports easy bleeding, Reports easy bruising - Allergic/Immunologic Reports system reviewed and no additional complaints, except as documented [facility] Medical History: Medical History (This Medical Record has been edited. 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 Mother History of heart attack Surgical History: Surgical History (Last Updated 03/26/20 @ 09:02 by Olga Rocha MA) History of cholecystectomy Onset Date: ~2010 History of hemorrhoidectomy History of liver biopsy Onset Date: ~04/02/19 History of right mastectomy Onset Date: ~1985 Hx of colonoscopy Hx of endoscopy Home Medications and Allergies Home Medications Medication Instructions Recorded Confirmed Type cholecalciferol (vitamin D3) 50 50 mcg PO DAILY 01/15/20 03/27/20 History mcg (2,000 unit) capsule ferrous sulfate 325 mg (65 mg 325 mg PO DAILY 01/15/20 03/27/20 History iron) tablet metformin 500 mg tablet 500 mg PO BID 01/15/20 03/27/20 History oxycodone 5 mg tablet 5 mg PO BID 01/15/20 03/27/20 History simvastatin 20 mg tablet 20 mg PO DAILY 01/15/20 03/27/20 History alendronate 35 mg PO QWEEK 01/28/20 03/27/20 History ofkjxicqkg-bqowrgdztkydw-jmtu 1 tab PO Q6H PRN 01/28/20 03/27/20 History folic acid 1 mg PO DAILY 01/28/20 03/27/20 History Allergies Allergy/AdvReac Type Severity Reaction Status Date / Time No Known Allergies Allergy Verified 03/17/20 11:55 Physical Exam Vital signs: Vital Signs Temp 97.0 F 03/27/20 13:08 Pulse 63 03/27/20 13:08 Resp 18 03/27/20 13:08 BP 139/63 03/27/20 13:08 Pulse Ox 97 03/27/20 13:08 Intake & Output 03/26/20 03/27/20 03/27/20 18:59 06:59 18:59 Other: Weight 59 kg Weight 59 kg - Constitutional Present: mild distress - Routine HEENT Exam Head: Present: normal inspection ENT: Present: mucous membranes moist - Routine Neck Exam Present: supple - Routine Respiratory Exam Present: CTAB - Routine Cardiovascular Exam Cardiovascular: Present: RRR, S1, S2 - Routine Abdominal Exam Present: diminished bowel sounds, distended, firm, tenderness - Routine Rectal Exam Patient deferred: digital exam - Routine Extremities Exam Present: nontender - Routine Skin Exam Present: intact - Routine Neurological Exam Present: alert, oriented X3 - Detailed Neurological Exam: Coma Scale Eye Opening: Spontaneous (4) Verbal Response: Oriented (5) - Routine Psychiatric Exam Present: depressed Assessment and Plan (1) HCC (hepatocellular carcinoma) Status: Acute This is an unfortunate 84 year old lady with H/O CIRRHOSIS, who now has been diagnosed with HCC. DATA BASE: CBC: WBC 4.9, HGB 11.3, HCT 36, PLT 146. CMP: Lytes: WNL, BUN25, CRT1.02, GLU 103, ALB 3.9, SARAH 8.5. LFTs:0.2/116/34/22. AFP: 20. U/S of abdomen 03/03: There is a large volume of ascites seen throughout the abdomen, greatest in the lower abdomen. Large volume ascites. MRI of abdomen: consistent with the history of cirrhosis. There is a heterogeneously T2 bright lesion centered in segment 8 of the liver. This is low in signal on T1-weighted imaging. The mass measures 5.6 x 5.1 x 5.8 cm. On postcontrast imaging this is heterogeneously arterially enhancing. There is subsequent early washout of the lesion on the more delayed phase. There is an additional area of vague arterial enhancement in the caudate lobe which blends with the surrounding liver on the more delayed imaging. Gallbladder is absent. The hepatic veins are patent. The portal vein is patent. PANCREAS: Unremarkable. SPLEEN: Normal. ADRENAL GLANDS: Normal. KIDNEYS AND URETERS: The kidneys are normal in size, shape, and enhance symmetrically. No hydronephrosis. No perinephric stranding. Multiple bilateral renal cysts. GASTROINTESTINAL TRACT: No bowel obstruction. No ascites or fluid collection. ABDOMINAL WALL: No significant hernia is appreciated. LYMPH NODES: No lymphadenopathy. VASCULAR: Normal caliber aorta. Small varices in the upper abdomen. OSSEOUS STRUCTURES: Marrow signal normal. IMPRESSION: Cirrhotic liver. Mass centered in segment 8 of the liver may correspond to the previously seen growing lesion on ultrasound. This is consistent with hepatocellular carcinoma. PLAN: I got an opinion from IR at [facility], Dr. Medellin, to see if intra hepatic treatment would be an option. His feeling is to start with a less invasive option, use Sorafanib, and assess tolerability. Could save local regional therapy for later, based upon her response and her physical strength. I will arrange for the sorafenib. Can start her on a lower dose and increase as tolerated.. All their questions were answered to their satisfaction. She will return in a couple of weeks for a follow-up visit. Thank you, CC: Dr. Medellin. Dr. Nye. Dr. Maynard. (2) HCC (hepatocellular carcinoma) Status: Acute
--- NOTE | 2020-04-02 17:08 | MHC.HEMONC ---
Addendum entered by Norma Bowles RN 04/03/20 10:40: Alida Ornelas out of office (Monday). Per Dr. Amato, Mariaa, Med. Asst was given Rx and will get attempt to get approval. Mariaa will inform Alida when she returns to the office. Original Note: [place] PLAN: Per Dr. Amato, pt's son Carlo was called to inform him that the treatment medication is pending approval. I spoke w him over the phone to inform. He understood and agrees to the POC. Alida Hopkins to start PA process. Copied below from Dr. Amato's note. PLAN: I got an opinion from IR at [facility], Dr. Medellin, to see if intra hepatic treatment would be an option. His feeling is to start with a less invasive option, use Sorafanib, and assess tolerability. Could save local regional therapy for later, based upon her response and her physical strength. I will arrange for the sorafenib. Can start her on a lower dose and increase as tolerated.. All their questions were answered to their satisfaction. She will return in a couple of weeks for a follow-up visit. Thank you,
--- NOTE | 2020-04-03 14:55 | MHC.HEMONCMA ---
Spoke with Sherin at [facility]. She states that even though she has Medicare, we should still do PA. She filled out the form and emailed it to me to have Dr Amato sign and date, and then I have to fax it to [facility]. I also faxed the rx to [facility] pharmacy per Sherin, she states she called them and let them know. She will let me know when everything goes through and the med is approved to be sent to patient. RX sent. PA form signed and sent with last note.
--- NOTE | 2020-04-06 16:21 | MHC.HEMONC ---
Pt insurance called to ask pt dx. She said Sorafenib would be approved.
--- NOTE | 2020-04-07 10:28 | MHC.HEMONCMA ---
Sherin from [facility] called and stated that the medication Nexivar (Sorafenib) was approved, we should be getting an approval letter faxed over soon.
--- NOTE | 2020-04-13 15:25 | P.PNHO_ITS ---
Medical Summary - Medical Summary Date of Service: 04/19/20 Chief complaint: F/U for HCC. Medical Summary: DIAGNOSIS: HCC. CURRENT THERAPY: Sorafanib started yesterday. Interval History Interval history: Duyen Webber is a pleasant unfortunate 84 year old lady, here for a follow up. She tells me, she started the Sorafanib, on monday. This morning, she noted that her stool was black in color. She denies abdominal pain, N/V, ht burn nor indigestion. She denies constipation. She takes miralax. No fever nor chills. Energy level is somewhat low. Denies any rashes. No CP/SOB. Her apetite is good. Weight stable. She is in good spirits. Rest of the ROS is unremarkable. Previous History: She has a previous history of decompensated cirrhosis of the liver, NAFLD versus drug-induced versus autoimmune. She denies history of alcohol nor hepatitis. She has had abdominal distension for about 4 months now. Her weight has gone up. On December she fell and hit her head. She developed an extra-axial hemorrhage. She then had an episode of aphasia. That resolved. She had seizures and was started on Keppra. She then developed lower extremity edema that has resolved with diuretics. Ultrasound of the abdomen on 03/03 revealed: Ascites. MRI of the abdomen revealed: Cirrhotic liver. Mass centered in segment 8 of the liver may correspond to the previously seen growing lesion on ultrasound. This is consistent with Hepatocellular Carcinoma. AFP 11/19: 8.2. AFP 03/25: 19.8. Review of Systems - Constitutional Reports system reviewed and no additional complaints, except as documented, Reports fatigue, Reports lack of energy, Reports weakness, Denies fever(s) - Eyes Reports system reviewed and no additional complaints, except as documented, Reports blurry vision - ENT Reports system reviewed and no additional complaints, except as documented - Cardiovascular Reports system reviewed and no additional complaints, except as documented, Denies chest pain at rest - Respiratory Reports no additional respiratory complaints, Denies chest congestion - Gastrointestinal Reports system reviewed and no additional complaints, except as documented, Reports black, tarry stools, Denies abdominal pain, Denies change in bowel habits - Genitourinary Reports no additional female genitourinary complaints - Musculoskeletal Reports system reviewed and no additional complaints, except as documented, Denies back pain - Integumentary/Breasts Skin/Breast: Reports no additional skin complaints, Denies bleeding lesions - Neurologic Reports system reviewed and no additional complaints, except as documented, Reports abnormal gait - Psychiatric Reports system reviewed and no additional complaints, except as documented, Denies anxiety - Endocrine Reports no additional endocrine complaints, Denies excessive sweating - Hematologic/Lymphatic Reports system reviewed and no additional complaints, except as documented, Denies easy bleeding - Allergic/Immunologic Reports system reviewed and no additional complaints, except as documented [facility] Medical History: Medical History (This Medical Record has been edited. 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 Mother History of heart attack Surgical History: Surgical History (Last Updated 03/26/20 @ 09:02 by Olga Rocha CMA) History of cholecystectomy Onset Date: ~2010 History of hemorrhoidectomy History of liver biopsy Onset Date: ~04/02/19 History of right mastectomy Onset Date: ~1985 Hx of colonoscopy Hx of endoscopy Home Medications and Allergies Home Medications Medication Instructions Recorded Confirmed Type cholecalciferol (vitamin D3) 50 50 mcg PO DAILY 01/15/20 03/27/20 History mcg (2,000 unit) capsule ferrous sulfate 325 mg (65 mg 325 mg PO DAILY 01/15/20 03/27/20 History iron) tablet metformin 500 mg tablet 500 mg PO BID 01/15/20 03/27/20 History oxycodone 5 mg tablet 5 mg PO BID 01/15/20 03/27/20 History simvastatin 20 mg tablet 20 mg PO DAILY 01/15/20 03/27/20 History alendronate 35 mg PO QWEEK 01/28/20 03/27/20 History folic acid 1 mg PO DAILY 01/28/20 03/27/20 History sorafenib [Nexavar] 200 mg PO BID 04/13/20 04/13/20 History Allergies Allergy/AdvReac Type Severity Reaction Status Date / Time No Known Allergies Allergy Verified 03/17/20 11:55 Exam Vital signs: Vital Signs Temp 97.0 F 03/27/20 13:08 Pulse 63 03/27/20 13:08 Resp 18 03/27/20 13:08 BP 139/63 03/27/20 13:08 Pulse Ox 97 03/27/20 13:08 Weight 59 kg Body Mass Index 26.2 - Constitutional Present: mild distress - Routine HEENT Exam Head: Present: normal inspection Eye: Present: normal appearance ENT: Present: mucous membranes moist - Routine Neck Exam Present: full ROM - Routine Respiratory Exam Present: CTAB - Routine Cardiovascular Exam Cardiovascular: Present: RRR, S1, S2 - Routine Abdominal Exam Present: diminished bowel sounds, distended, firm, tenderness - Routine Rectal Exam Patient deferred: digital exam - Routine Extremities Exam Present: nontender - Routine Back/Spine/Pelvis Exam Back/Spine: Present: full ROM - Routine Skin Exam Present: intact - Routine Neurological Exam Present: alert, oriented X3 - Detailed Neurological Exam: Coma Scale Eye Opening: Spontaneous (4) - Routine Psychiatric Exam Present: normal affect Data - Labs Labs: 03/27/20 13:35 Add Laboratory Test Routine Progress Note: A/P (1) HCC (hepatocellular carcinoma) Status: Acute Assessment and plan: This is an unfortunate 84 year old lady with H/O CIRRHOSIS, who now has been diagnosed with HCC. DATA BASE from 04/11: CBC: WBC 5.5, HGB 11.7, HCT 37.2, PLT 142. CMP: Lytes: WNL, BUN 31, LOCKSTITCH BACK MAKER 1.1, GLU 110, ALB 3.9, SARAH 9.0. LFTs:1. 0/136/45/34. AFP: 20. U/S of abdomen 03/03: There is a large volume of ascites seen throughout the abdomen, greatest in the lower abdomen. Large volume ascites. MRI of abdomen: consistent with the history of cirrhosis. There is a heterogeneously T2 bright lesion centered in segment 8 of the liver. This is low in signal on T1-weighted imaging. The mass measures 5.6 x 5.1 x 5.8 cm. On postcontrast imaging this is heterogeneously arterially enhancing. There is subsequent early washout of the lesion on the more delayed phase. There is an additional area of vague arterial enhancement in the caudate lobe which blends with the surrounding liver on the more delayed imaging. Gallbladder is absent. The hepatic veins are patent. The portal vein is patent. PANCREAS: Unremarkable. SPLEEN: Normal. ADRENAL GLANDS: Normal. KIDNEYS AND URETERS: The kidneys are normal in size, shape, and enhance symmetrically. No hydronephrosis. No perinephric stranding. Multiple bilateral renal cysts. GASTROINTESTINAL TRACT: No bowel obstruction. No ascites or fluid collection. ABDOMINAL WALL: No significant hernia is appreciated. LYMPH NODES: No lymphadenopathy. VASCULAR: Normal caliber aorta. Small varices in the upper abdomen. OSSEOUS STRUCTURES: Marrow signal normal. IMPRESSION: Cirrhotic liver. Mass centered in segment 8 of the liver may correspond to the previously seen growing lesion on ultrasound. This is consistent with hepatocellular carcinoma. I got an opinion from IR at [facility] [place], Dr. Medellin, to see if intra hepatic treatment would be an option. His feeling is to start with a less invasive option, Use Sorafanib, and assess tolerability. Could save local regional therapy for later, based upon her response and her physical strength. I arranged for the Sorafenib. Started her on a lower dose, to increase as tolerated.. She noted dark stools. PLAN: I will check stool for gauaic. If positive will refer to GI. She will continue on the Sorafanib. The son will keep me posted, about her progress. All their questions were answered to their satisfaction. She will return for weekly labs and in a couple of weeks for a follow-up visit. Thank you, CC: Dr. Medellin. Dr. Zhou. Dr. Maynard. (2) HCC (hepatocellular carcinoma) Status: Acute - Time Spent With Patient Total time spent is greater than 50% in coordination of care (as documented) at patient's floor/unit and/or counseling patient: 25 - 35 minutes
[2020-04-13 15:37] VITALS: BP 139/80; PULSE 83; RESP 28; TEMP 37.1; O2SAT 97; BMI 25.7
--- NOTE | 2020-04-13 16:31 | MHC.HEMONC ---
Patient here for follow-up. Tyron used for in-house interperter. Clinical summary updated with nurse. Provider seen patient. Follow-up told to patient via the phone and mailed. Patient will return next week for labs.
[2020-04-20 08:45] LABS: MANUAL DIFF FLAG NO
[2020-04-20 09:08] LABS: Basophils Percent Auto 0.5 % (0-2); Eosinophils Absolute Auto 0.1 X10*3/uL (0.0-0.4); Eosinophils Percent Auto 1.2 % (0-4); Hematocrit 43.1 % (37-47); Hemoglobin 13.5 g/dl (12.0-16.0); Imm Gran Abs Auto 0.02 X10*3/uL (0.00-0.03); Imm Gran Pct Auto 0.3 % (0.0-0.4); Lymphocytes Absolute Auto 1.1 X10*3/uL (1.2-4.9); Lymphocytes Percent Auto 16.4 % (20-40); Mean Corpuscular HGB Conc 31.3 g/dl (31.0-35.0); Mean Corpuscular Hemoglobin 25.6 pg (27.0-33.0); Mean Corpuscular Volume 81.8 fL (80-98); Mean Platelet Volume 11.3 fL (9.4-12.3); Monocytes Absolute Auto 0.4 X10*3/uL (0.1-1.2); Monocytes Percent Auto 6.5 % (2-11); Neutrophils Percent Auto 75.1 % (45-73); Platelet Count 164 X10*3/uL (160-400); Red Blood Count 5.27 X10*6/uL (4.20-5.50); White Blood Count 6.7 X10*3/uL (4.8-10.8)
[2020-04-20 09:35] LABS: Alanine Aminotransferase 36 U/L (0-31); Albumin Level 3.5 g/dL (3.5-5.0); Alkaline Phosphatase 126 U/L (39-117); Anion Gap 15 (12-20); Aspartate Amino Transferase 48 U/L (5-31); Bilirubin Total 1.2 mg/dL (0.0-1.0); Blood Urea Nitrogen 28 mg/dL (9-16); Calcium 8.4 mg/dL (8.4-10.2); Carbon Dioxide 24 mmol/L (22-29); Chloride 104 mmol/L (96-108); Creatinine Clr Calc Pharmacy 33.2; Estimated Glomerular Filt Rate 55; Glucose Random 111 mg/dL (60-115); Potassium 4.2 mmol/l (3.3-5.1); Sodium 139 mmol/L (135-145); Total Protein 7.1 g/dL (6.5-8.0)
--- NOTE | 2020-05-11 15:35 | PM.HEMONCPN ---
Medical Summary - Medical Summary Date of Service: 05/11/20 Medical Summary: DIAGNOSIS: HCC. CURRENT THERAPY: Sorafanib started, a month ago. Interval History Interval history: Duyen Webber is a pleasant unfortunate 84 year old lady, here for a follow up. She tells me, she started the Sorafanib, about a month ago. She is tolerating it quite well so far. No CP/SOB. She has noticed a discoid rash on her left leg and a dorsum of right foot. This just appeared about a week ago. She denies much pruritus. Her energy level is somewhat low. She gets tired when she walks. However she is trying to go and down the stairs to exercise. She denies abdominal pain nausea vomiting heartburn or indigestion. She denies constipation. She takes miralax. No fever nor chills. Her apetite is good. Weight stable. She is in good spirits. Rest of the ROS is unremarkable. Previous History: She has a previous history of decompensated cirrhosis of the liver, NAFLD versus drug-induced versus autoimmune. She denies history of alcohol nor hepatitis. She has had abdominal distension for about 4 months now. Her weight has gone up. On December she fell and hit her head. She developed an extra-axial hemorrhage. She then had an episode of aphasia. That resolved. She had seizures and was started on Keppra. She then developed lower extremity edema that has resolved with diuretics. Ultrasound of the abdomen on 03/03 revealed: Ascites. MRI of the abdomen revealed: Cirrhotic liver. Mass centered in segment 8 of the liver may correspond to the previously seen growing lesion on ultrasound. This is consistent with Hepatocellular Carcinoma. AFP 11/19: 8.2. AFP 03/25: 19.8. Review of Systems - Constitutional Reports no additional constitutional complaints, Reports lack of energy - Eyes Reports no additional eye complaints, Denies blurry vision - ENT Reports no additional ear, nose, mouth, and throat complaints - Cardiovascular Reports no additional cardiovascular complaints, Denies chest pain at rest - Respiratory Reports no additional respiratory complaints, Denies chest congestion - Gastrointestinal Reports no additional gastrointestinal complaints, Denies abdominal pain, Denies bright, red blood in stools, Denies change in bowel habits - Genitourinary Reports no additional female genitourinary complaints - Musculoskeletal Reports no additional musculoskeletal complaints, Denies abnormal walking - Integumentary/Breasts Skin/Breast: Reports no additional skin complaints, Denies bleeding lesions - Neurologic Reports no additional neurologic complaints, Reports abnormal gait, Reports weakness - Psychiatric Reports no additional psychiatric complaints, Denies abnormal sleep pattern - Endocrine Reports no additional endocrine complaints, Denies cold intolerance - Hematologic/Lymphatic Reports no additional hematologic/lymphatic complaints, Denies easy bleeding - Allergic/Immunologic Reports no additional allergic/immunologic complaints, Denies GI upset with certain foods PMFSH Medical History: Medical History (This Medical Record has been edited. 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 Mother History of heart attack Surgical History: Surgical History (Last Updated 03/26/20 @ 09:02 by Olga Rocha CMA) History of cholecystectomy Onset Date: ~2010 History of hemorrhoidectomy History of liver biopsy Onset Date: ~04/02/19 History of right mastectomy Onset Date: ~1985 Hx of colonoscopy Hx of endoscopy Smoking status: Never smoker Second hand tobacco smoke exposure: No Home Medications and Allergies Home Medications Medication Instructions Recorded Confirmed Type cholecalciferol (vitamin D3) 50 50 mcg PO DAILY 01/15/20 05/11/20 History mcg (2,000 unit) capsule ferrous sulfate 325 mg (65 mg 325 mg PO DAILY 01/15/20 05/11/20 History iron) tablet metformin 500 mg tablet 500 mg PO BID 01/15/20 05/11/20 History oxycodone 5 mg tablet 5 mg PO BID 01/15/20 05/11/20 History simvastatin 20 mg tablet 20 mg PO DAILY 01/15/20 05/11/20 History alendronate 35 mg PO QWEEK 01/28/20 05/11/20 History folic acid 1 mg PO DAILY 01/28/20 05/11/20 History sorafenib [Nexavar] 200 mg PO BID 04/13/20 05/11/20 History bumetanide 1 mg PO DAILY 05/11/20 05/11/20 History Allergies Allergy/AdvReac Type Severity Reaction Status Date / Time No Known Allergies Allergy Verified 03/17/20 11:55 Exam Vital signs: Vital Signs Temp 98.8 F 04/13/20 15:37 Pulse 83 04/13/20 15:37 Resp 28 H 04/13/20 15:37 BP 139/80 04/13/20 15:37 Pulse Ox 97 04/13/20 15:37 Weight 57.9 kg Body Mass Index 25.7 - Constitutional Present: mild distress - Routine HEENT Exam Head: Present: normal inspection - Routine Neck Exam Present: full ROM - Routine Respiratory Exam Present: CTAB - Routine Cardiovascular Exam Cardiovascular: Present: RRR, S1, S2 - Routine Abdominal Exam Present: diminished bowel sounds, distended, firm, tenderness - Routine Rectal Exam Patient deferred: digital exam - Routine Extremities Exam Present: nontender - Routine Back/Spine/Pelvis Exam Back/Spine: Present: full ROM - Routine Skin Exam Present: intact - Routine Neurological Exam Present: alert, oriented X3 - Detailed Neurological Exam: Coma Scale Eye Opening: Spontaneous (4) - Routine Psychiatric Exam Present: normal affect Data - Labs CBC & Chem 7: 05/11/20 15:40 05/11/20 15:40 Labs: 03/27/20 13:35 Add Laboratory Test Routine 04/20/20 [id number] Routine 04/20/20 08:42 CMP [Comprehensive Met. Panel] Routine Complete Blood Count Auto Diff Routine Laboratory Last Values WBC 6.7 X10*3/uL (4.8-10.8) 04/20/20 08:42 RBC 5.27 X10*6/uL (4.20-5.50) 04/20/20 08:42 Hgb 13.5 g/dl (12.0-16.0) 04/20/20 08:42 Hct 43.1 % (37-47) 04/20/20 08:42 MCV 81.8 fL (80-98) 04/20/20 08:42 MCH 25.6 pg (27.0-33.0) L 04/20/20 08:42 MCHC 31.3 g/dl (31.0-35.0) 04/20/20 08:42 RDW 16.0 % (11.0-16.0) 04/20/20 08:42 Plt Count 164 X10*3/uL (160-400) 04/20/20 08:42 MPV 11.3 fL (9.4-12.3) 04/20/20 08:42 Immature Gran % (Auto) 0.3 % (0.0-0.4) 04/20/20 08:42 Neut % (Auto) 75.1 % (45-73) H 04/20/20 08:42 Lymph % (Auto) 16.4 % (20-40) L 04/20/20 08:42 Craven % (Auto) 6.5 % (2-11) 04/20/20 08:42 Eos % (Auto) 1.2 % (0-4) 04/20/20 08:42 Baso % (Auto) 0.5 % (0-2) 04/20/20 08:42 Lymph # (Auto) 1.1 X10*3/uL (1.2-4.9) L 04/20/20 08:42 Craven # (Auto) 0.4 X10*3/uL (0.1-1.2) 04/20/20 08:42 Eos # (Auto) 0.1 X10*3/uL (0.0-0.4) 04/20/20 08:42 Baso # (Auto) 0.0 X10*3/uL (0.0-0.2) 04/20/20 08:42 Abs Immat Gran (auto) 0.02 X10*3/uL (0.00-0.03) 04/20/20 08:42 Absolute Neuts (auto) 5.0 X10*3/uL (2.0-8.3) 04/20/20 08:42 Absolute Nucleated RBC 0.000 X10*3/uL (0.0-0.012) 04/20/20 08:42 Nucleated RBC % (auto) 0.0 /100WBC (0.0-0.2) 04/20/20 08:42 Sodium 139 mmol/L (135-145) 04/20/20 08:42 Potassium 4.2 mmol/l (3.3-5.1) 04/20/20 08:42 Chloride 104 mmol/L (96-108) 04/20/20 08:42 Carbon Dioxide 24 mmol/L (22-29) 04/20/20 08:42 Anion Gap 15 (12-20) 04/20/20 08:42 BUN 28 mg/dL (9-16) H 04/20/20 08:42 Creatinine 0.96 mg/dL (0.5-1.4) 04/20/20 08:42 Estim Creat Clear Calc 33.2 04/20/20 08:42 Estimated GFR 55 04/20/20 08:42 Random Glucose 111 mg/dL (60-115) 04/20/20 08:42 Calcium 8.4 mg/dL (8.4-10.2) D 04/20/20 08:42 Total Bilirubin 1.2 mg/dL (0.0-1.0) H 04/20/20 08:42 AST 48 U/L (5-31) H 04/20/20 08:42 ALT 36 U/L (0-31) H 04/20/20 08:42 Alkaline Phosphatase 126 U/L (39-117) H 04/20/20 08:42 Total Protein 7.1 g/dL (6.5-8.0) 04/20/20 08:42 Albumin 3.5 g/dL (3.5-5.0) 04/20/20 08:42 Stool Collect Date 04/1404/20/20 Unknown Stool Occult Blood TNP 04/20/20 Unknown Stool 2 Collect Date 04/1404/20/20 Unknown Stool Occult Blood #2 TNP 04/20/20 Unknown Stool 3 Collect Date 04/1404/20/20 Unknown Stool Occult Blood #3 TNP 04/20/20 Unknown Progress Note: A/P (1) HCC (hepatocellular carcinoma) Status: Acute (2) HCC (hepatocellular carcinoma) Status: Inactive Assessment and plan: This is an unfortunate 84 year old lady with H/O CIRRHOSIS, who now has been diagnosed with HCC. DATA BASE from 04/11: CBC: WBC 5.5, HGB 11.7, HCT 37.2, PLT 142. CMP: Lytes: WNL, BUN 31, WELDER SETTER RESISTANCE MACHINE 1.1, GLU 110, ALB 3.9, SARAH 9.0. LFTs:1. 0/136/45/34. AFP: 20. U/S of abdomen 03/03: There is a large volume of ascites seen throughout the abdomen, greatest in the lower abdomen. Large volume ascites. MRI of abdomen: consistent with the history of cirrhosis. There is a heterogeneously T2 bright lesion centered in segment 8 of the liver. This is low in signal on T1-weighted imaging. The mass measures 5.6 x 5.1 x 5.8 cm. On postcontrast imaging this is heterogeneously arterially enhancing. There is subsequent early washout of the lesion on the more delayed phase. There is an additional area of vague arterial enhancement in the caudate lobe which blends with the surrounding liver on the more delayed imaging. Gallbladder is absent. The hepatic veins are patent. The portal vein is patent. PANCREAS: Unremarkable. SPLEEN: Normal. ADRENAL GLANDS: Normal. KIDNEYS AND URETERS: The kidneys are normal in size, shape, and enhance symmetrically. No hydronephrosis. No perinephric stranding. Multiple bilateral renal cysts. GASTROINTESTINAL TRACT: No bowel obstruction. No ascites or fluid collection. ABDOMINAL WALL: No significant hernia is appreciated. LYMPH NODES: No lymphadenopathy. VASCULAR: Normal caliber aorta. Small varices in the upper abdomen. OSSEOUS STRUCTURES: Marrow signal normal. IMPRESSION: Cirrhotic liver. Mass centered in segment 8 of the liver may correspond to the previously seen growing lesion on ultrasound. This is consistent with hepatocellular carcinoma. I got an opinion from IR at [facility] [place], Dr. Medellin, to see if intra hepatic treatment would be an option. His feeling is to start with a less invasive option, Use Sorafanib, and assess tolerability. Could save local regional therapy for later, based upon her response and her physical strength. I arranged for the Sorafenib. She got Started on a lower dose, about a month ago. So far she is tolerating it quite well. She has a rash which appears more fungal. PLAN: I gave her a prescription for Lotrimin cream to try. The son tells me that he has not received the medication, for this month, from the specialty pharmacy yet. It will be delivered tomorrow. She will continue on the Sorafanib. The plan is to increase as tolerated.. The son will keep me posted, about her progress. All their questions were answered to their satisfaction. She will return for weekly labs and in a month for a follow-up visit. Thank you, CC: Dr. Medellin. - Time Spent With Patient Total time spent is greater than 50% in coordination of care (as documented) at patient's floor/unit and/or counseling patient: 25 - 35 minutes
[2020-05-11 15:47] VITALS: BMI 24.2
[2020-05-11 15:49] VITALS: BP 127/70; PULSE 81; RESP 18; TEMP 36.8; O2SAT 99
[2020-05-11 15:50] LABS: MANUAL DIFF FLAG NO
[2020-05-11 15:55] LABS: Basophils Percent Auto 0.3 % (0-2); Eosinophils Absolute Auto 0.1 X10*3/uL (0.0-0.4); Eosinophils Percent Auto 1.5 % (0-4); Hematocrit 42.2 % (37-47); Hemoglobin 13.5 g/dl (12.0-16.0); Imm Gran Abs Auto 0.02 X10*3/uL (0.00-0.03); Imm Gran Pct Auto 0.3 % (0.0-0.4); Lymphocytes Absolute Auto 1.5 X10*3/uL (1.2-4.9); Lymphocytes Percent Auto 24.8 % (20-40); Mean Corpuscular Hemoglobin 25.6 pg (27.0-33.0); Mean Corpuscular Volume 80.1 fL (80-98); Mean Platelet Volume 11.3 fL (9.4-12.3); Monocytes Absolute Auto 0.4 X10*3/uL (0.1-1.2); Neutrophils Absolute Auto 4.1 X10*3/uL (2.0-8.3); Neutrophils Percent Auto 67.1 % (45-73); Platelet Count 101 X10*3/uL (160-400); Red Blood Count 5.27 X10*6/uL (4.20-5.50); Red Cell Distribution Width 16.7 % (11.0-16.0); White Blood Count 6.1 X10*3/uL (4.8-10.8)
[2020-05-11 16:37] LABS: Alanine Aminotransferase 46 U/L (0-31); Albumin Level 3.4 g/dL (3.5-5.0); Alkaline Phosphatase 139 U/L (39-117); Anion Gap 16 (12-20); Aspartate Amino Transferase 55 U/L (5-31); Bilirubin Total 0.8 mg/dL (0.0-1.0); Blood Urea Nitrogen 32 mg/dL (9-16); Calcium 9.1 mg/dL (8.4-10.2); Carbon Dioxide 27 mmol/L (22-29); Chloride 101 mmol/L (96-108); Creatinine Clr Calc Pharmacy 28.9; Estimated Glomerular Filt Rate 49; Glucose Random 139 mg/dL (60-115); Potassium 4.6 mmol/l (3.3-5.1); Sodium 139 mmol/L (135-145); Total Protein 7.1 g/dL (6.5-8.0)
[2020-05-12 12:22] LABS: Alpha Fetoprotein 37.5 ng/mL
[2020-06-16 15:00] VITALS: BP 152/76; PULSE 76; RESP 12; TEMP 35.9; O2SAT 95; BMI 25.8
--- NOTE | 2020-06-16 15:49 | PM.HEMONCPN ---
Medical Summary - Medical Summary Date of Service: 06/16/20 Chief complaint: FOLLOW-UP FOR: HCC. Medical Summary: DIAGNOSIS: HCC. CURRENT THERAPY: Sorafanib started, a couple of months ago. Interval History Interval history: Duyen Webber is a pleasant unfortunate 84 year old lady, here for a follow up. She tells me, she started the Sorafanib, a couple of months ago. She is tolerating it quite well so far. No CP/SOB. Her energy level is still somewhat low. She gets tired when she walks. However she is trying to go up and down the stairs to exercise. She denies abdominal pain nausea vomiting heartburn or indigestion. Her abdomen appears to be more distended. She denies any pain or pressure there. No early satiety. She denies constipation. She takes miralax. No fever nor chills. She actually has a good apetite. Weight stable. She is in good spirits. Rest of the ROS is unremarkable. Previous History: She has a previous history of decompensated cirrhosis of the liver, NAFLD versus drug-induced versus autoimmune. She denies history of alcohol nor hepatitis. She has had abdominal distension for about 4 months now. Her weight has gone up. On December she fell and hit her head. She developed an extra-axial hemorrhage. She then had an episode of aphasia. That resolved. She had seizures and was started on Keppra. She then developed lower extremity edema that has resolved with diuretics. Ultrasound of the abdomen on 03/03 revealed: Ascites. MRI of the abdomen revealed: Cirrhotic liver. Mass centered in segment 8 of the liver may correspond to the previously seen growing lesion on ultrasound. This is consistent with Hepatocellular Carcinoma. AFP 11/19: 8.2. AFP 03/25: 19.8. Review of Systems - Constitutional Reports no additional constitutional complaints, Reports increased appetite, Reports lack of energy, Reports malaise, Denies night sweats, Reports weakness, Reports weight gain - Eyes Reports no additional eye complaints - ENT Reports no additional ear, nose, mouth, and throat complaints - Cardiovascular Reports no additional cardiovascular complaints - Respiratory Reports no additional respiratory complaints - Gastrointestinal Reports no additional gastrointestinal complaints Comments: Abdominal distension - Genitourinary Reports no additional female genitourinary complaints - Musculoskeletal Reports no additional musculoskeletal complaints - Integumentary/Breasts Skin/Breast: Reports no additional skin complaints - Neurologic Reports no additional neurologic complaints, Denies abnormal gait, Reports weakness - Psychiatric Reports no additional psychiatric complaints - Endocrine Reports no additional endocrine complaints - Hematologic/Lymphatic Reports no additional hematologic/lymphatic complaints - Allergic/Immunologic Reports no additional allergic/immunologic complaints [facility] Medical History: Medical History (Last Updated 06/08/20 @ 10:08 by Vargas Zhou MD) Abrasion Acute cervical sprain Breast cancer Cirrhosis of liver with ascites Contusion Elbow sprain Esophageal varices without bleeding Hand sprain History of right breast cancer Hx of breast cancer Hx of hemorrhoids Hypercholesterolemia Hypertension Intracranial hemorrhage Knee sprain Osteoporosis Rheumatoid arthritis Seizure disorder Sprain of wrist Thrombocytopenia Functional capacity: uses cane/walker Patient : No Family History: Family History (Last Updated 06/08/20 @ 09:35 by Taniya Craig) Father No problems noted. Mother History of heart attack Brother History of heart attack Brother History of heart attack Brother No problems noted. Surgical History: Surgical History (Last Reviewed 05/18/20 @ 18:51 by Nan Lindsey RN) History of cholecystectomy Onset Date: ~2010 History of hemorrhoidectomy History of liver biopsy Onset Date: ~04/02/19 History of right mastectomy Onset Date: ~1985 Hx of colonoscopy Hx of endoscopy Social History: Social History (Last Updated 06/08/20 @ 09:36 by Taniya Craig) Living Situation History: Household Members: Children Housing: Unknown / Unable to asses Alcohol History: Alcohol intake: current Alcohol History Details: Alcohol intake frequency: does not drink Tobacco History: Smoking Status: Never smoker Second Hand Smoke Exposure: No Advance Directives: Advance Directives Date on File: 05/19/14 Nutrition Assessment: Patient : No Occupation Assessmet: service: No Smoking status: Never smoker Oncology Screenings - ECOG Performance Status ECOG Performance Status: 0 Home Medications and Allergies Home Medications Medication Instructions Recorded Confirmed Type cholecalciferol (vitamin D3) 50 50 mcg PO DAILY 01/15/20 06/08/20 History mcg (2,000 unit) capsule ferrous sulfate 325 mg (65 mg 325 mg PO DAILY 01/15/20 06/08/20 History iron) tablet metformin 500 mg tablet 500 mg PO BID 01/15/20 06/08/20 History oxycodone 5 mg tablet 5 mg PO BID 01/15/20 06/08/20 History simvastatin 20 mg tablet 20 mg PO DAILY 01/15/20 06/08/20 History alendronate 35 mg PO QWEEK 01/28/20 06/08/20 History folic acid 1 mg PO DAILY 01/28/20 06/08/20 History Nexavar 200 mg PO BID 04/13/20 06/08/20 History bumetanide 1 mg PO DAILY 05/11/20 06/08/20 History Allergies Allergy/AdvReac Type Severity Reaction Status Date / Time No Known Allergies Allergy Verified 06/08/20 09:32 Exam Vital signs: Vital Signs Temp 96.7 F L 06/16/20 15:00 Pulse 76 06/16/20 15:00 Resp 12 06/16/20 15:00 BP 152/76 H 06/16/20 15:00 Pulse Ox 95 06/16/20 15:00 Intake & Output 06/15/20 06/16/20 06/16/20 18:59 06:59 18:59 Other: Weight 58 kg [place] Weight in Grams [id number] Weight 58 kg Body Mass Index 25.8 - Constitutional Present: mild distress - Routine HEENT Exam Head: Present: normal inspection Eye: Present: normal appearance ENT: Present: mucous membranes moist - Routine Neck Exam Present: full ROM - Routine Respiratory Exam Present: CTAB - Routine Cardiovascular Exam Cardiovascular: Present: RRR, S1, S2 - Routine Abdominal Exam Present: diminished bowel sounds, distended, firm, tenderness - Routine Rectal Exam Patient deferred: digital exam - Routine Extremities Exam Present: nontender - Routine Back/Spine/Pelvis Exam Back/Spine: Present: full ROM - Routine Skin Exam Present: intact - Routine Neurological Exam Present: alert, oriented X3 - Detailed Neurological Exam: Coma Scale Eye Opening: Spontaneous (4) - Routine Psychiatric Exam Present: normal affect Data - Labs CBC & Chem 7: 06/16/20 15:35 06/16/20 15:35 Labs: 03/27/20 13:35 Add Laboratory Test Routine 04/20/20 [id number] Routine 04/20/20 08:42 CMP [Comprehensive Met. Panel] Routine Complete Blood Count Auto Diff Routine Laboratory Last Values WBC 6.7 X10*3/uL (4.8-10.8) 04/20/20 08:42 RBC 5.27 X10*6/uL (4.20-5.50) 04/20/20 08:42 Hgb 13.5 g/dl (12.0-16.0) 04/20/20 08:42 Hct 43.1 % (37-47) 04/20/20 08:42 MCV 81.8 fL (80-98) 04/20/20 08:42 MCH 25.6 pg (27.0-33.0) L 04/20/20 08:42 MCHC 31.3 g/dl (31.0-35.0) 04/20/20 08:42 RDW 16.0 % (11.0-16.0) 04/20/20 08:42 Plt Count 164 X10*3/uL (160-400) 04/20/20 08:42 MPV 11.3 fL (9.4-12.3) 04/20/20 08:42 Immature Gran % (Auto) 0.3 % (0.0-0.4) 04/20/20 08:42 Neut % (Auto) 75.1 % (45-73) H 04/20/20 08:42 Lymph % (Auto) 16.4 % (20-40) L 04/20/20 08:42 [place] % (Auto) 6.5 % (2-11) 04/20/20 08:42 Eos % (Auto) 1.2 % (0-4) 04/20/20 08:42 Baso % (Auto) 0.5 % (0-2) 04/20/20 08:42 Lymph # (Auto) 1.1 X10*3/uL (1.2-4.9) L 04/20/20 08:42 [place] # (Auto) 0.4 X10*3/uL (0.1-1.2) 04/20/20 08:42 Eos # (Auto) 0.1 X10*3/uL (0.0-0.4) 04/20/20 08:42 Baso # (Auto) 0.0 X10*3/uL (0.0-0.2) 04/20/20 08:42 Abs Immat Gran (auto) 0.02 X10*3/uL (0.00-0.03) 04/20/20 08:42 Absolute Neuts (auto) 5.0 X10*3/uL (2.0-8.3) 04/20/20 08:42 Absolute Nucleated RBC 0.000 X10*3/uL (0.0-0.012) 04/20/20 08:42 Nucleated RBC % (auto) 0.0 /100WBC (0.0-0.2) 04/20/20 08:42 Sodium 139 mmol/L (135-145) 04/20/20 08:42 Potassium 4.2 mmol/l (3.3-5.1) 04/20/20 08:42 Chloride 104 mmol/L (96-108) 04/20/20 08:42 Carbon Dioxide 24 mmol/L (22-29) 04/20/20 08:42 Anion Gap 15 (12-20) 04/20/20 08:42 BUN 28 mg/dL (9-16) H 04/20/20 08:42 Creatinine 0.96 mg/dL (0.5-1.4) 04/20/20 08:42 Estim Creat Clear Calc 33.2 04/20/20 08:42 Estimated GFR 55 04/20/20 08:42 Random Glucose 111 mg/dL (60-115) 04/20/20 08:42 Calcium 8.4 mg/dL (8.4-10.2) D 04/20/20 08:42 Total Bilirubin 1.2 mg/dL (0.0-1.0) H 04/20/20 08:42 AST 48 U/L (5-31) H 04/20/20 08:42 ALT 36 U/L (0-31) H 04/20/20 08:42 Alkaline Phosphatase 126 U/L (39-117) H 04/20/20 08:42 Total Protein 7.1 g/dL (6.5-8.0) 04/20/20 08:42 Albumin 3.5 g/dL (3.5-5.0) 04/20/20 08:42 Stool Collect Date 04/1404/20/20 Unknown Stool Occult Blood TNP 04/20/20 Unknown Stool 2 Collect Date 04/1404/20/20 Unknown Stool Occult Blood #2 TNP 04/20/20 Unknown Stool 3 Collect Date 04/1404/20/20 Unknown Stool Occult Blood #3 TNP 04/20/20 Unknown Progress Note: A/P (1) HCC (hepatocellular carcinoma) Problem details: Continue Sorafinab Status: Acute (2) HCC (hepatocellular carcinoma) Status: Inactive Assessment and plan: This is an unfortunate 84 year old lady with H/O CIRRHOSIS, who now has been diagnosed with HCC. DATA BASE from 04/11: CBC: WBC 5.5, HGB 11.7, HCT 37.2, PLT 142. CMP: Lytes: WNL, BUN 31, PEST LOCATOR 1.1, GLU 110, ALB 3.9, SARAH 9.0. LFTs:1. 0/136/45/34. AFP: 20. U/S of abdomen 03/03: There is a large volume of ascites seen throughout the abdomen, greatest in the lower abdomen. Large volume ascites. MRI of abdomen: consistent with the history of cirrhosis. There is a heterogeneously T2 bright lesion centered in segment 8 of the liver. This is low in signal on T1-weighted imaging. The mass measures 5.6 x 5.1 x 5.8 cm. On postcontrast imaging this is heterogeneously arterially enhancing. There is subsequent early washout of the lesion on the more delayed phase. There is an additional area of vague arterial enhancement in the caudate lobe which blends with the surrounding liver on the more delayed imaging. Gallbladder is absent. The hepatic veins are patent. The portal vein is patent. PANCREAS: Unremarkable. SPLEEN: Normal. ADRENAL GLANDS: Normal. KIDNEYS AND URETERS: The kidneys are normal in size, shape, and enhance symmetrically. No hydronephrosis. No perinephric stranding. Multiple bilateral renal cysts. GASTROINTESTINAL TRACT: No bowel obstruction. No ascites or fluid collection. ABDOMINAL WALL: No significant hernia is appreciated. LYMPH NODES: No lymphadenopathy. VASCULAR: Normal caliber aorta. Small varices in the upper abdomen. OSSEOUS STRUCTURES: Marrow signal normal. IMPRESSION: Cirrhotic liver. Mass centered in segment 8 of the liver may correspond to the previously seen growing lesion on ultrasound. This is consistent with hepatocellular carcinoma. I got an opinion from IR at [facility], Dr. Medellin, to see if intra hepatic treatment would be an option. His feeling is to start with a less invasive option, Use Sorafanib, and assess tolerability. Could save local regional therapy for later, based upon her response and her physical strength. I arranged for the Sorafenib. She got Started on a lower dose, around mid April. So far she is tolerating it quite well. Last time she came, she had a rash which appeared more fungal. I gave her a prescription for Lotrimin cream to try. She has abdominal distension but she is not uncomfortable at this point. She feels rather tired. Other than that she is okay. PLAN: She will continue on the Sorafanib. I wanted to increase the dose, however it appears she is already quite fatigued, so will wait on that. The son will keep me posted, about her progress. All their questions were answered to their satisfaction. She will return for weekly labs and in a month for a follow-up visit. Thank you, CC: Dr. Medellin. Dr. Zhou. - Time Spent With Patient Total time spent is greater than 50% in coordination of care (as documented) at patient's floor/unit and/or counseling patient: 25 - 35 minutes
[2020-06-16 16:07] LABS: MANUAL DIFF FLAG NO
[2020-06-16 16:09] LABS: Basophils Percent Auto 0.4 % (0-2); Eosinophils Absolute Auto 0.1 X10*3/uL (0.0-0.4); Eosinophils Percent Auto 0.9 % (0-4); Hematocrit 41.6 % (37-47); Hemoglobin 13.3 g/dl (12.0-16.0); Imm Gran Abs Auto 0.02 X10*3/uL (0.00-0.03); Imm Gran Pct Auto 0.3 % (0.0-0.4); Lymphocytes Absolute Auto 1.4 X10*3/uL (1.2-4.9); Lymphocytes Percent Auto 18.2 % (20-40); Mean Corpuscular Hemoglobin 25.6 pg (27.0-33.0); Mean Corpuscular Volume 80.2 fL (80-98); Mean Platelet Volume 10.8 fL (9.4-12.3); Monocytes Absolute Auto 0.4 X10*3/uL (0.1-1.2); Monocytes Percent Auto 5.8 % (2-11); Neutrophils Absolute Auto 5.6 X10*3/uL (2.0-8.3); Neutrophils Percent Auto 74.4 % (45-73); Platelet Count 142 X10*3/uL (160-400); Red Blood Count 5.19 X10*6/uL (4.20-5.50); Red Cell Distribution Width 18.8 % (11.0-16.0); White Blood Count 7.5 X10*3/uL (4.8-10.8)
--- NOTE | 2020-06-16 16:19 | MHC.HEMONCSW ---
met briefly with patient and son. patient continues oral treatment. coping fairly well. son interpreted. denies stress or concerns at this time.
--- NOTE | 2020-06-16 16:42 | MHC.HEMONCMA ---
Patient present to f/u on hapatocellular carcinoma and cirrhosis of liver. History reviewed, labs drawn and hand blocker was used for this visit. Follow up in a month. Son was also called with CBC lab results (normal) and he will be called tomorrow on pending chemistry results.
[2020-06-16 16:45] LABS: Alanine Aminotransferase 41 U/L (0-31); Albumin Level 3.1 g/dL (3.5-5.0); Alkaline Phosphatase 148 U/L (39-117); Anion Gap 18 (12-20); Aspartate Amino Transferase 50 U/L (5-31); Blood Urea Nitrogen 26 mg/dL (9-16); Calcium 8.1 mg/dL (8.4-10.2); Carbon Dioxide 23 mmol/L (22-29); Chloride 101 mmol/L (96-108); Creatinine Clr Calc Pharmacy 33.9; Estimated Glomerular Filt Rate 57; Glucose Random 114 mg/dL (60-115); Potassium 4.2 mmol/L (3.3-5.1); Sodium 138 mmol/L (135-145); Total Protein 7.1 g/dL (6.5-8.0)
[2020-06-17 11:47] LABS: Alpha Fetoprotein 26.6 ng/mL
== END 2020-08-03 | disposition home or self-care (01) ==
LOC: HO.ONC 15:40
PROVIDERS: Referring Provider Internal Medicine Gastroenterology; Visit Provider Internal Medicine Medical Oncology
DX: C22.0 Liver cell carcinoma (principal); Z79.899 Other long term (current) drug therapy
CPT/HCPCS: 36415; 80053; 82105; 82270; 85025; 99204; 99214

== ENCOUNTER 2020-07-13 12:33 | Outpatient (REF) | payer MEDICARE, MEDICAID, SELFPAY ==
[2020-07-13 13:29] LABS: Eosinophils Absolute Auto 0.1 X10*3/uL (0.0-0.4); Eosinophils Percent Auto 0.7 % (0-4); MANUAL DIFF FLAG SCAN; SCAN SMEAR FLAG 1
[2020-07-13 13:31] LABS: Basophils Percent Auto 0.5 % (0-2); Hematocrit 43.7 % (37-47); Hemoglobin 13.8 g/dl (12.0-16.0); Imm Gran Abs Auto 0.02 X10*3/uL (0.00-0.03); Imm Gran Pct Auto 0.3 % (0.0-0.4); Lymphocytes Absolute Auto 0.9 X10*3/uL (1.2-4.9); Lymphocytes Percent Auto 12.2 % (20-40); Mean Corpuscular HGB Conc 31.6 g/dl (31.0-35.0); Mean Corpuscular Hemoglobin 25.4 pg (27.0-33.0); Mean Corpuscular Volume 80.5 fL (80-98); Mean Platelet Volume 10.1 fL (9.4-12.3); Monocytes Absolute Auto 0.4 X10*3/uL (0.1-1.2); Monocytes Percent Auto 5.9 % (2-11); Neutrophils Absolute Auto 5.9 X10*3/uL (2.0-8.3); Neutrophils Percent Auto 80.4 % (45-73); Platelet Count 162 X10*3/uL (160-400); Red Blood Count 5.43 X10*6/uL (4.20-5.50); Red Cell Distribution Width 20.4 % (11.0-16.0); White Blood Count 7.3 X10*3/uL (4.8-10.8)
[2020-07-13 13:35] LABS: PLT ABN DIST 1; SLIDE REVIEW VERIFIED
[2020-07-13 13:56] LABS: Alanine Aminotransferase 48 U/L (0-31); Albumin Level 2.8 g/dL (3.5-5.0); Alkaline Phosphatase 191 U/L (39-117); Anion Gap 18 (12-20); Aspartate Amino Transferase 59 U/L (5-31); Bilirubin Total 1.6 mg/dL (0.0-1.0); Blood Urea Nitrogen 28 mg/dL (9-16); C Reactive Protein 11.17 mg/dL (< or = 0.50); Calcium 8.5 mg/dL (8.4-10.2); Carbon Dioxide 22 mmol/L (22-29); Chloride 100 mmol/L (96-108); Estimated Glomerular Filt Rate 50; Glucose Random 105 mg/dL (60-115); Potassium 4.3 mmol/L (3.3-5.1); Sodium 136 mmol/L (135-145); Total Protein 7.2 g/dL (6.5-8.0)
[2020-07-13 14:23] LABS: Erythrocyte Sedimentation Rate 41 MM/HR (0-20)
== END 2020-07-13 12:34 | disposition home or self-care (01) ==
LOC: HO.LAB 12:33
PROVIDERS: PCP Internal Medicine; Visit Provider Internal Medicine Rheumatology
DX: M05.79 Rheumatoid arthritis with rheumatoid factor of multiple sites without organ or systems involvement (principal)
CPT/HCPCS: 36415; 80053; 85025; 85652; 86140

== ENCOUNTER 2020-07-23 14:15 | Inpatient (IN) | payer MEDICARE, MEDICAID, SELFPAY ==
--- NOTE | ~2020-07-23 | CT_ITS ---
EXAMINATION: CT ABDOMEN AND PELVIS WITHOUT CONTRAST CLINICAL INFORMATION: MRI abdomen 03/11/2020, ultrasound abdomen 03/03/2020, CT abdomen and pelvis 02/25/2019 ((report only) COMPARISON: None TECHNIQUE: Multidetector volumetric imaging was performed from the superior aspect of the liver through the pubic symphysis. Sagittal and coronal reformatted images were obtained on the technologist's workstation. This CT examination was performed using dose optimization techniques as appropriate, variously including the following: *Automated exposure control *Adjustment of mA and/or kV according to patient size (this includes techniques or standardized protocols for targeted exams where dose is matched to indication/reason for exam; i.e. extremities or head) *Use of iterative reconstruction technique DLP: 571 mGy-cm FINDINGS: LUNG BASES: The visualized lung bases are unremarkable. PERITONEUM: Massive ascites is present which is responsible for the abdominal distention. Some nodular changes are present in the omentum (for example 3:64). LIVER, GALLBLADDER, AND BILIARY TREE: The liver is small shrunken and nodular consistent with cirrhosis. A large mass is present in the right lobe of the liver, better seen on previous MRI exam measuring 7.6 x 6.3 x 7.2 cm (3:18 and 5:78). At the time of the MRI on 03/11/2020 the mass was smaller measuring 5.6 x 5.1 x 5.8 cm. Status post cholecystectomy. PANCREAS: Unremarkable. SPLEEN: Unremarkable. ADRENAL GLANDS: Right adrenal gland appears normal. The left demonstrates some nodular thickening KIDNEYS AND URETERS: The kidneys are normal in size, shape, and attenuation. Cysts are present in the kidney with one small hyperattenuating mass at the left upper pole measuring 4 mm that is probably a hyperechoic dense cyst. Cysts were described previously. No hydronephrosis, hydroureter, or calculi seen. No perinephric stranding. BLADDER: The bladder is distended but difficult to separate from the ascites. No definite abnormality is seen. GASTROINTESTINAL TRACT: There are colonic diverticula without diverticulitis. The small and large bowel are otherwise unremarkable. The appendix is none seen but there is no evidence of appendicitis.. ABDOMINAL WALL: No significant hernia is appreciated. Anasarca is present LYMPH NODES: No retroperitoneal lymphadenopathy. VASCULAR: Unremarkable. PELVIC VISCERA: A small anteverted uterus is present. An abnormal adnexal mass is not seen. OSSEOUS STRUCTURES: Mild degenerative changes are present. A mild compression fracture of T8 is seen. CT/CT abdomen pelvis wo con IMPRESSION: 1. Massive ascites is present. This is responsible for the patient's abdominal swelling. 2. Nodularity in omentum worrisome for carcinomatosis. 3. Shrunken cirrhotic liver with large central hepatocellular carcinoma which has increased in size since the prior study. 4. Other incidental findings as described above.
--- NOTE | ~2020-07-23 | US_ITS ---
EXAMINATION: ULTRASOUND-GUIDED PARACENTESIS CLINICAL INFORMATION: Ascites COMPARISON: None TECHNIQUE: Procedure and risks and benefits including bleeding, infection and low blood pressure were discussed with the patient and informed consent was obtained. The right lower quadrant was prepped and draped in usual sterile fashion. The skin and soft tissues were anesthetized with 1% lidocaine plain. Using ultrasound guidance and a 5 [place] rapid centesis catheter, access to the ascitic fluid was obtained. 9 L of clear yellow fluid was removed. No diagnostic specimen was sent. FINDINGS: There is a large amount of ascites. US/US paracentesis abd w/image IMPRESSION: Ultrasound-guided paracentesis.
--- NOTE | 2020-07-23 14:48 | ECG_ITS ---
Test Reason : WEAKNESS Blood Pressure : / mmHG Vent. Rate : 093 BPM Atrial Rate : 093 BPM P-R Int : 116 ms QRS Dur : 076 ms QT Int : 360 ms P-R-T Axes : 019 025 078 degrees QTc Int : 447 ms Normal sinus rhythm with sinus arrhythmia Normal ECG When compared to the previous EKG of 27 jan 2020 T inversion seems resolved. Referred By: Rosalind Aviles Electronically Signed By:ANNAMARIA JENSEN
[2020-07-23 14:50] VITALS: BP 137/92; BP 160/90; PULSE 86; PULSE 95; RESP 18; TEMP 37.2; O2SAT 96; O2SAT 98; BMI 29.2
--- NOTE | 2020-07-23 14:55 | ED.GENADULT ---
HPI - General Adult General Chief complaint: General Medical Stated complaint: DIFF SWALLOWING,FAILURE TO THRIVE FROM HOME Time Seen by Provider: 07/23/20 14:45 History of Present Illness HPI narrative: 85-year-old female sent by family via ambulance for failure to thrive. Patient has a history of DM, hypertension, hypercholesteremia, breast cancer 1965 with no chemotherapy, rheumatoid arthritis, osteoporosis, esophageal varices, hepatocellular carcinoma, dyslipidemia, seizure disorder, liver cirrhosis with ascites. Patient has been followed by GI clinic seen by Dr. Zhou on June 08. Upper endoscopy done on May 25 that showed esophagus: grade 2-3 for: Varices from 30-36 cm GE junction at 36 cm. No esophagitis or Michelle's. Stomach: Moderate portal hypertensive gastropathy no gastric varices. Intervention: Band ligation x3 was performed with flattening of varices. The patient is poor historian unable to get much information from her per EMS report patient has been seen by Dr Amato. Denies fever or chills. Patient has not been eating anything for the last few days. Related Data Home Medications Medication Instructions Recorded Confirmed cholecalciferol (vitamin D3) 50 50 mcg PO DAILY 01/15/20 06/30/20 mcg (2,000 unit) capsule ferrous sulfate 325 mg (65 mg 325 mg PO DAILY 01/15/20 06/30/20 iron) tablet metformin 500 mg tablet 500 mg PO BID 01/15/20 06/30/20 oxycodone 5 mg tablet 5 mg PO BID 01/15/20 06/30/20 alendronate 35 mg PO QWEEK 01/28/20 06/30/20 folic acid 1 mg PO DAILY 01/28/20 06/30/20 Nexavar 200 mg PO BID 04/13/20 06/30/20 bumetanide 1 mg PO DAILY 05/11/20 06/30/20 Previous Rx's Medication Instructions Recorded levetiracetam 500 mg PO BID #60 tab 01/29/20 spironolactone 25 mg tablet 25 mg PO DAILY 60 Days #60 tab 03/26/20 simvastatin 20 mg tablet 20 mg PO DAILY 90 Days #90 tab 06/30/20 Allergies Allergy/AdvReac Type Severity Reaction Status Date / Time No Known Allergies Allergy Verified 06/30/20 15:26 Review of Systems Review of Systems: Constitutional : No Weight loss, No Fever, No Chills, No Night Sweats, No Fatigue, No Malaise ENT/Mouth : No Hearing loss, No Ear Pain, No Nasal Congestion, No Sinus Pain, No Hoarseness, No sore throat, No Rhinorrhea, No Swallowing Difficulty Eyes: No Eye Pain, No Swelling, No Redness, No Foreign Body, No Discharge, No Vision Changes Cardiovascular : No Chest Pain, No SOB, No Dyspnea on Exertion, No Orthopnea, No Edema, No Palpitations Respiratory : No Cough, No Sputum, No Wheezing, No Smoke Exposure, No Dyspnea Gastrointestinal : No Nausea, No Vomiting, No Diarrhea, No Constipation, abdominal Pain, No Hematochezia, No Melena Genitourinary : no irregular bleeding, No Dysuria, No Urinary Frequency, No Hematuria, No Urinary Incontinence, No Urgency, No Flank Pain, No Urinary Flow Changes, No Hesitancy Musculoskeletal : No joint pain, No Myalgias, No Joint Swelling Skin : No Skin Lesions, No rash Neuro : No Weakness, No Numbness, No Paresthesias, No Loss of Consciousness, No Dizziness, No Headache Psych : No Anxiety/Panic, No Depression, No SI/HI/AH/VH, No Social Issues, Heme/Lymph: No Bruising, No Bleeding,No Lymphadenopathy Endocrine : No Polyuria, No Polydipsia, No Temperature Intolerance Yes all other systems are reviewed and are negative [facility] Past Medical History Medical History (Updated 06/30/20 @ 15:47 by Marina Romero MD) Abrasion Acute cervical sprain Breast cancer Cirrhosis of liver with ascites Contusion Dyslipidemia Elbow sprain Esophageal varices without bleeding Hand sprain History of right breast cancer Hx of breast cancer Hx of hemorrhoids Hypercholesterolemia Hypertension Intracranial hemorrhage Knee sprain Osteoporosis Rheumatoid arthritis Seizure disorder Sprain of wrist Thrombocytopenia Surgical History History of cholecystectomy (~2010) History of hemorrhoidectomy History of liver biopsy (~04/02/19) History of right mastectomy (~1985) Hx of colonoscopy Hx of endoscopy Family History Family History Father No problems noted. Mother History of heart attack Brother History of heart attack Brother History of heart attack Brother No problems noted. Social History Social History (Updated 06/30/20 @ 15:29 by Marina Romero MD) Household Members: Children Housing: Unknown / Unable to assess Alcohol intake: current Alcohol intake frequency: does not drink Smoking Status: Never smoker Second Hand Smoke Exposure: No Advance Directives: Yes Advance Directives on File: Yes Advance Directives Date on File: 05/19/14 service: No Physical Exam Vital Signs: Vital Signs: Last Vital Signs Temp 99.0 F 07/23/20 14:50 Pulse 95 07/23/20 14:50 Resp 18 07/23/20 14:50 BP 137/92 H 07/23/20 14:50 Pulse Ox 96 07/23/20 14:50 Body Mass Index 29.2 Const: General: cooperative, comfortable, ill appearing and lethargic Orientation/consciousness: patient oriented x3 and lethargic Limitations: no limitations HENMT: Head: Yes normal to inspection Ears: hearing grossly normal bilaterally General nose exam: Normal external nose present Face and sinus: Yes normal facial exam Mouth: Normal oral and palatal mucosa present Throat: Yes posterior oropharynx normal Eyes: General: appearance normal, both eyes and all related structures Eyelids: Yes eyelids normal Conjunctivae: conjunctival abnormal Sclerae: sclerae normal Pupils: Equal, round and reactive pupils present Neck: Neck: Yes normal visual inspection, Yes full ROM, Yes no lymphadenopathy, Yes trachea midline and Yes supple Thyroid: Thyroid normal Lymphatic: no lymphadenopathy noted Chest: Chest palpation & inspection: normal inspection of the chest Resp: Effort & Inspection: normal respiratory effort and able to speak in complete sentences Auscultation: clear to auscultation bilaterally Cardio: Jugular venous distension: no JVD Rate: regular rate Rhythm: regular rhythm Heart sounds: S1 normal heart sound present, S2 normal heart sound present, no gallops, no murmurs and no rubs Peripheral pulses: Peripheral pulses 2+ throughout GI: Inspection: Yes distended (Grossly distended) Palpation (GI): No hepatosplenomegaly present and No Rebound tenderness present Percussion: Yes normal to percussion Auscultation: Hypoactive bowel sounds present Back/Spine/Pelvis: Cervical Spine: cervical ROM normal and No cervical muscular tenderness Thoracic/Lumbar Spine: thoracic and lumbar spine normal to inspection Skin: General skin exam: no rashes or lesions noted, elasticity normal and turgor normal Neuro: General: patient oriented x3 Cranial nerves: Yes Equal, round and reactive pupils present Extrem: General: Yes normal to inspection, Yes full ROM and Yes capillary refill normal Psych: Appearance: grossly normal Mental Status: mental status grossly normal Speech and movement: Normal speech and movement present Affect: normal affect Attitude: cooperative Thought process: Normal thought process present Insight: Good insight present (Psych) Course Course Course Narrative: 85-year-old female patient of Dr. Abelardo COLLINS and Dr. Carney is her oncologist. Labs ordered patient denies to be in any pain right now. Continue to monitor. Will order ultrasound-guided paracentesis. Patient most likely will be admitted. Reevaluation(s) Reevaluation #1: Patient resting. Denies any abdominal discomfort. Negative exam for SOB, CP. Awaiting more results troponin positive 71.5, platelets 187. PT/INR 23.6/2.0. Time: 18:02 Reevaluation #2: Will admit patient to hospitalist services. Patient continues to be stable. Denies any CP, abdominal discomfort. Vital signs stable. Time: 18:11 Reevaluation #3: Spoke to hospitalist patient will be admitted. Moderate ascites seen on CT scan. Medical Decision Making Lab Data Result diagrams: 07/23/20 16:28 07/23/20 16:28 Labs: Lab Results 07/23/20 07/23/20 07/23/20 Range/Units 15:36 16:28 16:28 WBC 7.5 (4.8-10.8) X10*3/uL RBC 5.57 H (4.20-5.50) X10*6/uL Hgb 14.4 (12.0-16.0) g/dl Hct 43.6 (37-47) % MCV 78.3 L (80-98) fL MCH 25.9 L (27.0-33.0) pg MCHC 33.0 (31.0-35.0) g/dl RDW 21.1 H (11.0-16.0) % Plt Count 187 (160-400) X10*3/uL MPV 10.0 (9.4-12.3) fL Immature Gran % (Auto) 0.4 (0.0-0.4) % Neut % (Auto) 86.3 H (45-73) % Lymph % (Auto) 7.1 L (20-40) % [place] % (Auto) 5.6 (2-11) % Eos % (Auto) 0.3 (0-4) % Baso % (Auto) 0.3 (0-2) % Lymph # (Auto) 0.5 L (1.2-4.9) X10*3/uL [place] # (Auto) 0.4 (0.1-1.2) X10*3/uL Eos # (Auto) 0.0 (0.0-0.4) X10*3/uL Baso # (Auto) 0.0 (0.0-0.2) X10*3/uL Abs Immat Gran (auto) 0.03 (0.00-0.03) X10*3/uL Absolute Neuts (auto) 6.4 (2.0-8.3) X10*3/uL Absolute Nucleated RBC 0.000 (0.0-0.012) X10*3/uL Nucleated RBC % (auto) 0.0 (0.0-0.2) /100WBC Smear Tech's Comments VERIFIED PT 23.6 H D (10.8-13.0) SEC INR 2.0 H (0.9-1.1) Troponin I High Sens 71.5 H (<3.5-17.0) ng/L Imaging Data CT scan - abdomen: Attestation: I personally reviewed and interpreted this imaging study as follows: Radiologist's impression: FINDINGS: LUNG BASES: The visualized lung bases are unremarkable. PERITONEUM: Massive ascites is present which is responsible for the abdominal distention. Some nodular changes are present in the omentum (for example 3:64). LIVER, GALLBLADDER, AND BILIARY TREE: The liver is small shrunken and nodular consistent with cirrhosis. A large mass is present in the right lobe of the liver, better seen on previous MRI exam measuring 7.6 x 6.3 x 7.2 cm (3:18 and 5:78). At the time of the MRI on 03/11/2020 the mass was smaller measuring 5.6 x 5.1 x 5.8 cm. Status post cholecystectomy. PANCREAS: Unremarkable. SPLEEN: Unremarkable. ADRENAL GLANDS: Right adrenal gland appears normal. The left demonstrates some nodular thickening KIDNEYS AND URETERS: The kidneys are normal in size, shape, and attenuation. Cysts are present in the kidney with one small hyperattenuating mass at the left upper pole measuring 4 mm that is probably a hyperechoic dense cyst. Cysts were described previously. No hydronephrosis, hydroureter, or calculi seen. No perinephric stranding. BLADDER: The bladder is distended but difficult to separate from the ascites. No definite abnormality is seen. GASTROINTESTINAL TRACT: There are colonic diverticula without diverticulitis. The small and large bowel are otherwise unremarkable. The appendix is none seen but there is no evidence of appendicitis.. ABDOMINAL WALL: No significant hernia is appreciated. Anasarca is present LYMPH NODES: No retroperitoneal lymphadenopathy. VASCULAR: Unremarkable. PELVIC VISCERA: A small anteverted uterus is present. An abnormal adnexal mass is not seen. OSSEOUS STRUCTURES: Mild degenerative changes are present. A mild compression fracture of T8 is seen. CT/CT abdomen pelvis wo con IMPRESSION: 1. Massive ascites is present. This is responsible for the patient's abdominal swelling. 2. Nodularity in omentum worrisome for carcinomatosis. 3. Shrunken cirrhotic liver with large central hepatocellular carcinoma which has increased in size since the prior study. 4. Other incidental findings as described above. Discharge Plan Discharge Prescriptions: No Action folic acid 1 mg tablet 1 mg PO DAILY RF: 0 alendronate 35 mg tablet 35 mg PO QWEEK RF: 0 levetiracetam 500 mg Tablet 500 mg PO BID Qty: 60 RF: 0 Nexavar 200 mg Tablet 200 mg PO BID RF: 0 bumetanide 1 mg Tablet 1 mg PO DAILY RF: 0 simvastatin 20 mg tablet 20 mg PO DAILY 90 Days Qty: 90 RF: 0 oxycodone 5 mg tablet 5 mg PO BID RF: 0 ferrous sulfate 325 mg (65 mg iron) tablet 325 mg PO DAILY RF: 0 metformin 500 mg tablet 500 mg PO BID RF: 0 cholecalciferol (vitamin D3) [Vitamin D3] 50 mcg (2,000 unit) capsule 50 mcg PO DAILY RF: 0 spironolactone 25 mg tablet 25 mg PO DAILY 60 Days Qty: 60 RF: 3
[2020-07-23 15:53] LABS: Prothrombin Time 23.6 SEC (10.8-13.0)
[2020-07-23 16:38] LABS: Eosinophils Percent Auto 0.3 % (0-4); Hemoglobin 14.4 g/dl (12.0-16.0); Imm Gran Abs Auto 0.03 X10*3/uL (0.00-0.03); Imm Gran Pct Auto 0.4 % (0.0-0.4); MANUAL DIFF FLAG SCAN; Red Cell Distribution Width 21.1 % (11.0-16.0); SCAN SMEAR FLAG 1
[2020-07-23 16:40] LABS: Basophils Percent Auto 0.3 % (0-2); Hematocrit 43.6 % (37-47); Lymphocytes Absolute Auto 0.5 X10*3/uL (1.2-4.9); Lymphocytes Percent Auto 7.1 % (20-40); Mean Corpuscular Hemoglobin 25.9 pg (27.0-33.0); Mean Corpuscular Volume 78.3 fL (80-98); Monocytes Absolute Auto 0.4 X10*3/uL (0.1-1.2); Monocytes Percent Auto 5.6 % (2-11); Neutrophils Absolute Auto 6.4 X10*3/uL (2.0-8.3); Neutrophils Percent Auto 86.3 % (45-73); PLT ABN DIST 1; Platelet Count 187 X10*3/uL (160-400); Red Blood Count 5.57 X10*6/uL (4.20-5.50); White Blood Count 7.5 X10*3/uL (4.8-10.8)
[2020-07-23 17:03] LABS: SLIDE REVIEW VERIFIED
[2020-07-23 17:17] LABS: Troponin-I High Sensitivity 71.5 ng/L (<3.5-17.0)
[2020-07-23 18:56] VITALS: BP 118/74; PULSE 90; RESP 16; TEMP 36.9; O2SAT 93
[2020-07-23 20:43] VITALS: BP 112/79; PULSE 92; RESP 16; TEMP 36.9; O2SAT 93
[2020-07-23 21:28] VITALS: BP 101/64; PULSE 104; RESP 20
[2020-07-23 21:39] LABS: Alanine Aminotransferase 97 U/L (0-31); Albumin Level 2.7 g/dL (3.5-5.0); Alkaline Phosphatase 240 U/L (39-117); Anion Gap 19 (12-20); Aspartate Amino Transferase 111 U/L (5-31); Bilirubin Total 1.8 mg/dL (0.0-1.0); Blood Urea Nitrogen 59 mg/dL (9-16); Calcium 8.2 mg/dL (8.4-10.2); Carbon Dioxide 20 mmol/L (22-29); Chloride 97 mmol/L (96-108); Creatinine Clr Calc Pharmacy 23.1; Estimated Glomerular Filt Rate 35; Glucose Random 119 mg/dL (60-115); Potassium 4.7 mmol/L (3.3-5.1); Sodium 131 mmol/L (135-145); Total Protein 7.2 g/dL (6.5-8.0)
[2020-07-23 21:40] LABS: Glucose Urine UA NEG (NEG); Leukocyte Esterase Urine NEG (NEG); Nitrite Urine NEG (NEG); PH 5.5 (5.0-8.0); Specific Gravity - Urine 1.015 (1.005-1.025); Urine Blood NEG (NEG); Urine Ketones NEG (NEG); Urine Protein NEG (NEG-TRACE)
[2020-07-23 21:42] LABS: Appearance Urine CLEAR; Color Urine YELLOW
[2020-07-23 21:45] LABS: COVID-19 Test Negative (Negative)
--- NOTE | 2020-07-23 22:05 | PM.IMHP ---
History of Present Illness Date of Service: 07/23/20 Chief Complaint: abdominal distension 85-year-old female with past medical history of HCC, HTN, HLD, breast cancer, status post mastectomy, cirrhosis of liver with ascites, diabetes, who is brought into the hospital with complaints of failure to thrive as well as abdominal distension. Patient is confused oriented to self and place only, history is limited as she is a poor historian,But able to give some answers.. It appears the patient was brought in from her family due to failure to thrive as well as abdominal distension. Patient reports her abdomen is feeling better after undergoing paracentesis in the ED, she denies any headache, change in vision, no chest pain, shortness of breath. She denies any nausea or vomiting, denies any urinary symptoms. Denies any abdominal pain. Diarrhea constipation. Patient reports that she noticed her abdomen to be distended for the past 1 week. Stable with no significant abnormal vitals Labs are significant for WBC count of 7.5, hemoglobin of 14.4, hematocrit 43.6, PT of 23.6, INR of 2, sodium of 131, potassium of 4.7, BUN of 59 creatinine of 1.44 which is higher than her baseline of 1, total bili of 1.8, AST of 111, ALT of 97, alk-phos of 240, 71.5 patient denies any chest pain, albumin of 2.7, UA negative. Abdominal CT reveals massive ascites, nodularity in omentum were some for carcinomatosis, shrunken cirrhotic liver with large central hepatic cellular carcinoma which has increased since the prior study. Patient will be admitted for further management Past medical history is obtained from EMR Review of Systems Review of Systems: Yes all other systems are reviewed and are negative [facility] Medical History Abrasion Acute cervical sprain Breast cancer Cirrhosis of liver with ascites Contusion Dyslipidemia Elbow sprain Esophageal varices without bleeding Hand sprain History of right breast cancer Hx of breast cancer Hx of hemorrhoids Hypercholesterolemia Hypertension Intracranial hemorrhage Knee sprain Osteoporosis Rheumatoid arthritis Seizure disorder Sprain of wrist Thrombocytopenia Family History Father No problems noted. Mother History of heart attack Brother History of heart attack Brother History of heart attack Brother No problems noted. Surgical History History of cholecystectomy (~2010) History of hemorrhoidectomy History of liver biopsy (~04/02/19) History of right mastectomy (~1985) Hx of colonoscopy Hx of endoscopy Social History Household Members: Children Housing: House Do you presently have visiting nurse or other home services: Yes Alcohol intake: current Alcohol intake frequency: does not drink Smoking Status: Never smoker Second Hand Smoke Exposure: No Use of substances other than those prescribed or required for medical reasons: No Have you been hit, kicked, punched, or otherwise hurt by someone within the past year? If so, by whom?: No Do you feel safe in your current relationship?: No Current Relationship Is there a partner from a previous relationship who is making you feel unsafe now?: No Are you made to feel afraid or neglected: No Advance Directives: Yes Advance Directives on File: Yes Advance Directives Date on File: 05/19/14 Do you have thoughts of harming others: None Do you have a plan to hurt others: No Plan Recently lost weight without trying: No service: No Meds Allergies Allergy/AdvReac Type Severity Reaction Status Date / Time No Known Allergies Allergy Verified 06/30/20 15:26 Home Medications Medication Instructions Recorded Confirmed Last Taken Type alendronate 1 tab PO QWEEK 07/23/20 07/23/20 Unknown History ferrous sulfate 1 tab PO DAILY 07/23/20 07/23/20 Unknown History folic acid 1 tab PO DAILY 07/23/20 07/23/20 Unknown History lancets [FreeStyle Lancets] 07/23/20 07/23/20 Unknown History levetiracetam 1 tab PO BID 07/23/20 07/23/20 Unknown History metformin 1 tab PO BID 07/23/20 07/23/20 Unknown History oxycodone 1 tab PO BID 07/23/20 07/23/20 Unknown History simvastatin 1 tab PO DAILY 07/23/20 07/23/20 Unknown History sorafenib [Nexavar] 2 tab PO BID 07/23/20 07/23/20 Unknown History spironolactone 25 mg PO DAILY 07/23/20 07/23/20 Unknown History Physical Exam Vital Signs and Narrative: Vital Signs: Last Vital Signs Temp 98.5 F 07/23/20 20:43 Pulse 104 H 07/23/20 21:28 Resp 20 07/23/20 21:28 BP 101/64 07/23/20 21:28 Pulse Ox 93 07/23/20 20:43 Body Mass Index 29.2 Const: Other: Oriented to self and place but not to date and time General: cooperative and no acute distress Eyes: General: appearance normal, both eyes and all related structures Resp: Effort & Inspection: normal respiratory effort and able to speak in complete sentences Cardio: Rate: regular rate Rhythm: regular rhythm GI: Other: Significantly ascitic abdomen Palpation (GI): Soft to palpation Auscultation: normal bowel sounds Skin: General skin exam: no rashes or lesions noted Neuro: Cognition (Neuro): normal cognition Extrem: General: Yes normal to inspection and Yes no pedal edema Results Labs CBC and Chem 7: 07/23/20 16:28 07/23/20 20:49 Labs: Laboratory Results - last 24 hr 07/23/20 07/23/20 07/23/20 15:36 16:28 16:28 MCV 78.3 L MCH 25.9 L MCHC 33.0 RDW 21.1 H Plt Count 187 MPV 10.0 Immature Gran % (Auto) 0.4 Neut % (Auto) 86.3 H Lymph % (Auto) 7.1 L [place] % (Auto) 5.6 Eos % (Auto) 0.3 Baso % (Auto) 0.3 Lymph # (Auto) 0.5 L [place] # (Auto) 0.4 Eos # (Auto) 0.0 Baso # (Auto) 0.0 Abs Immat Gran (auto) 0.03 Absolute Neuts (auto) 6.4 Absolute Nucleated RBC 0.000 Nucleated RBC % (auto) 0.0 Smear Tech's Comments VERIFIED PT 23.6 H D INR 2.0 H Anion Gap Estim Creat Clear Calc Estimated GFR Random Glucose Calcium Total Bilirubin AST ALT Alkaline Phosphatase Troponin I High Sens 71.5 H Total Protein Albumin Urine Color Urine Appearance Urine pH Ur Specific [place] Urine Protein Urine Glucose (UA) Urine Ketones Urine Blood Urine Nitrite Ur Leukocyte Esterase COVID-19 ([facility]) COVID-19 Clin Com 07/23/20 07/23/2021 20:49 21:23 21:29 MCV MCH MCHC RDW Plt Count MPV Immature Gran % (Auto) Neut % (Auto) Lymph % (Auto) [place] % (Auto) Eos % (Auto) Baso % (Auto) Lymph # (Auto) [place] # (Auto) Eos # (Auto) Baso # (Auto) Abs Immat Gran (auto) Absolute Neuts (auto) Absolute Nucleated RBC Nucleated RBC % (auto) Smear Tech's Comments PT INR Anion Gap 19 Estim Creat Clear Calc 23.1 Estimated GFR 35 Random Glucose 119 H Calcium 8.2 L Total Bilirubin 1.8 H AST 111 H ALT 97 H Alkaline Phosphatase 240 H D Troponin I High Sens Total Protein 7.2 Albumin 2.7 L Urine Color YELLOW Urine Appearance CLEAR Urine pH 5.5 Ur Specific [place] 1.015 Urine Protein NEG Urine Glucose (UA) NEG Urine Ketones NEG Urine Blood NEG Urine Nitrite NEG Ur Leukocyte Esterase NEG COVID-19 ([facility]) Negative COVID-19 Clin Com See Note Imaging Radiologist's Impressions: Impressions Abdomen/Pelvis CT 07/23/20 14:48 IMPRESSION: 1. Massive ascites is present. This is responsible for the patient's abdominal swelling. 2. Nodularity in omentum worrisome for carcinomatosis. 3. Shrunken cirrhotic liver with large central hepatocellular carcinoma which has increased in size since the prior study. 4. Other incidental findings as described above. Assessment and Plan (1) Ascites: Qualifiers: Ascites type: other type Qualified Code(s): R18.8 - Other ascites Status: Acute (2) Failure to thrive: Status: Acute (3) HCC (hepatocellular carcinoma): Problem details: Continue Sorafenib. Follow-up with Heme-Onc. Status: Acute This is an 85-year-old female who presents from home with history of hepatocellular carcinoma for failure to thrive as well as abdominal distension. Underwent paracentesis in the ED. # ascites - secondary to HCC, - CT abdomen showing large amount of ascites which is responsible for the patient's abdominal distension - underwent paracentesis in the ED but continues to have a significantly distended abdomen on exam - will consult IR for further therapeutic paracentesis in a.m. - will obtain ammonia # failure to thrive - most likely secondary to advancing cancer - will obtain ammonia level - will consult social/case management - may need placement # coagulopathy - secondary to liver failure/ACC - platelets within normal - has elevated INR of 2.0 - monitor for any bleed - PT INR daily # HCC - advancing per imaging - consult Hematology-Oncology # diabetes mellitus - start low-dose sliding scale - hold metformin - diabetic diet # hypertension - continue spironolactone # HLD - continue statin DVT prophylaxis heparin subQ
[2020-07-23 23:25] VITALS: BP 103/75; PULSE 85; RESP 17; TEMP 36.9; O2SAT 92
--- NOTE | 2020-07-23 23:27 | PC.NURSE ---
RN CORRINA AWARE OF PATIENT 02 SAT OF 92% .
[2020-07-23 23:55] LABS: COVID-19 Test Negative (Negative)
[2020-07-24] VITALS (10 sets, daily range): BP systolic 103–152; BP diastolic 61–88; PULSE 68–97; RESP 14–18; TEMP 35.9–36.9; O2SAT 93–100; BMI 29.2
[2020-07-24] MEDS: 0.9 % Sodium Chloride Flush 3 ML SYRINGE IVFLUSH ×3 (01:33→21:41)
[2020-07-24 05:44] LABS: Basophils Percent Auto 0.2 % (0-2); Eosinophils Percent Auto 0.2 % (0-4); Hematocrit 40.5 % (37-47); Hemoglobin 13.4 g/dl (12.0-16.0); Imm Gran Abs Auto 0.03 X10*3/uL (0.00-0.03); Imm Gran Pct Auto 0.5 % (0.0-0.4); Lymphocytes Absolute Auto 0.5 X10*3/uL (1.2-4.9); Lymphocytes Percent Auto 7.2 % (20-40); MANUAL DIFF FLAG SCAN; Mean Corpuscular HGB Conc 33.1 g/dl (31.0-35.0); Mean Corpuscular Hemoglobin 25.6 pg (27.0-33.0); Mean Corpuscular Volume 77.3 fL (80-98); Mean Platelet Volume 9.9 fL (9.4-12.3); Monocytes Absolute Auto 0.4 X10*3/uL (0.1-1.2); Monocytes Percent Auto 5.6 % (2-11); Neutrophils Absolute Auto 5.5 X10*3/uL (2.0-8.3); Neutrophils Percent Auto 86.3 % (45-73); Platelet Count 155 X10*3/uL (160-400); Red Blood Count 5.24 X10*6/uL (4.20-5.50); Red Cell Distribution Width 20.6 % (11.0-16.0); SCAN SMEAR FLAG 1; White Blood Count 6.4 X10*3/uL (4.8-10.8)
[2020-07-24 06:12] LABS: Anion Gap 21 (12-20); Blood Urea Nitrogen 61 mg/dL (9-16); Calcium 8.1 mg/dL (8.4-10.2); Carbon Dioxide 16 mmol/L (22-29); Chloride 100 mmol/L (96-108); Creatinine Clr Calc Pharmacy 25.8; Estimated Glomerular Filt Rate 39; Glucose Random 115 mg/dL (60-115); Potassium 4.5 mmol/L (3.3-5.1); Sodium 132 mmol/L (135-145)
[2020-07-24 06:14] LABS: SLIDE REVIEW VERIFIED
[2020-07-24 06:44] LABS: Ammonia 78 umol/L (13-55)
[2020-07-24] MEDS: Heparin Sodium,Porcine 5,000 UNIT/ML VIAL 5000 UNIT SUBCUT (06:48)
[2020-07-24 07:04] LABS: INTERNATIONAL NORM RATIO 2.2 (0.9-1.1); Prothrombin Time 25.9 SEC (10.8-13.0)
[2020-07-24 07:07] LABS: Troponin-I High Sensitivity 79.9 ng/L (<3.5-17.0)
[2020-07-24 07:45] LABS: Glucose, Whole Blood 125 mg/dL (60-115)
--- NOTE | 2020-07-24 10:52 | HO.RADPN ---
RADIOLOGY Narrative Narrative: RLQ paracentesis performed using 5 Fr rapidcentesis catheter. 9 L clear yellow fluid removed. No specimen sent.
[2020-07-24 12:18] LABS: Glucose, Whole Blood 149 mg/dL (60-115)
--- NOTE | 2020-07-24 13:40 | MHC.CM.PN ---
PATIENT LIVES WITH HER SON/ASSESSMENT NURSE PRACTITIONER. SHE ALSO HAS [facility] 5 DAYS/WEEK. - PATIENT HAS DAY AND AFTERNOON HOURS. PATIENT RELIES ON A CANE, WALKER, AND TRANSPORT CHAIR. JEAN (SON) REPORTS THAT HE IS THE HCP, BUT CM IS UNABLE TO FIND ON FILE. PER REQUEST OF SON AND PATIENT, REFERRAL PLACED TO [facility], WHO HAVE NOW MADE CONTACT WITH SON. CASE MANAGEMENT FOLLOWING. IMM 07/24 IN CHART
[2020-07-24] MEDS: Albumin Human 25 % 100 ML IV ×2 (14:38→18:11)
--- NOTE | 2020-07-24 15:40 | HO.PM.IMPN ---
Subjective Subjective Date of Service: 07/24/20 <ROBBY Geller - Last Filed: 07/24/20 15:51> 07/24/20 <Pelon Lam MD - Last Filed: 07/27/20 08:04> Interval History: f/u admission for ascites, abdominal pain Abdominal pain improved, no complaints at this time <ROBBY Geller - Last Filed: 07/24/20 15:51> Review of Systems Review of Systems: Yes all other systems are reviewed and are negative <ROBBY Geller - Last Filed: 07/24/20 15:51> Constitutional Constitutional: Denies chills and Denies fever(s) <ROBBY Geller - Last Filed: 07/24/20 15:51> Cardiovascular Cardiovascular: Denies chest pain <ROBBY Geller - Last Filed: 07/24/20 15:51> Respiratory Respiratory: Denies cough <ROBBY Geller - Last Filed: 07/24/20 15:51> Physical Exam Vital Signs: Vital Signs: Last Vital Signs Temp 97.7 F 07/24/20 14:00 Pulse 90 07/24/20 14:00 Resp 18 07/24/20 14:00 BP 120/77 07/24/20 14:00 Pulse Ox 95 07/24/20 14:00 Body Mass Index 29.2 <ROBBY Geller - Last Filed: 07/24/20 15:51> Const: General: comfortable, no acute distress, alert and awake <ROBBY Geller - Last Filed: 07/24/20 15:51> Nutritional Appearance: thin <ROBBY Geller - Last Filed: 07/24/20 15:51> HENMT: Head: Yes normocephalic and Yes atraumatic <ROBBY Geller - Last Filed: 07/24/20 15:51> Eyes: Sclerae: sclerae normal <ROBBY Geller Last Filed: 07/24/20 15:51> Resp: Effort & Inspection: normal respiratory effort and no respiratory distress <ROBBY Geller - Last Filed: 07/24/20 15:51> Cardio: Rate: regular rate <ROBBY Geller Last Filed: 07/24/20 15:51> Rhythm: regular rhythm <ROBBY Geller Last Filed: 07/24/20 15:51> GI: Palpation (GI): Soft to palpation, nontender, no guarding and Ascites present <ROBBY Geller Last Filed: 07/24/20 15:51> Neuro: Cranial nerves: Yes CN's II-XII intact bilaterally and Yes Bilaterally intact EOM present <ROBBY Geller Last Filed: 07/24/20 15:51> Objective Data Current Medications Generic Name Dose Route Start Last Admin Trade Name Freq PRN Reason Stop Dose Admin Acetaminophen 650 mg 07/24/20 00:20 Acetaminophen 325 Mg Tablet PO Q6H PRN Pain, Mild (Pain Scale 1-3) Docusate Sodium 100 mg 07/24/20 00:20 Docusate Sodium 100 Mg Capsule PO DAILY PRN Constipation Insulin Human Lispro 0 unit 07/24/20 07:30 07/24/20 12:39 Insulin Lispro 100 Unit/Ml 3 Ml Vial SUBCUT Not Given QIDACHS VY Protocol Ondansetron HCl 4 mg 07/24/20 00:20 Ondansetron Hcl 4 Mg/2 Ml Vial IVPUSH Q8H PRN Nausea and Vomiting Sodium Chloride 3 ml 07/24/20 00:20 07/24/20 08:41 0.9 % Sodium Chloride Flush 3 Ml Syringe IVFLUSH Not Given QSHIFT VY <ROBBY Geller Last Filed: 07/24/20 15:51> Labs CBC & Chem 7: : 07/24/20 04:40 07/24/20 04:40 <ROBBY Geller Last Filed: 07/24/20 15:51> Assessment and Plan (1) Ascites: Status: Acute <ROBBY Geller Last Filed: 07/24/20 15:51> Assessment and Plan: This is an 85-year-old female who presents from home with history of hepatocellular carcinoma for failure to thrive as well as abdominal distension. Underwent paracentesis in the ED. ascites secondary to HCC, liver cirrhosis s/p therapeutic paracentesis with 9L removed Unfortunately no fluid studies were obtained, but no clinical signs of SBP -continue spironolactone failure to thrive most likely secondary to advancing cancer -hospice evaluation coagulopathy secondary to liver failure/ACC - monitor for any bleed HCC advancing per imaging -Hematology-Oncology consult pending -continue home pain medication -continue sorafenib if able to bring from home diabetes mellitus - start low-dose sliding scale - hold metformin - diabetic diet hypertension - continue spironolactone HLD - continue statin h/o seizure continue keppra DVT prophylaxis heparin subQ Code status- discussion with patient and son who is her healthcare proxy and decision was made to change her to DNR/DNI status Attending-Dr. Lam <ROBBY Geller - Last Filed: 07/24/20 15:51> Attending Attestation: Patient seen and examined independently and I was present during otero portion of E/M service. Agree with ROBBY Nelson's history, physical, assessment, and plan. <Pelon Lam MD - Last Filed: 07/27/20 08:04>
--- NOTE | 2020-07-24 16:07 | PM.HEMONCCN ---
Subjective - Subjective Chief complaint: Consult for: 1. HCC. 2. Breast cancer. Patient: new to practice Consult date: 07/24/20 Requesting Physician: Alonzo. Primary Care Provider: Marina Romero MD Medical Summary: DIAGNOSIS: 1. HCC. 2. BREAST CANCER. HPI - Consult Narrative Reason for consult: Consult for: 1. HCC. 2. Breast cancer. Narrative: Duyen Webber is a pleasant 85 year old lady, with past medical history of HCC, HTN, HLD, breast cancer, status post mastectomy, cirrhosis of liver with ascites, diabetes. She has been maintained on sorafenib for HCC. She was brought in with complaints of failure to thrive as well as abdominal distension. Patient was confused, oriented to self and place only. History is limited as she is a poor historian, only able to give some answers. She underwent a paracentesis in the ER and reported that her abdomen felt better. She denies any headache, change in vision, no chest pain, shortness of breath. She denies any nausea or vomiting, denies any urinary symptoms. Denies any abdominal pain, diarrhea nor constipation. VS: stable with no significant abnormal vitals. Labs: significant for WBC count of 7.5, hemoglobin of 14.4, hematocrit 43.6, PT of 23.6, INR of 2. Sodium of 131, potassium of 4.7, BUN of 59 creatinine of 1.44 which is higher than her baseline of 1, total bili of 1.8, AST of 111, ALT of 97, alk-phos of 240, 71.5 , albumin of 2.7, UA negative. Abdominal CT revealed: Massive ascites, nodularity in omentum with evidence of carcinomatosis, shrunken cirrhotic liver with large central hepatic cellular carcinoma, which has increased since the prior study. Review of Systems - Constitutional Reports system reviewed and no additional complaints, except as documented, Reports difficulty sleeping, Reports lack of energy, Reports malaise, Reports weight loss - Eyes Reports system reviewed and no additional complaints, except as documented - ENT Reports system reviewed and no additional complaints, except as documented - Cardiovascular Reports system reviewed and no additional complaints, except as documented - Respiratory Reports no additional respiratory complaints - Gastrointestinal Reports system reviewed and no additional complaints, except as documented - Genitourinary Reports no additional female genitourinary complaints - Musculoskeletal Reports system reviewed and no additional complaints, except as documented - Integumentary/Breasts Skin/Breast: Reports no additional skin complaints - Neurologic Reports system reviewed and no additional complaints, except as documented - Psychiatric Reports system reviewed and no additional complaints, except as documented - Endocrine Reports no additional endocrine complaints - Hematologic/Lymphatic Reports system reviewed and no additional complaints, except as documented - Allergic/Immunologic Reports system reviewed and no additional complaints, except as documented Oncology Screenings - ECOG Performance Status ECOG Performance Status: 2 [facility], 1928[facility]1983 Medical History: Medical History (Last Reviewed 07/24/20 @ 05:48 by Malathi Mccann MD) Abrasion Acute cervical sprain Breast cancer Cirrhosis of liver with ascites Contusion Dyslipidemia Elbow sprain Esophageal varices without bleeding Hand sprain History of right breast cancer Hx of breast cancer Hx of hemorrhoids Hypercholesterolemia Hypertension Intracranial hemorrhage Knee sprain Osteoporosis Rheumatoid arthritis Seizure disorder Sprain of wrist Thrombocytopenia Functional capacity: uses cane/walker Patient : No Family History: Family History (Last Reviewed 07/24/20 @ 05:48 by Malathi Mccann MD) Father No problems noted. Mother History of heart attack Brother History of heart attack Brother History of heart attack Brother No problems noted. Surgical History: Surgical History (Last Reviewed 07/24/20 @ 05:48 by Malathi Mccann MD) History of cholecystectomy Onset Date: ~2010 History of hemorrhoidectomy History of liver biopsy Onset Date: ~04/02/19 History of right mastectomy Onset Date: ~1985 Hx of colonoscopy Hx of endoscopy Social History: Social History (Last Reviewed 07/24/20 @ 05:48 by Malathi Mccann MD) Living Situation History: Household Members: Children Housing: House Do you presently have visiting nurse or other home services: Yes Alcohol History: Alcohol intake: current Alcohol History Details: Alcohol intake frequency: does not drink Tobacco History: Smoking Status: Never smoker Second Hand Smoke Exposure: No Substance Use History: Use of substances other than those prescribed or required for medical reasons: No Currently Displaying Signs/Symptoms of Drug Intoxication Withdrawal: No Domestic Abuse History: Have you been hit, kicked, punched, or otherwise hurt by someone within the past year? If so, by whom?: No Do you feel safe in your current relationship?: No Current Relationship Is there a partner from a previous relationship who is making you feel unsafe now?: No Are you made to feel afraid or neglected: No Advance Directives: Advance Directives: Yes Advance Directives on File: Yes Advance Directives Date on File: 05/19/14 Homicidal Assessment: Do you have thoughts of harming others: None Do you have a plan to hurt others: No Plan Nutrition Assessment: Recently lost weight without trying: No Nutrition Risks: Difficulty swallowing Patient : No : No Occupation Assessmet: service: No Current occupational status: disabled Smoking status: Never smoker Home Medications and Allergies Current Medications: Current Medications Generic Name Dose Route Start Last Admin Trade Name Freq PRN Reason Stop Dose Admin Acetaminophen 650 mg 07/24/20 00:20 Acetaminophen 325 Mg Tablet PO Q6H PRN Pain, Mild (Pain Scale 1-3) Docusate Sodium 100 mg 07/24/20 00:20 Docusate Sodium 100 Mg Capsule PO DAILY PRN Constipation Folic Acid 1 mg 07/25/20 09:00 Folic Acid 1 Mg Tablet PO DAILY COUNTS INCLUDE 234 BEDS AT THE [facility] Insulin Human Lispro 0 unit 07/24/20 07:30 07/24/20 12:39 Insulin Lispro 100 Unit/Ml 3 Ml Vial SUBCUT Not Given QIDACHS COUNTS INCLUDE 234 BEDS AT THE [facility] Protocol Levetiracetam 500 mg 07/24/20 21:00 Levetiracetam 500 Mg Tablet PO BID COUNTS INCLUDE 234 BEDS AT THE [facility] Non-Formulary Medication 2 tab 07/24/20 21:00 Sorafenib [Nexavar] PO BID COUNTS INCLUDE 234 BEDS AT THE [facility] Ondansetron HCl 4 mg 07/24/20 00:20 Ondansetron Hcl 4 Mg/2 Ml Vial IVPUSH Q8H PRN Nausea and Vomiting Oxycodone HCl 5 mg 07/24/20 21:00 Oxycodone Hcl Immed Release 5 Mg Tablet PO BID COUNTS INCLUDE 234 BEDS AT THE [facility] Sodium Chloride 3 ml 07/24/20 00:20 07/24/20 08:41 0.9 % Sodium Chloride Flush 3 Ml Syringe IVFLUSH Not Given QSHIFT COUNTS INCLUDE 234 BEDS AT THE [facility] Spironolactone 25 mg 07/25/20 09:00 Spironolactone 25 Mg Tablet PO DAILY COUNTS INCLUDE 234 BEDS AT THE [facility] Protocol Home Medications Medication Instructions Recorded Confirmed Type alendronate 1 tab PO QWEEK 07/23/20 07/23/20 History ferrous sulfate 1 tab PO DAILY 07/23/20 07/23/20 History folic acid 1 tab PO DAILY 07/23/20 07/23/20 History lancets [FreeStyle Lancets] 07/23/20 07/23/20 History levetiracetam 1 tab PO BID 07/23/20 07/23/20 History metformin 1 tab PO BID 07/23/20 07/23/20 History oxycodone 1 tab PO BID 07/23/20 07/23/20 History simvastatin 1 tab PO DAILY 07/23/20 07/23/20 History spironolactone 25 mg PO DAILY 07/23/20 07/23/20 History Allergies Allergy/AdvReac Type Severity Reaction Status Date / Time No Known Allergies Allergy Verified 06/30/20 15:26 Physical Exam Vital signs: Vital Signs Temp 97.4 F 07/24/20 15:51 Pulse 84 07/24/20 15:51 Resp 15 07/24/20 15:51 BP 137/78 07/24/20 15:51 Pulse Ox 98 07/24/20 15:51 Intake & Output 07/23/20 07/24/20 07/24/20 18:59 06:59 18:59 Intake Total 580 / 580 Balance 580 / 580 Intake: Intake, Oral Amount 480 / 480 Intake, IV Amount 100 / 100 Albumin Human 25 % 100 ml @ 100 100 / 100 mls/hr IV Q1H COUNTS INCLUDE 234 BEDS AT THE [facility] Rx#: [id number] Other: Lunch % Eaten 100% Number of Unmeasured Voids 1 Urine Bedside Commode Urine Color Yellow Last Bowel Movement 07/24/20 Stool Bedside Commode Stool Amount Small Stool Color Brown Stool Consistency Formed Weight 65.771 kg 65.7 kg [place] Weight in Grams 51700 Weight 65.7 kg - Constitutional Present: moderate distress - Routine HEENT Exam Head: Present: normal inspection ENT: Present: mucous membranes moist - Routine Neck Exam Present: supple - Routine Respiratory Exam Present: CTAB - Routine Cardiovascular Exam Cardiovascular: Present: RRR, S1, S2 - Routine Abdominal Exam Present: distended, normal bowel sounds - Routine Rectal Exam Patient deferred: digital exam - Routine Extremities Exam Present: nontender - Routine Back/Spine/Pelvis Exam Back/Spine: Present: full ROM - Routine Skin Exam Present: intact - Routine Neurological Exam Present: alert, oriented X3 - Detailed Neurological Exam: Coma Scale Eye Opening: Spontaneous (4) Verbal Response: Oriented (5) Motor Response: Obeys commands (6) [place] Coma Scale Total: 15 - Routine Psychiatric Exam Present: flat affect Hem/Onc Consult Result - Labs CBC & Chem 7: 07/24/20 04:40 07/24/20 04:40 Labs: Short CBC 07/23/20 07/24/20 Range/Units 16:28 04:40 WBC 7.5 6.4 (4.8-10.8) X10*3/uL Hgb 14.4 13.4 (12.0-16.0) g/dl Hct 43.6 40.5 (37-47) % Plt Count 187 155 L (160-400) X10*3/uL BMP 07/23/20 07/24/20 20:49 04:40 Sodium 131 L 132 L Potassium 4.7 4.5 Chloride 97 100 Carbon Dioxide 20 L 16 L BUN 59 H D 61 H Creatinine 1.44 H 1.29 Calcium 8.2 L 8.1 L Liver Function 07/23/20 Range/Units 20:49 Total Bilirubin 1.8 H (0.0-1.0) mg/dL AST 111 H (5-31) U/L ALT 97 H (0-31) U/L Alkaline Phosphatase 240 H D (39-117) U/L Albumin 2.7 L (3.5-5.0) g/dL Urine 07/23/20 Range/Units 21:29 Urine Color YELLOW Urine Appearance CLEAR Urine pH 5.5 (5.0-8.0) Ur Specific [place] 1.015 (1.005-1.025) Urine Protein NEG (NEG-TRACE) MG/DL Urine Glucose (UA) NEG (NEG) MG/DL Assessment and Plan (1) HCC (hepatocellular carcinoma) Status: Acute This is a pleasant 85-year-old lady who was admitted with ascites and failure to thrive. CT scan of the abdomen revealed: 1. Massive ascites is present. This is responsible for the patient's abdominal swelling. 2. Nodularity in omentum worrisome for carcinomatosis. 3. Shrunken cirrhotic liver with large central hepatocellular carcinoma which has increased in size since the prior study. 4. Other incidental findings as described above. MRI of abdomen: consistent with the history of cirrhosis. There is a heterogeneously T2 bright lesion centered in segment 8 of the liver. This is low in signal on T1-weighted imaging. The mass measures 5.6 x 5.1 x 5.8 cm. On postcontrast imaging this is heterogeneously arterially enhancing. There is subsequent early washout of the lesion on the more delayed phase. There is an additional area of vague arterial enhancement in the caudate lobe which blends with the surrounding liver on the more delayed imaging. Gallbladder is absent. The hepatic veins are patent. The portal vein is patent. PANCREAS: Unremarkable. SPLEEN: Normal. ADRENAL GLANDS: Normal. KIDNEYS AND URETERS: The kidneys are normal in size, shape, and enhance symmetrically. No hydronephrosis. No perinephric stranding. Multiple bilateral renal cysts. GASTROINTESTINAL TRACT: No bowel obstruction. No ascites or fluid collection. ABDOMINAL WALL: No significant hernia is appreciated. LYMPH NODES: No lymphadenopathy. VASCULAR: Normal caliber aorta. Small varices in the upper abdomen. OSSEOUS STRUCTURES: Marrow signal normal. IMPRESSION: Cirrhotic liver. Mass centered in segment 8 of the liver may correspond to the previously seen growing lesion on ultrasound. This is consistent with hepatocellular carcinoma. Previous MRI from 2019: IMPRESSION: Cirrhotic-appearing liver. Stable appearance to the signal abnormality high in the medial segment of the left lobe of the liver from July 2016 MRI, question representing area of focal fatty infiltration or atypical appearance of a regenerating nodule. Stable appearance is reassuring. No new or suspicious liver lesion seen. Small amount of ascites. Upper normal-size spleen. Stable appearance to the bilateral multiple renal cysts. Some cysts represent slightly complex cysts. I got an opinion from IR at [facility], Dr. Medellin, to see if intra hepatic treatment would be an option. His feeling is to start with a less invasive option, Use Sorafanib, and assess tolerability. Could save local regional therapy for later, based upon her response and her physical strength. I arranged for the Sorafenib. She got Started on a lower dose, around mid April. So far she is tolerating it quite well. Last time she came, she had a rash which appeared more fungal. I gave her a prescription for Lotrimin cream to try. She has abdominal distension but she is not uncomfortable at this point. She feels rather tired. She was started on Sorafanib. I wanted to increase the dose, however she felt quite fatigued, so decided to wait on that. PLAN: She now presents with worsening ascites and increased HCC lesion. Will hold off on sorafenib for now. Next agent in line would be lenvatinib. However will let her stabilize, first. All the family's questions were answered to their satisfaction. Thanks,
[2020-07-24 18:12] LABS: Glucose, Whole Blood 161 mg/dL (60-115)
[2020-07-24] MEDS: Insulin Lispro 100 UNIT/ML 3 ML VIAL SUBCUT ×2 (18:14→21:41)
[2020-07-24] MEDS: oxyCODONE HCl Immed Release 5 MG TABLET PO (20:47)
[2020-07-24] MEDS: levETIRAcetam 500 MG TABLET PO (20:47)
[2020-07-24 21:29] LABS: Glucose, Whole Blood 181 mg/dL (60-115)
[2020-07-25 04:00] VITALS: BP 97/60; PULSE 67; RESP 16; TEMP 36; O2SAT 99
[2020-07-25 06:00] VITALS: BMI 27.3
[2020-07-25 07:24] LABS: Glucose, Whole Blood 111 mg/dL (60-115)
[2020-07-25 07:58] VITALS: BP 118/72; PULSE 76; RESP 18; TEMP 36.4; O2SAT 97
[2020-07-25 08:21] LABS: INTERNATIONAL NORM RATIO 2.2 (0.9-1.1); Prothrombin Time 26.5 SEC (10.8-13.0)
[2020-07-25] MEDS: levETIRAcetam 500 MG TABLET PO (08:36)
[2020-07-25] MEDS: oxyCODONE HCl Immed Release 5 MG TABLET PO (08:36)
[2020-07-25] MEDS: Folic Acid 1 MG TABLET PO (08:37)
[2020-07-25 08:38] VITALS: BP 111/68; PULSE 74
[2020-07-25] MEDS: Spironolactone 25 MG TABLET PO (08:38)
[2020-07-25] MEDS: 0.9 % Sodium Chloride Flush 3 ML SYRINGE IVFLUSH (08:54)
--- NOTE | 2020-07-25 09:26 | PM.DS ---
DS: Providers Provider Date of Service: 07/25/20 <ROBBY Geller - Last Filed: 07/25/20 11:50> 07/25/20 <Nik Locke MD - Last Filed: 07/25/20 15:26> Date of admission: 07/23/20 21:35 <ROBBY Geller - Last Filed: 07/25/20 11:50> Primary care physician: Marina Romero MD <ROBBY Geller - Last Filed: 07/25/20 11:50> Consults: 07/24/20 05:47 Consult to Hematology / Oncology Routine Consulting Provider: Tricia Amato Reason for consultation: HCC with abdominal distension Has provider been notified: No <ROBBY Geller - Last Filed: 07/25/20 11:50> DS: Diagnosis Discharge Diagnosis (1) Cirrhosis of liver with ascites: Status: Acute <ROBBY Geller - Last Filed: 07/25/20 11:50> (2) HCC (hepatocellular carcinoma): Status: Acute <ROBBY Geller - Last Filed: 07/25/20 11:50> (3) Failure to thrive: Status: Acute <ROBBY Geller - Last Filed: 07/25/20 11:50> DS: Medications Discharge Medications Home Medications: Home Medications Medication Instructions Recorded Confirmed alendronate 1 tab PO QWEEK 07/23/20 07/23/20 ferrous sulfate 1 tab PO DAILY 07/23/20 07/23/20 folic acid 1 tab PO DAILY 07/23/20 07/23/20 lancets [FreeStyle Lancets] 07/23/20 07/23/20 levetiracetam 1 tab PO BID 07/23/20 07/23/20 metformin 1 tab PO BID 07/23/20 07/23/20 oxycodone 1 tab PO BID 07/23/20 07/23/20 simvastatin 1 tab PO DAILY 07/23/20 07/23/20 sorafenib [Nexavar] 2 tab PO BID 07/23/20 07/23/20 spironolactone 25 mg PO DAILY 07/23/20 07/23/20 <ROBBY Geller - Last Filed: 07/25/20 11:50> DS: Summary Hospital Course Hospital Course: 85-year-old female with past medical history of HCC, HTN, HLD, breast cancer, status post mastectomy, cirrhosis of liver with ascites, diabetes, who is brought into the hospital with complaints of failure to thrive as well as abdominal distension. Patient is confused oriented to self and place only, history is limited as she is a poor historian,But able to give some answers.. It appears the patient was brought in from her family due to failure to thrive as well as abdominal distension. She denies any headache, change in vision, no chest pain, shortness of breath. She denies any nausea or vomiting, denies any urinary symptoms. Denies diarrhea or constipation. Patient reports that she noticed her abdomen to be distended for the past 1 week. Patient was admitted for abdominal pain and failure to thrive. Patient's son reported decreased p.o. intake for several days as well as increasing abdominal distension and pain. 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 She was admitted to the medical surgical floor. She underwent therapeutic paracentesis on 07/24 with 9L removed. No fluid studies were obtained however patient showed no clinical evidence of SBP. She remained afebrile, lab work without leukocytosis. Abdominal pain resolved following paracentesis and she has been tolerating a regular diet. Given advancement of cancer seen on imaging goals of care discussion was had with the patient and her son Carlo the bedside. They decided to change her code status to DNR/DNI only and wished to pursue hospice evaluation. She will be discharged home with hospice. Lasix was added daily. Patient should have repeat BMP in 1 week. Will need ongoing monitoring of ascites to determine need for repeat paracentesis. Was seen by oncology who recommended to hold off on sorafenib for now. Should call for outpatient appointment with oncology. <ROBBY Geller - Last Filed: 07/25/20 11:50> Time Spent with Patient Time attestation: Total time spent providing and/or coordinating discharge services: <ROBBY Geller - Last Filed: 07/25/20 11:50> Discharge coordination time: Greater than 30 minutes <ROBBY Geller - Last Filed: 07/25/20 11:50> Physical Exam Vital Signs: Vital Signs: Last Vital Signs Temp 97.6 F 07/25/20 07:58 Pulse 74 07/25/20 08:38 Resp 18 07/25/20 07:58 BP 111/68 07/25/20 08:38 Pulse Ox 97 07/25/20 07:58 Body Mass Index 27.3 <ROBBY Geller - Last Filed: 07/25/20 11:50> Const: General: comfortable, no acute distress, alert and awake <ROBBY Geller - Last Filed: 07/25/20 11:50> Nutritional Appearance: thin <ROBBY Geller - Last Filed: 07/25/20 11:50> HENMT: Head: Yes normocephalic and Yes atraumatic <ROBBY Geller - Last Filed: 07/25/20 11:50> Eyes: Sclerae: sclerae normal <ROBBY Geller - Last Filed: 07/25/20 11:50> Resp: Effort & Inspection: normal respiratory effort and no respiratory distress <ROBBY Geller - Last Filed: 07/25/20 11:50> Cardio: Rate: regular rate <ROBBY Geller - Last Filed: 07/25/20 11:50> Rhythm: regular rhythm <ROBBY Geller - Last Filed: 07/25/20 11:50> GI: Palpation (GI): Soft to palpation, nontender, no guarding and Ascites present <ROBBY Geller - Last Filed: 07/25/20 11:50> Neuro: Cranial nerves: Yes CN's II-XII intact bilaterally and Yes Bilaterally intact EOM present <ROBBY Geller - Last Filed: 07/25/20 11:50> DS: Data Data Completed and Pending Labs on day of discharge: Laboratory Results - last 24 hr 07/24/20 07/24/20 07/24/20 11:58 18:08 21:15 PT INR POC Glucose 149 H 161 H 181 H 07/25/20 07/25/20 07:15 07:26 PT 26.5 H INR 2.2 H POC Glucose 111 Preliminary micro results at discharge 07/23/20 16:28 Blood Culture - Preliminary Blood - Venous No growth after 24 hours. 07/23/20 15:36 Blood Culture - Preliminary Blood - Venous No growth after 24 hours. <ROBBY Geller - Last Filed: 07/25/20 11:50> Discharge Plan Discharge Patient Disposition: Hospice - Home <ROBBY Geller - Last Filed: 07/25/20 11:50> Referrals: [facility] [Outside] Vargas Zhou MD [Physician] - Tricia Amato MD [Physician] - Marina Mills MD [Primary Care Provider] - <ROBBY Geller - Last Filed: 07/25/20 11:50> Discharge Medications: New furosemide [Lasix] 20 mg tablet 20 mg PO DAILY 30 Days Qty: 30 RF: 0 Continued alendronate 35 mg tablet 1 tab PO QWEEK RF: 0 ferrous sulfate 325 mg (65 mg iron) tablet 1 tab PO DAILY RF: 0 folic acid 1 mg tablet 1 tab PO DAILY RF: 0 metformin 500 mg tablet 1 tab PO BID RF: 0 levetiracetam 500 mg tablet 1 tab PO BID RF: 0 spironolactone 25 mg tablet 25 mg PO DAILY RF: 0 simvastatin 20 mg tablet 1 tab PO DAILY RF: 0 oxycodone 5 mg tablet 1 tab PO BID RF: 0 (DME) lancets [FreeStyle Lancets] 28 gauge misc MISCELLANEOUS DAILY RF: 0 Discontinued Nexavar 200 mg tablet 2 tab PO BID RF: 0 <ROBBY Geller - Last Filed: 07/25/20 11:50> Discharge Orders: Discharge Order (Routine); Ordered 07/25/20 Ordered By: Cheyanne Rosado <ROBBY Geller - Last Filed: 07/25/20 11:50> Activity on Discharge: As tolerated <ROBBY Geller - Last Filed: 07/25/20 11:50> As tolerated <Nik Locke MD - Last Filed: 07/25/20 15:26> Stand Alone Forms: Patient Portal Discharge page <ROBBY Geller - Last Filed: 07/25/20 11:50> Care Plan Goals: See below <ROBBY Geller - Last Filed: 07/25/20 11:50> Health Concerns: Abdominal pain - resolved after paracentesis Ascites - related to HCC and liver cirrhosis <ROBBY Geller - Last Filed: 07/25/20 11:50> Plan of Treatment: Home with hospice care Call to schedule follow up with oncology Start taking lasix daily, should have repeat BMP in 1 week <ROBBY Geller - Last Filed: 07/25/20 11:50> Assessment: See discharge instructions <ROBBY Geller - Last Filed: 07/25/20 11:50> Discharge Date/Time: 07/25/20 14:15 <ROBBY Geller - Last Filed: 07/25/20 11:50>
--- NOTE | 2020-07-25 10:30 | MHC.CM.PN ---
Addendum entered by Iwona Soto 07/25/20 10:53: TRANSPORT SCHEDULED FOR 1400 FROM [facility] TO [facility]. Original Note: MOLST AND HCP COMPLETED AND FAXED INTO [employer]. PLAN IS 1400 TRANSPORT VIA [facility] TO HOME. PA, PATIENT, SON (IN ROOM), RN, AND UNIT AWARE OF PLAN.
[2020-07-25 11:14] VITALS: BP 105/67; PULSE 70; RESP 18; TEMP 36.3; O2SAT 98
[2020-07-25 11:19] LABS: Glucose, Whole Blood 128 mg/dL (60-115)
== END 2020-07-25 14:15 | disposition hospice, home (50) | DRG 436 ==
LOC: HO.ED 15:28 → HO.EDOVER 22:02 → HO.S3 22:24
PROVIDERS: Emergency Medicine; Family Medicine; Nurse Practitioner Family; Radiology Diagnostic Radiology; Admitting Provider Internal Medicine; Emergency Provider Emergency Medicine; PCP Internal Medicine; Visit Provider Hospitalist
PROC: 0W9G3ZZ Drainage of Peritoneal Cavity, Percutaneous Approach (ICD-10-PCS; principal; 2020-07-24 12:00)
DX: C22.0 Liver cell carcinoma (principal); D68.4 Acquired coagulation factor deficiency; C78.6 Secondary malignant neoplasm of retroperitoneum and peritoneum; R18.0 Malignant ascites; R13.10 Dysphagia, unspecified; K74.60 Unspecified cirrhosis of liver; I10 Essential (primary) hypertension; G40.909 Epilepsy, unspecified, not intractable, without status epilepticus; E78.5 Hyperlipidemia, unspecified; R62.7 Adult failure to thrive; Z68.27 Body mass index [BMI] 27.0-27.9, adult; E11.9 Type 2 diabetes mellitus without complications; Z85.3 Personal history of malignant neoplasm of breast; Z20.822 Contact with and (suspected) exposure to COVID-19; Z79.84 Long term (current) use of oral hypoglycemic drugs; Z79.891 Long term (current) use of opiate analgesic; Z79.899 Other long term (current) drug therapy; Z66 Do not resuscitate
CPT/HCPCS: 36415; 49083; 74176; 80048; 80053; 81003; 82140; 82947; 84484; 85025; 85610; 87040; 87635; 93005; 99285; P9047